=== PATIENT | female | born 1940 | race Caucasian/White ===

== ENCOUNTER 2016-06-06 07:58 | Day surgery (SDC) | payer MEDICARE ==
[2016-06-05 15:05] VITALS: BMI 30.8
[~2016-06-06 07:58] MED LIST: SODIUM CHLORIDE 0.9% 1,000 ML IV SCH; ceFAZolin 2 GM in SODIUM CHLORIDE 0.9% 100 ML IVPB ONE
[2016-06-06 08:29] VITALS: RESP 16; TEMP 97.7
[2016-06-06 08:35] LABS: INR 2.6 (<1.1)
--- NOTE | 2016-06-06 09:58 | P.PCN ---
Preoperative Diagnosis: Twelve-lead ECG ECG on 2016 shows sinus mechanism normal DE narrow QRS left axis deviation inverted T waves in lead 3 Tilt table test Baseline blood pressure 130/62 mmHg. Baseline heart rate 67 beats a minute Patient tilted upright at an angle of 70 per protocol Normal heart rate and blood pressure response to upright tilting it patient had an episode where she felt weird, was not able to speak clearly and felt as if she was floating. The symptoms last for about 1 minute. At that time her blood pressure was between 134/68 mmHg-145/67 mmHg. Heart rates are in the 60s. She was laid supine the end of the procedure Impression Normal heart rate and blood pressure response to upright tilting
[2016-06-06] MEDS ORDERED: ceFAZolin 1,000 MG/50 ML BAG (PMX) IVPB ONE (10:05)
[2016-06-06] MEDS: MIDAZOLAM 2 MG/2 ML VIAL IVP ONE ×2 (10:09→10:12)
[2016-06-06] MEDS: LIDOCAINE 2% INJ 20 MG/ML SQ ONE ×2 (10:13→10:17)
[2016-06-06 11:10] VITALS: BP 115/58; PULSE 66
--- NOTE | 2016-06-06 12:17 | P.PCN ---
Preoperative Diagnosis: Loop monitor implant Primary physicians: Dr. Alves Purchasing Officer: Dr. Bsailio Indication: Rule out atrial fibrillation, silent episodes Patient was brought to the EP lab in a fasting state. Written informed consent was obtained prior to the procedure. The left pectoral area was prepped and draped per protocol. Intravenous antibiotic was administered preoperatively. A subcutaneous Loop monitor was implanted successfully and the wound was closed per protocol. The device was programmed to detect significant ollie- arrhythmic and tachy-arrhythmic events, per protocol. Device and programming details: A. fib protocol programmed Patient underwent EP procedure under conscious sedation/moderate sedation, monitoring of the level of consciousness and physiologic parameters including but not limited to vital signs and oxygenation. Patient tolerated the procedure well without any acute complications. Start time: Stop time:
== END 2016-06-06 11:38 | disposition home or self-care (01) ==
LOC: CATHEP 07:58
PROVIDERS: ATTEND Internal Medicine Clinical Cardiac Electrophysiology
DX: R55 Syncope and collapse (principal); I48.0 Paroxysmal atrial fibrillation; Z79.01 Long term (current) use of anticoagulants; I10 Essential (primary) hypertension; E78.00 Pure hypercholesterolemia, unspecified; Z79.82 Long term (current) use of aspirin; Z79.899 Other long term (current) drug therapy
CPT/HCPCS: 93005; 33282; 93660; 85610; 99152; C1764; J2001; J2250; J0690

== ENCOUNTER → 2017-02-25 | Day surgery (SDC) | payer MEDICARE ==
[2017-02-24 12:29] VITALS: BMI 31.6
[~2017-02-25] MED LIST changes: +MIDAZOLAM 2 MG/2 ML VIAL IVP ONE; +MIDAZOLAM 2 MG/2 ML VIAL ONE; +SODIUM CHLORIDE 0.9% 250 ML IV ONE; -ceFAZolin 2 GM in SODIUM CHLORIDE 0.9% 100 ML IVPB ONE; +fentaNYL (PF) 50 MCG/ML 2 ML AMP IVP ONE; +fentaNYL (PF) 50 MCG/ML 2 ML AMP ONE
[2017-02-25 11:02] VITALS: RESP 18; TEMP 98
[2017-02-25 11:44] LABS: INR 2.5 (<1.2)
[2017-02-25] MEDS: BENZOCAINE SPRAY 1 CAN MUCOUS MEM ONE ×2 (12:01→12:12)
--- NOTE | 2017-02-25 13:12 | ECHOT ---
TRANSESOPHAGEAL ECHOCARDIOGRAM PERFORMING PHYSICIAN: Ovidio Sunshine MD PROCEDURE PERFORMED: Transesophageal echocardiogram. INDICATIONS: Mrs. Caballero is a 76-year-old female who was advised transesophageal echocardiogram because to evaluate for pulmonary hypertension. PROCEDURE DESCRIPTION: The patient was given intravenous sedation with Versed and fentanyl and transesophageal echocardiogram was performed without any complications. FINDINGS: Left ventricular chamber is mildly dilated with evidence of global hypokinesia with estimated ejection fraction in the range of 35% to 40%. Bi-atrial enlargement is noted. Mitral valve is mildly thickened. There is a mild to moderate mitral regurgitation noted. There is a moderate degree of tricuspid regurgitation noted and minimal aortic regurgitation is noted. Aortic valve is thickened. Tricuspid valve morphology is normal. Left atrial appendage is clear. There is no evidence of any thrombus. Interatrial septum is intact. There is no evidence of any PFO by saline contrast study. The right-sided pressures were calculated in the range of 45 to 50 mmHg. FINAL IMPRESSION: 1. This study reveals mildly enlarged left ventricular chamber size with global hypokinesia with estimated ejection fraction of 35% to 40%. 2. Mild thickening of the mitral and aortic leaflets is noted. 3. There is a [id number] degree of mitral and moderate degree of tricuspid regurgitation noted. 4. The pulmonary artery systolic pressure is calculated in the range of 45 to 50 mmHg. 5. Interatrial septum is intact. There is no evidence of any patent foramen ovale by saline contrast study. 6. There is a mild atherosclerotic plaque noted in descending thoracic aorta. MMODL / IJN: [id number] /
[2017-02-25 14:45] VITALS: BP 138/62; PULSE 72
== END ==
LOC: CATHCVL 10:29
PROVIDERS: ATTEND Internal Medicine Cardiovascular Disease
DX: I08.3 Combined rheumatic disorders of mitral, aortic and tricuspid valves (principal); I70.0 Atherosclerosis of aorta; I48.0 Paroxysmal atrial fibrillation; I25.10 Atherosclerotic heart disease of native coronary artery without angina pectoris; I10 Essential (primary) hypertension; E78.5 Hyperlipidemia, unspecified; E03.9 Hypothyroidism, unspecified; Z79.01 Long term (current) use of anticoagulants; Z79.82 Long term (current) use of aspirin; Z79.899 Other long term (current) drug therapy
CPT/HCPCS: 93312; 93320; 93325; 85610; J2250; J3010

== ENCOUNTER 2017-05-21 19:40 | Emergency (ER) | payer MEDICARE ==
--- NOTE | 2017-05-21 20:20 | ED ---
General Adult HPI - General Source: patient, RN notes reviewed Mode of arrival: ambulatory Limitations: no limitations <Henrry Jain - Last Filed: 05/21/17 21:03> <Libby Horowitz - Last Filed: 05/21/17 22:29> <Henrry Garnett - Last Filed: 05/21/17 22:52> - General Chief complaint: Shortness of Breath Stated complaint: RODNEY/constipation/rectal bleeding Time Seen by Provider: 05/21/17 19:50 - History of Present Illness Initial comments: This is a 69-year-old female presents emergency Department she's been constipated for 3 or 4 days. According to the family the patient was attempted to be disimpacted by the daughter and now she has some rectal bleeding. Patient is also on Coumadin. Patient also complained of some shortness of breath. Patient has had no calf pain or leg swelling. Patient has no chest pain or palpitations. Patient denies any recent fever chills or cough. Patient denies any abdominal pain just a little abdominal distention. Patient denies headache patient denies numbness or weakness. (Henrry Jain) - Related Data Home Medications Medication Instructions Recorded Confirmed Aspirin 81 mg PO DAILY 08/20/13 05/21/17 Atorvastatin [Lipitor] 40 mg PO HS 08/20/13 05/21/17 Famotidine [Pepcid] 20 mg PO DAILY 08/20/13 05/21/17 Furosemide [Lasix] 40 mg PO DAILY 08/20/13 05/21/17 Probenecid 500 mg PO DAILY 08/20/13 05/21/17 Thyroid,Pork [[place] Thyroid] 90 mg PO DAILY 08/20/13 05/21/17 Cyanocobalamin (Vitamin B-12) 1,000 mcg PO DAILY@1200 02/27/17 05/21/17 [Vitamin B-12] Metoprolol Succinate (ER) [Toprol 50 mg PO DAILY 02/27/17 05/21/17 Xl] Pyridoxine [Vitamin B-6] 50 mg PO DAILY@1200 02/27/17 05/21/17 Folic Acid 1 mg PO DAILY@1200 05/21/17 05/21/17 Potassium Chloride ER [K-Dur 20] 20 meq PO DAILY 05/21/17 05/21/17 Warfarin [Coumadin] 2.5 mg PO HS 05/21/17 05/21/17 Allergies Allergy/AdvReac Type Severity Reaction Status Date / Time No Known Allergies Allergy Unverified 05/21/17 20:22 Review of Systems ROS Other: All systems not noted in ROS Statement are negative. <Henrry Jain - Last Filed: 05/21/17 21:03> ROS Other: All systems not noted in ROS Statement are negative. <Libby Horowitz - Last Filed: 05/21/17 22:29> ROS Other: All systems not noted in ROS Statement are negative. <Henrry Garnett - Last Filed: 05/21/17 22:52> ROS Statement: Those systems with pertinent positive or pertinent negative responses have been documented in the HPI. Past Medical History Past Medical History: CVA/TIA, GERD/Reflux, Hyperlipidemia, Hypertension, Thyroid Disorder Additional Past Medical History / Comment(s): See Dr Wang's H&P. SYNCOPE, SEIZURE LIKE EPISODES WITHOUT MENTAL INVOLVEMENT History of Any Multi-Drug Resistant Organisms: None Reported Past Surgical History: Heart Catheterization, Hysterectomy Additional Past Surgical History / Comment(s): Partial thyroidectomy. BILAT CATARACTS Past Anesthesia/Blood Transfusion Reactions: No Reported Reaction Past Psychological History: No Psychological Hx Reported Smoking Status: Never smoker - Past Family History Mother Family Medical History: Congestive Heart Failure (CHF), Coronary Artery Disease (CAD), Diabetes Mellitus Sister(s) Family Medical History: Cancer Additional Family Medical History / Comment(s): x2 sisters Brother(s) Family Medical History: Cancer <Henrry Jain - Last Filed: 05/21/17 21:03> General Exam Limitations: no limitations <Henrry Jain - Last Filed: 05/21/17 21:03> <Libby Horowitz - Last Filed: 05/21/17 22:29> <Henrry Garnett - Last Filed: 05/21/17 22:52> - General Exam Comments Initial Comments: GENERAL: Patient is well-developed and well-nourished. Patient is nontoxic and well- hydrated and is in mild distress. ENT: Neck is soft and supple. No significant lymphadenopathy is noted. Oropharynx is clear. Moist mucous membranes. Neck has full range of motion without eliciting any pain. There is no thyroid enlargement and no masses were felt. EYES: The sclera were anicteric and conjunctiva were pink and moist. Extraocular movements were intact and pupils were equal round and reactive to light. Eyelids were unremarkable. PULMONARY: Unlabored respirations. Good breath sounds bilaterally. No audible rales rhonchi or wheezing was noted. CARDIOVASCULAR: There is a regular rate and rhythm without any murmurs gallops or rubs. ABDOMEN: Soft and nontender with normal bowel sounds. No palpable organomegaly was noted. There is no palpable pulsatile mass. SKIN: Skin is clear with no lesions or rashes and otherwise unremarkable. NEUROLOGIC: Patient is alert and oriented x3. Cranial nerves II through XII are grossly intact. Motor and sensory are also intact. Normal speech, volume and content. Symmetrical smile. MUSCULOSKELETAL: Normal extremities with adequate strength and full range of motion. LYMPHATICS: No significant lymphadenopathy is noted PSYCHIATRIC: Normal psychiatric evaluation. (Henrry Jain) Course <Henrry Jain - Last Filed: 05/21/17 21:03> <Libby Horowitz - Last Filed: 05/21/17 22:29> <Henrry Garnett - Last Filed: 05/21/17 22:52> Vital Signs 05/21/17 05/21/17 05/21/17 19:50 20:28 20:36 Temperature 97.2 F L 97.6 F Pulse Rate 101 H 108 H Respiratory 25 H 20 18 Rate Blood Pressure 134/64 143/80 O2 Sat by Pulse 100 99 Oximetry 05/21/17 05/21/17 21:50 22:36 Temperature Pulse Rate 106 H 106 H Respiratory 15 20 Rate Blood Pressure 127/68 136/80 O2 Sat by Pulse 100 98 Oximetry - Reevaluation(s) Reevaluation #1: 05/21/17 22:52 Patient has successful disimpaction here in the emergency room, no current abdominal pain no bleeding, no significant shortness of breath (Henrry Garnett) EKG Findings - EKG Comments: EKG Findings:: EKG shows a flutter rate of 104, QRS 112, QTC 426 <Henrry Garnett - Last Filed: 05/21/17 22:52> Procedures - Rectal Disimpaction Consent Obtained: verbal consent Indication: fecal impaction Procedural Sedation: No Technique: manual disimpaction with gloved finger Result: significant stool output Complications: none Patient Tolerated Procedure: well, no complications <Libby Horowitz - Last Filed: 05/21/17 22:29> Medical Decision Making - Lab Data Result diagrams: 05/21/17 20:25 <Henrry Jain - Last Filed: 05/21/17 21:03> - Lab Data Result diagrams: 05/21/17 20:25 05/21/17 20:25 <Libby Horowitz - Last Filed: 05/21/17 22:29> - Lab Data Result diagrams: 05/21/17 20:25 05/21/17 20:25 - Radiology Data Radiology results: report reviewed (Chest x-ray shows full stool pertinent and x -ray KUB), image reviewed <Henrry Garnett - Last Filed: 05/21/17 22:52> - Medical Decision Making EKG shows atrial flutter at 104 bpm QRS is under 12 QT interval [address] Garnett will be taking over this patient at 9:00 (Henrry Jain) 69 female the ER with abdominal pain, fecal impaction. Patient disimpacted here in the emergency room, given strict bowel regimen to increase fluid intake at home and patient can be discharged home (Henrry Granett) - Lab Data Lab Results 05/21/17 05/21/17 05/21/17 Range/Units 20:25 20:25 20:25 WBC 16.7 H (3.8-10.6) k/uL RBC 4.49 (3.80-5.40) m/uL Hgb 13.2 (11.4-16.0) gm/dL Hct 40.0 (34.0-46.0) % MCV 89.3 (80.0-100.0) fL MCH 29.5 (25.0-35.0) pg MCHC 33.0 (31.0-37.0) g/dL RDW 14.4 (11.5-15.5) % Plt Count 210 (150-450) k/uL Neutrophils % 83 % Lymphocytes % 10 % Monocytes % 5 % Eosinophils % 0 % Basophils % 0 % Neutrophils # 13.9 H (1.3-7.7) k/uL Lymphocytes # 1.7 (1.0-4.8) k/uL Monocytes # 0.8 (0-1.0) k/uL Eosinophils # 0.1 (0-0.7) k/uL Basophils # 0.0 (0-0.2) k/uL PT (9.0-12.0) sec INR (<1.2) APTT (22.0-30.0) sec Sodium 142 (137-145) mmol/L Potassium 3.7 (3.5-5.1) mmol/L Chloride 104 (98-107) mmol/L Carbon Dioxide 22 (22-30) mmol/L Anion Gap 16 mmol/L BUN 27 H (7-17) mg/dL Creatinine 0.90 (0.52-1.04) mg/dL Est GFR (MDRD) Af Amer >60 (>60 ml/min/1.73 sqM) Est GFR (MDRD) Non-Af >60 (>60 ml/min/1.73 sqM) Glucose 123 H (74-99) mg/dL Calcium 9.9 (8.4-10.2) mg/dL Total Bilirubin 0.9 (0.2-1.3) mg/dL AST 28 (14-36) U/L ALT 25 (9-52) U/L Alkaline Phosphatase 146 H (38-126) U/L Total Creatine Kinase 99 (30-135) U/L CK-MB (CK-2) 1.1 (0.0-2.4) ng/mL CK-MB (CK-2) Rel Index 1.1 Troponin I <0.012 (0.000-0.034) ng/mL Total Protein 7.9 (6.3-8.2) g/dL Albumin 4.1 (3.5-5.0) g/dL 05/21/17 Range/Units 20:25 WBC (3.8-10.6) k/uL RBC (3.80-5.40) m/uL Hgb (11.4-16.0) gm/dL Hct (34.0-46.0) % MCV (80.0-100.0) fL MCH (25.0-35.0) pg MCHC (31.0-37.0) g/dL RDW (11.5-15.5) % Plt Count (150-450) k/uL Neutrophils % % Lymphocytes % % Monocytes % % Eosinophils % % Basophils % % Neutrophils # (1.3-7.7) k/uL Lymphocytes # (1.0-4.8) k/uL Monocytes # (0-1.0) k/uL Eosinophils # (0-0.7) k/uL Basophils # (0-0.2) k/uL PT 21.1 H (9.0-12.0) sec INR 2.3 H (<1.2) APTT 30.6 H (22.0-30.0) sec Sodium (137-145) mmol/L Potassium (3.5-5.1) mmol/L Chloride (98-107) mmol/L Carbon Dioxide (22-30) mmol/L Anion Gap mmol/L BUN (7-17) mg/dL Creatinine (0.52-1.04) mg/dL Est GFR (MDRD) Af Amer (>60 ml/min/1.73 sqM) Est GFR (MDRD) Non-Af (>60 ml/min/1.73 sqM) Glucose (74-99) mg/dL Calcium (8.4-10.2) mg/dL Total Bilirubin (0.2-1.3) mg/dL AST (14-36) U/L ALT (9-52) U/L Alkaline Phosphatase (38-126) U/L Total Creatine Kinase (30-135) U/L CK-MB (CK-2) (0.0-2.4) ng/mL CK-MB (CK-2) Rel Index Troponin I (0.000-0.034) ng/mL Total Protein (6.3-8.2) g/dL Albumin (3.5-5.0) g/dL Disposition <Henrry Jain - Last Filed: 05/21/17 21:03> <Libby Horowitz - Last Filed: 05/21/17 22:29> <Henrry Garnett - Last Filed: 05/21/17 22:52> Clinical Impression: Acute constipation, Fecal impaction Disposition: HOME SELF-CARE Condition: Good Instructions: Fecal Impaction (ED) Referrals: Franck Alves MD [Primary Care Provider] - 1-2 days
[2017-05-21 20:44] LABS: Basophils % (A) 0 %; Eosinophils # (A) 0.1 k/uL (0-0.7); Eosinophils % (A) 0 %; HGB 13.2 gm/dL (11.4-16.0); Lymphocytes # (A) 1.7 k/uL (1.0-4.8); Lymphocytes % (A) 10 %; MCH 29.5 pg (25.0-35.0); MCV 89.3 fL (80.0-100.0); Mean Platelet Volume 8.5; Monocytes # (A) 0.8 k/uL (0-1.0); Monocytes % (A) 5 %; Neutrophils # (A) 13.9 k/uL (1.3-7.7); Neutrophils % (A) 83 %; Platelet Count 210 k/uL (150-450); RBC 4.49 m/uL (3.80-5.40); RDW 14.4 % (11.5-15.5); WBC 16.7 k/uL (3.8-10.6)
--- NOTE | 2017-05-21 20:56 | XR ---
EXAMINATION TYPE: XR chest 2V DATE OF EXAM: 05/21/2017 COMPARISON: 10/15/2015 HISTORY: Shortness of breath TECHNIQUE: Frontal and lateral views of the chest are obtained. FINDINGS: Scattered senescent parenchymal changes noted. Hyperinflation compatible with COPD. No evidence for infiltrate. No evidence for atelectasis. Heart size is stable. Mediastinal structures are stable and grossly unremarkable. No evidence for hilar prominence. Degenerative changes dorsal spine. IMPRESSION: 1. No evidence for acute pulmonary disease.
--- NOTE | 2017-05-21 21:00 | XR ---
EXAMINATION TYPE: XR KUB DATE OF EXAM: 05/21/2017 COMPARISON: NONE HISTORY: Pain TECHNIQUE: Single supine KUB image of the abdomen is obtained FINDINGS: Small bowel demonstrates no evidence for dilatation or air fluid levels. Gas and fecal material is seen in non-distended colon. No convincing evidence for pneumoperitoneum. No unusual calcifications. The lung bases are clear. The osseous structures are intact. IMPRESSION: 1. Overall nonobstructive bowel gas pattern.
[2017-05-21 21:03] LABS: INR 2.3 (<1.2); Partial Thromboplastin Time 30.6 sec (22.0-30.0); Prothrombin Time 21.1 sec (9.0-12.0)
[2017-05-21 21:05] LABS: ALT 25 U/L (9-52); AST 28 U/L (14-36); Albumin 4.1 g/dL (3.5-5.0); Alkaline Phosphatase 146 U/L (38-126); Anion Gap 16 mmol/L; Blood Urea Nitrogen 27 mg/dL (7-17); Calcium 9.9 mg/dL (8.4-10.2); Carbon Dioxide 22 mmol/L (22-30); Chloride 104 mmol/L (98-107); Creatine Kinase 99 U/L (30-135); Glucose 123 mg/dL (74-99); Potassium 3.7 mmol/L (3.5-5.1); Sodium 142 mmol/L (137-145); Total Bilirubin 0.9 mg/dL (0.2-1.3); Total Protein 7.9 g/dL (6.3-8.2)
[2017-05-21 21:17] LABS: Creatine Kinase MB 1.1 ng/mL (0.0-2.4); Troponin I <0.012 ng/mL (0.000-0.034)
[2017-05-21 21:53] VITALS: PULSE 106
[2017-05-21] MEDS ORDERED: POTASSIUM BICARB-CITRIC ACID 25 MEQ TABLET.EFF PO STA (21:58)
[2017-05-21] MEDS ORDERED: SENNOSIDES-DOCUSATE SODIUM 1 EACH TAB PO STA (21:58)
[2017-05-21] MEDS ORDERED: SODIUM CHLORIDE 0.9% 1,000 ML IV STA (21:58)
[2017-05-21 22:38] VITALS: BP 136/80; RESP 20
[2017-05-21 23:04] VITALS: TEMP 97.4
== END 2017-05-21 23:09 | disposition home or self-care (01) ==
LOC: EC 19:40
DX: K56.41 Fecal impaction (principal); R06.02 Shortness of breath; K21.9 Gastro-esophageal reflux disease without esophagitis; E78.5 Hyperlipidemia, unspecified; I10 Essential (primary) hypertension; E07.9 Disorder of thyroid, unspecified; Z95.5 Presence of coronary angioplasty implant and graft; Z86.73 Personal history of transient ischemic attack (TIA), and cerebral infarction without residual deficits; Z79.01 Long term (current) use of anticoagulants; Z79.82 Long term (current) use of aspirin; Z79.899 Other long term (current) drug therapy
CPT/HCPCS: 36415; 71046; 74018; 80053; 82550; 82553; 84484; 85025; 85610; 85730; 93005; 96360; 99285

== ENCOUNTER 2018-03-18 12:04 | Emergency (ER) | payer MEDICARE ==
--- NOTE | 2018-03-18 12:15 | ED ---
General Adult HPI - General Chief complaint: Neuro Symptoms/Deficit Stated complaint: Garbled speech Time Seen by Provider: 03/18/18 12:06 Source: patient, EMS, RN notes reviewed Mode of arrival: EMS Limitations: no limitations - History of Present Illness Initial comments: Patient is a pleasant 78-year-old female presenting to the emergency department following an episode of garbled speech. 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 Patient had an episode of garbled speech lasting between 5 and 10 minutes. Symptoms have now resolved. Patient denies any confusion. Patient states she understands that she was trying to say however the words did not come out correctly. No arm or leg weakness. No reported facial weakness. No headache. Patient did have similar symptoms a couple of years ago however is unclear why. Patient is on Coumadin with history of atrial fibrillation. - Related Data Home Medications Medication Instructions Recorded Confirmed Famotidine [Pepcid] 20 mg PO DAILY 08/20/13 03/18/18 Probenecid 500 mg PO DAILY 08/20/13 03/18/18 Thyroid,Pork [[place] Thyroid] 90 mg PO DAILY 08/20/13 03/18/18 Losartan [Cozaar] 25 mg PO DAILY 03/18/18 03/18/18 Metoprolol Succinate (ER) [Toprol 100 mg PO DAILY 03/18/18 03/18/18 Xl] Warfarin Sodium 2.5 mg PO SUMOWETHFRSA 03/18/18 03/18/18 Warfarin Sodium [Jantoven] 5 mg PO TU 03/18/18 03/18/18 Allergies Allergy/AdvReac Type Severity Reaction Status Date / Time No Known Allergies Allergy Unverified 05/21/17 20:22 Review of Systems ROS Statement: Those systems with pertinent positive or pertinent negative responses have been documented in the HPI. ROS Other: All systems not noted in ROS Statement are negative. Constitutional: Denies: fever Eyes: Denies: eye pain ENT: Denies: ear pain Respiratory: Denies: cough Cardiovascular: Denies: chest pain, palpitations Endocrine: Denies: fatigue Gastrointestinal: Denies: abdominal pain Genitourinary: Denies: dysuria Musculoskeletal: Denies: back pain Skin: Denies: rash Neurological: Denies: headache, weakness, confusion Past Medical History Past Medical History: CVA/TIA, GERD/Reflux, Hyperlipidemia, Hypertension, Thyroid Disorder Additional Past Medical History / Comment(s): See Dr Wang's H&P. SYNCOPE, SEIZURE LIKE EPISODES WITHOUT MENTAL INVOLVEMENT History of Any Multi-Drug Resistant Organisms: None Reported Past Surgical History: Heart Catheterization, Hysterectomy Additional Past Surgical History / Comment(s): Partial thyroidectomy. BILAT CATARACTS Past Anesthesia/Blood Transfusion Reactions: No Reported Reaction Past Psychological History: No Psychological Hx Reported Smoking Status: Never smoker - Past Family History Mother Family Medical History: Congestive Heart Failure (CHF), Coronary Artery Disease (CAD), Diabetes Mellitus Sister(s) Family Medical History: Cancer Additional Family Medical History / Comment(s): x2 sisters Brother(s) Family Medical History: Cancer General Exam Limitations: no limitations General appearance: alert, in no apparent distress Head exam: Present: atraumatic Eye exam: Present: normal appearance, PERRL, EOMI. Absent: nystagmus ENT exam: Present: normal oropharynx Neck exam: Present: normal inspection Respiratory exam: Present: normal lung sounds bilaterally Cardiovascular Exam: Present: regular rate, irregular rhythm GI/Abdominal exam: Present: soft. Absent: tenderness Extremities exam: Present: normal inspection. Absent: pedal edema, calf tenderness Neurological exam: Present: alert, oriented X3, CN II-XII intact. Absent: motor sensory deficit Expanded Neurological exam: Absent: protecting the airway Patient oriented to: Present: person, place, time Speech: Present: fluid speech Cranial nerves: EOM's Intact: Normal, Facial Sensation: Normal Cerebellar function: Finger to Nose: Normal Sensory exam: Upper Extremity Light Touch: Normal, Lower Extremity Light Touch: Normal Motor strength exam: RUE: 5, LUE: 5, RLE: 5, LLE: 5 Eye Response: (4) open spontaneously Motor Response: (6) obeys commands Verbal Response: (5) oriented Psychiatric exam: Present: normal affect, normal mood Skin exam: Present: normal color Course Vital Signs 03/18/18 12:07 Temperature 98.6 F Pulse Rate 83 Respiratory 17 Rate Blood Pressure 139/86 O2 Sat by Pulse 100 Oximetry EKG Findings - EKG Comments: EKG Findings:: A. fib with rate of 76. QRS 104. QT 394. QTC 443. Left axis. Left anterior fascicular block. Low voltage QRS. No acute ST change. Inferior Q waves Medical Decision Making - Medical Decision Making Patient reevaluated and resting comfortably in bed. Patient remained symptom- free. is present and states this is a chronic occurrence for the patient. He states this occurs almost daily. He states this has been occurring for months. Patient has been hospitalized for this previously and at least 3 different hospitals with extensive evaluation. Patient and family are made aware of concerns for potential repeat mini strokes or TIA or other causes. Patient is recommended admission for monitoring and further evaluation including neurology evaluation. Case was discussed with Dr. Alves who was in agreement. Patient and family are made aware of this. Despite this they do refuse admission. They do demonstrate medical decision making and will leave AGAINST MEDICAL ADVICE. They are agreeable to close follow-up. - Lab Data Result diagrams: 03/18/18 12:29 03/18/18 12:29 Lab Results 03/18/18 03/18/18 03/18/18 Range/Units 12:29 12:29 12:29 WBC 9.3 (3.8-10.6) k/uL RBC 4.51 (3.80-5.40) m/uL Hgb 13.0 (11.4-16.0) gm/dL Hct 40.4 (34.0-46.0) % MCV 89.6 (80.0-100.0) fL MCH 28.8 (25.0-35.0) pg MCHC 32.2 (31.0-37.0) g/dL RDW 14.4 (11.5-15.5) % Plt Count 202 (150-450) k/uL Neutrophils % 67 % Lymphocytes % 23 % Monocytes % 5 % Eosinophils % 2 % Basophils % 0 % Neutrophils # 6.2 (1.3-7.7) k/uL Lymphocytes # 2.2 (1.0-4.8) k/uL Monocytes # 0.5 (0-1.0) k/uL Eosinophils # 0.2 (0-0.7) k/uL Basophils # 0.0 (0-0.2) k/uL PT (9.0-12.0) sec INR (<1.2) APTT (22.0-30.0) sec Sodium 142 (137-145) mmol/L Potassium 4.5 (3.5-5.1) mmol/L Chloride 109 H (98-107) mmol/L Carbon Dioxide 23 (22-30) mmol/L Anion Gap 10 mmol/L BUN 11 (7-17) mg/dL Creatinine 0.90 (0.52-1.04) mg/dL Est GFR (CKD-EPI)AfAm 71 (>60 ml/min/1.73 sqM) Est GFR (CKD-EPI)NonAf 61 (>60 ml/min/1.73 sqM) Glucose 117 H (74-99) mg/dL Calcium 9.5 (8.4-10.2) mg/dL Total Bilirubin 1.0 (0.2-1.3) mg/dL AST 30 (14-36) U/L ALT 29 (9-52) U/L Alkaline Phosphatase 145 H (38-126) U/L Total Creatine Kinase 38 (30-135) U/L CK-MB (CK-2) 0.8 (0.0-2.4) ng/mL CK-MB (CK-2) Rel Index 2.1 Troponin I <0.012 (0.000-0.034) ng/mL Total Protein 7.6 (6.3-8.2) g/dL Albumin 3.8 (3.5-5.0) g/dL 03/18/18 Range/Units 12:29 WBC (3.8-10.6) k/uL RBC (3.80-5.40) m/uL Hgb (11.4-16.0) gm/dL Hct (34.0-46.0) % MCV (80.0-100.0) fL MCH (25.0-35.0) pg MCHC (31.0-37.0) g/dL RDW (11.5-15.5) % Plt Count (150-450) k/uL Neutrophils % % Lymphocytes % % Monocytes % % Eosinophils % % Basophils % % Neutrophils # (1.3-7.7) k/uL Lymphocytes # (1.0-4.8) k/uL Monocytes # (0-1.0) k/uL Eosinophils # (0-0.7) k/uL Basophils # (0-0.2) k/uL PT 21.8 H (9.0-12.0) sec INR 2.2 H (<1.2) APTT 32.6 H (22.0-30.0) sec Sodium (137-145) mmol/L Potassium (3.5-5.1) mmol/L Chloride (98-107) mmol/L Carbon Dioxide (22-30) mmol/L Anion Gap mmol/L BUN (7-17) mg/dL Creatinine (0.52-1.04) mg/dL Est GFR (CKD-EPI)AfAm (>60 ml/min/1.73 sqM) Est GFR (CKD-EPI)NonAf (>60 ml/min/1.73 sqM) Glucose (74-99) mg/dL Calcium (8.4-10.2) mg/dL Total Bilirubin (0.2-1.3) mg/dL AST (14-36) U/L ALT (9-52) U/L Alkaline Phosphatase (38-126) U/L Total Creatine Kinase (30-135) U/L CK-MB (CK-2) (0.0-2.4) ng/mL CK-MB (CK-2) Rel Index Troponin I (0.000-0.034) ng/mL Total Protein (6.3-8.2) g/dL Albumin (3.5-5.0) g/dL - Radiology Data Radiology results: report reviewed (Computed tomography scan of the brain shows atrophy and chronic changes. No acute abnormality.), image reviewed (Chest x- ray shows cardiac megaly. No acute process.) Disposition Clinical Impression: Garbled speech Disposition: Left Against Medical Advice Instructions: Transient Ischemic Attack (ED) Additional Instructions: Please follow-up today or tomorrow with Dr. Alves. Return for speech problems , confusion, weakness, headache, worsening or change in symptoms or other concerns. Is patient prescribed a controlled substance at d/c from ED?: No Referrals: Franck Alves MD [Primary Care Provider] - 1-2 days Time of Disposition: 14:03
[2018-03-18 12:45] LABS: Basophils % (A) 0 %; Eosinophils # (A) 0.2 k/uL (0-0.7); Eosinophils % (A) 2 %; HCT 40.4 % (34.0-46.0); Lymphocytes # (A) 2.2 k/uL (1.0-4.8); Lymphocytes % (A) 23 %; MCH 28.8 pg (25.0-35.0); MCHC 32.2 g/dL (31.0-37.0); MCV 89.6 fL (80.0-100.0); Mean Platelet Volume 8.2; Monocytes # (A) 0.5 k/uL (0-1.0); Monocytes % (A) 5 %; Neutrophils # (A) 6.2 k/uL (1.3-7.7); Neutrophils % (A) 67 %; Platelet Count 202 k/uL (150-450); RBC 4.51 m/uL (3.80-5.40); RDW 14.4 % (11.5-15.5); WBC 9.3 k/uL (3.8-10.6)
[2018-03-18 12:51] LABS: Potassium 4.5 mmol/L (3.5-5.1)
[2018-03-18 12:52] LABS: Albumin 3.8 g/dL (3.5-5.0); Calcium 9.5 mg/dL (8.4-10.2); Total Protein 7.6 g/dL (6.3-8.2)
[2018-03-18 12:55] LABS: INR 2.2 (<1.2); Partial Thromboplastin Time 32.6 sec (22.0-30.0); Prothrombin Time 21.8 sec (9.0-12.0)
--- NOTE | 2018-03-18 12:59 | CT ---
EXAMINATION TYPE: CT brain wo con DATE OF EXAM: 03/18/2018 COMPARISON: 10/15/2015 HISTORY: 10/15/2015. Episodic aphasia and weakness. CT DLP: 1166.4 mGycm Automated exposure control for dose reduction was used. TECHNIQUE: CT scan of the head is performed without contrast. FINDINGS: There is no acute intracranial hemorrhage or midline shift identified. There is diffuse v entricular and sulcal prominence consistent with diffuse age-related cerebral atrophy. There is low- attenuation in the periventricular white matter consistent with chronic small vessel ischemic change. The globes are intact and the visualized sinuses are clear. IMPRESSION: No acute intracranial hemorrhage or midline shift. There is diffuse age-related cerebra l atrophy and chronic small vessel ischemic change noted. If clinical symptoms persist MRI should be considered.
[2018-03-18 13:16] LABS: Creatine Kinase 38 U/L (30-135)
[2018-03-18 13:30] LABS: Creatine Kinase MB 0.8 ng/mL (0.0-2.4); Troponin I <0.012 ng/mL (0.000-0.034)
--- NOTE | 2018-03-18 13:40 | XR ---
EXAMINATION TYPE: XR chest 2V DATE OF EXAM: 03/18/2018 COMPARISON: Prior chest x-ray May 21, 2017. HISTORY: Altered mental status and weakness. TECHNIQUE: Frontal and lateral views of the chest are obtained. FINDINGS: There is no focal air space opacity, pleural effusion, or pneumothorax seen. The cardiac silhouette size remains enlarged. The upper quarter is redemonstrated overlying left heart. The osse ous structures are intact. IMPRESSION: Cardiomegaly without acute pulmonary process. No significant change from prior.
[2018-03-18 14:17] VITALS: BP 121/74; PULSE 69; RESP 18; TEMP 96.9
== END 2018-03-18 14:15 | disposition left against medical advice (07) ==
LOC: EC 12:04
DX: R47.81 Slurred speech (principal); G31.9 Degenerative disease of nervous system, unspecified; I10 Essential (primary) hypertension; K21.9 Gastro-esophageal reflux disease without esophagitis; E07.9 Disorder of thyroid, unspecified; I48.91 Unspecified atrial fibrillation; Z79.01 Long term (current) use of anticoagulants; Z79.899 Other long term (current) drug therapy; Z86.73 Personal history of transient ischemic attack (TIA), and cerebral infarction without residual deficits; Z95.818 Presence of other cardiac implants and grafts
CPT/HCPCS: 36415; 70450; 71046; 80053; 82550; 82553; 84484; 85025; 85610; 85730; 93005; 99285

== ENCOUNTER 2018-04-03 17:50 | Inpatient (IN) | payer MEDICARE ==
--- NOTE | 2018-04-03 18:42 | ED ---
Chest Pain HPI - General Chief Complaint: Chest Pain Stated Complaint: RODNEY Time Seen by Provider: 04/03/18 17:56 Source: patient, family, EMS, RN notes reviewed Mode of arrival: EMS Limitations: no limitations - History of Present Illness Initial Comments: This is a 77-year-old female with A. fib was brought in for evaluation of chest pain. She's had intermittent episodes of chest pain she's been [facility] she states she had an onset 3:30 today of retrosternal chest pressure 6/10 severity felt like someone was sitting on her chest it was intermittent on and off a total of [place] episode lasting about 2 minutes. She currently is pain-free she had no recent cough phlegm production she has a slight headache. She had shortness of breath associated with this. No other modifying factors at this time. MD Complaint: chest pain - Related Data Home Medications Medication Instructions Recorded Confirmed Famotidine [Pepcid] 20 mg PO DAILY 08/20/13 04/03/18 Thyroid,Pork [[place] Thyroid] 90 mg PO DAILY 08/20/13 04/03/18 Losartan [Cozaar] 25 mg PO DAILY 03/18/18 04/03/18 Warfarin Sodium 2.5 mg PO SUMOWETHFRSA 03/18/18 04/03/18 Atorvastatin [Lipitor] 40 mg PO DAILY 04/03/18 04/03/18 Flecainide [Tambocor] 50 mg PO Q12HR 04/03/18 04/03/18 Metoprolol Succinate (ER) [Toprol 50 mg PO DAILY 04/03/18 04/03/18 Xl] Warfarin [Coumadin] 5 mg PO TU 04/03/18 04/03/18 Allergies Allergy/AdvReac Type Severity Reaction Status Date / Time No Known Allergies Allergy Unverified 05/21/17 20:22 Review of Systems ROS Statement: Those systems with pertinent positive or pertinent negative responses have been documented in the HPI. ROS Other: All systems not noted in ROS Statement are negative. EKG Findings - EKG Results: EKG: interpreted by TERRENCE, sinus rhythm (Atrial fibrillation rate was 77 QRS 132 QT since QTC 400/452 nonspecific interventricular block and nonspecific lateral changes.) Past Medical History Past Medical History: CVA/TIA, GERD/Reflux, Hyperlipidemia, Hypertension, Thyroid Disorder Additional Past Medical History / Comment(s): See Dr Wang's H&P. SYNCOPE, SEIZURE LIKE EPISODES WITHOUT MENTAL INVOLVEMENT History of Any Multi-Drug Resistant Organisms: None Reported Past Surgical History: Heart Catheterization, Hysterectomy Additional Past Surgical History / Comment(s): Partial thyroidectomy. BILAT CATARACTS Past Anesthesia/Blood Transfusion Reactions: No Reported Reaction Past Psychological History: No Psychological Hx Reported Smoking Status: Never smoker Past Alcohol Use History: None Reported Past Drug Use History: None Reported - Past Family History Mother Family Medical History: Congestive Heart Failure (CHF), Coronary Artery Disease (CAD), Diabetes Mellitus Sister(s) Family Medical History: Cancer Additional Family Medical History / Comment(s): x2 sisters Brother(s) Family Medical History: Cancer General Exam - General Exam Comments Initial Comments: This is a well-developed well-nourished awake alert oriented 3 female Limitations: no limitations General appearance: alert, in no apparent distress Head exam: Present: atraumatic, normocephalic, normal inspection Eye exam: Present: normal appearance, PERRL, EOMI. Absent: scleral icterus, conjunctival injection, periorbital swelling ENT exam: Present: normal exam, mucous membranes moist Neck exam: Present: normal inspection. Absent: tenderness, meningismus, lymphadenopathy Respiratory exam: Present: normal lung sounds bilaterally. Absent: respiratory distress, wheezes, rales, rhonchi, stridor Cardiovascular Exam: Present: tachycardia, normal heart sounds. Absent: systolic murmur, diastolic murmur, rubs, gallop, clicks GI/Abdominal exam: Present: soft, normal bowel sounds. Absent: distended, tenderness, guarding, rebound, rigid Extremities exam: Present: normal inspection, full ROM, normal capillary refill. Absent: tenderness, pedal edema, joint swelling, calf tenderness Back exam: Present: normal inspection Neurological exam: Present: alert, oriented X3, CN II-XII intact Psychiatric exam: Present: normal affect, normal mood Skin exam: Present: warm, dry, intact, normal color. Absent: rash Course Vital Signs 04/03/18 04/03/18 04/03/18 17:57 18:16 19:04 Temperature 97.6 F Pulse Rate 109 H 75 Respiratory 18 18 18 Rate Blood Pressure 137/91 126/87 O2 Sat by Pulse 95 98 Oximetry - Reevaluation(s) Reevaluation #1: 04/03/18 20:05 Further information patient was placed on flecainide recently she states it makes her sick when she takes it. 04/03/18 20:06 Chest Pain MDM - MDM I did review the imaging is evidence a right pleural effusion. I did reevaluate the patient she had more episodes of chest pain. I did discuss the findings with her and her family as well as with Dr. Duque who is covering for Dr. Alves. Patient be admitted with cardiology consultation. Critical Care Time Critical Care Time: Yes Critical Care Time: 37 minutes of critical care time which includes initial presentation with history physical labs x-rays. Review of old charting was available. Multiple reevaluation the patient. Discussion with the admitting physician discussed with family members. Admission orders and documentation of the above. Disposition Clinical Impression: Chest pain, Congestive heart failure (CHF), Chronic atrial fibrillation, Renal insufficiency syndrome Disposition: ADMITTED IP TO THIS HOSP Condition: Stable Referrals: Franck Alves MD [Primary Care Provider] - 1-2 days
[2018-04-03 19:07] LABS: Anisocytosis Slight; Basophils # (A) 0.1 k/uL (0-0.2); Basophils % (A) 1 %; Eosinophils # (A) 0.2 k/uL (0-0.7); Eosinophils % (A) 2 %; HCT 40.1 % (34.0-46.0); Hypochromasia Slight; Lymphocytes # (A) 1.9 k/uL (1.0-4.8); Lymphocytes % (A) 20 %; MCHC 32.5 g/dL (31.0-37.0); MCV 92.3 fL (80.0-100.0); Mean Platelet Volume 8.6; Monocytes # (A) 0.6 k/uL (0-1.0); Monocytes % (A) 6 %; Neutrophils # (A) 6.3 k/uL (1.3-7.7); Neutrophils % (A) 69 %; Platelet Count 178 k/uL (150-450); RBC 4.34 m/uL (3.80-5.40); RDW 16.5 % (11.5-15.5); WBC 9.2 k/uL (3.8-10.6)
[2018-04-03 19:16] LABS: Albumin 3.6 g/dL (3.5-5.0); Calcium 9.2 mg/dL (8.4-10.2); Magnesium 1.8 mg/dL (1.6-2.3); Potassium 4.8 mmol/L (3.5-5.1); Total Bilirubin 0.8 mg/dL (0.2-1.3)
[2018-04-03 19:20] LABS: Partial Thromboplastin Time 36.2 sec (22.0-30.0); Prothrombin Time 48.1 sec (9.0-12.0)
[2018-04-03 19:22] LABS: Creatine Kinase 69 U/L (30-135)
[2018-04-03 19:36] LABS: Creatine Kinase MB 0.8 ng/mL (0.0-2.4); Troponin I <0.012 ng/mL (0.000-0.034)
--- NOTE | 2018-04-03 19:58 | XR ---
EXAMINATION TYPE: XR KUB DATE OF EXAM: 04/03/2018 COMPARISON: 05/21/2017 HISTORY: Chest pain abdominal pain 2 upright views were obtained and show no sign of intestinal obstruction or pneumoperitoneum. Fecal pattern is normal. There are no pathologic calcifications over the kidneys. Lung bases are clear of c onsolidation. There is no evidence of a mass. IMPRESSION: Nonacute abdomen. No change.
--- NOTE | 2018-04-03 19:59 | XR ---
EXAMINATION TYPE: XR chest 2V DATE OF EXAM: 04/03/2018 COMPARISON: 03/18/2018 HISTORY: Chest pain TECHNIQUE: Frontal and lateral views of the chest are obtained. FINDINGS: Heart is enlarged. There is pulmonary vascular congestion. There is slight blunting of rig ht costophrenic angle. There are chest leads. Bony thorax is intact. IMPRESSION: Small right pleural effusion. Mild pulmonary congestion without overt heart failure. Mil d pulmonary congestion is new compared to old exam.
[2018-04-03] MEDS ORDERED: FUROSEMIDE 10 MG/ML 4 ML VIAL IV STA (20:03)
[2018-04-03] MEDS: FUROSEMIDE 10 MG/ML 4 ML VIAL IV SCH (20:48)
[2018-04-03 21:23] LABS: Appearance,Urine Clear (Clear); Bacteria,Urine Rare /hpf; Bilirubin,Urine Negative (Negative); Blood,Urine Negative (Negative); Color,Urine Yellow; Glucose,Urine (UA) Negative (Negative); Hyaline Casts,Urine 7 /lpf (0-2); Ketones,Urine Negative (Negative); Leukocyte Esterase,Urine Small (Negative); Mucus,Urine Rare /hpf; Nitrite,Urine Negative (Negative); PH, Urine 5.5 (5.0-8.0); Protein,Urine Trace (Negative); RBC,Urine 1 /hpf (0-5); Specific Gravity,Urine 1.014 (1.001-1.035); Squamous Epithelial Cell,Urine 3 /hpf (0-4); Urobilinogen,Urine <2.0 mg/dL (<2.0); WBC,Urine 5 /hpf (0-5)
[2018-04-03] MEDS: NITROGLYCERIN OINT 1 INCH/GM PACKET TOPICAL SCH (22:52)
[2018-04-03] MEDS ORDERED: DEXTROSE 5% IN WATER 100 ML with AMIODARONE 150 MG IV ONE (23:13)
[2018-04-03] MEDS: AMIODARONE 450 MG in DEXTROSE 5% IN WATER 250 ML IV SCH ×2 (23:55)
[2018-04-04] MEDS: AMIODARONE 450 MG in DEXTROSE 5% IN WATER 250 ML IV SCH ×2 (06:44)
[2018-04-04] MEDS: FAMOTIDINE 20 MG TAB PO SCH (08:42)
[2018-04-04] MEDS: ATORVASTATIN 40 MG TAB PO SCH (08:42)
[2018-04-04] MEDS: NITROGLYCERIN OINT 1 INCH/GM PACKET TOPICAL SCH ×4 (08:42→21:39)
[2018-04-04] MEDS: THYROID, PORK 30 MG TAB PO SCH (08:42)
[2018-04-04] MEDS: FUROSEMIDE 10 MG/ML 4 ML VIAL IV SCH ×2 (08:42→20:20)
[2018-04-04] MEDS: METOPROLOL SUCCINATE (ER) 50 MG TAB.ER.24H PO SCH (08:43)
[2018-04-04] MEDS ORDERED: LOSARTAN 25 MG TAB PO SCH (09:00)
[2018-04-04] MEDS: ASPIRIN 325 MG TAB PO SCH (12:39)
--- NOTE | 2018-04-04 13:32 | P.CRDCN ---
History of Present Illness Consult date: 04/04/18 Consult reason: congestive heart failure History of present illness: This patient is seen for cardiac evaluation. Patient came to the hospital with the complaint of increasing shortness of breath for last 3-4 days patient has been having symptoms suggestive of orthopnea and PND. She also had some intermittent tightness in the chest. And does have a past history of atrial fibrillation. No definite history of for ambulation. His and had a loop recorder placed in the past and has been followed by Dr. Carlos patient had a previous transesophageal echocardiogram and the right heart catheterization done which showed evidence of for dilated cardiomyopathy with ejection fraction of 35-40% patient had a moderately elevated wedge pressure and the pulmonary hypertension and has been treated with the medications patient also has been on Coumadin. In the emergency room patient was found to be in congestive cardiac failure since admission in the hospital patient's breathing has improved he denies any chest discomfort. EKG is suggestive for atrial tachycardia emittance short bursts of rapid heart rate is noted patient's proBNP level is elevated Past Medical History Past Medical History: Atrial Fibrillation, CVA/TIA, GERD/Reflux, Hyperlipidemia , Hypertension, Thyroid Disorder Additional Past Medical History / Comment(s): See Dr Wang's H&P. SYNCOPE, SEIZURE LIKE EPISODES WITHOUT MENTAL INVOLVEMENT History of Any Multi-Drug Resistant Organisms: None Reported Past Surgical History: Heart Catheterization, Hysterectomy Additional Past Surgical History / Comment(s): Partial thyroidectomy. BILAT CATARACTS Past Anesthesia/Blood Transfusion Reactions: No Reported Reaction Past Psychological History: No Psychological Hx Reported Smoking Status: Never smoker Past Alcohol Use History: None Reported Past Drug Use History: None Reported - Past Family History Mother Family Medical History: Congestive Heart Failure (CHF), Coronary Artery Disease (CAD), Diabetes Mellitus Sister(s) Family Medical History: Cancer Additional Family Medical History / Comment(s): x2 sisters Brother(s) Family Medical History: Cancer Medications and Allergies Home Medications Medication Instructions Recorded Confirmed Type Famotidine [Pepcid] 20 mg PO DAILY 08/20/13 04/03/18 History Thyroid,Pork [[place] Thyroid] 90 mg PO DAILY 08/20/13 04/03/18 History Losartan [Cozaar] 25 mg PO DAILY 03/18/18 04/03/18 History Warfarin Sodium 2.5 mg PO SUMOWETHFRSA 03/18/18 04/03/18 History Atorvastatin [Lipitor] 40 mg PO DAILY 04/03/18 04/03/18 History Flecainide [Tambocor] 50 mg PO Q12HR 04/03/18 04/03/18 History Metoprolol Succinate (ER) [Toprol 50 mg PO DAILY 04/03/18 04/03/18 History Xl] Warfarin [Coumadin] 5 mg PO TU 04/03/18 04/03/18 History Allergies Allergy/AdvReac Type Severity Reaction Status Date / Time No Known Allergies Allergy Unverified 05/21/17 20:22 Physical Exam Vitals: Vital Signs Temp Pulse Pulse Resp BP BP Pulse Ox 04/04/18 11:41 96.4 F L 62 20 121/73 99 04/04/18 08:00 97.5 F L 69 20 113/75 99 04/04/18 04:00 96.9 F L 74 20 130/83 99 04/04/18 00:00 88 20 04/03/18 23:59 97.6 F 88 20 125/87 96 04/03/18 22:04 96.8 F L 106 H 20 117/93 98 04/03/18 21:03 97.6 F 102 H 20 136/98 100 04/03/18 20:15 98 18 143/82 99 04/03/18 19:04 75 18 126/87 98 04/03/18 18:16 18 04/03/18 17:57 97.6 F 109 H 18 137/91 95 Intake and Output 04/03/18 04/04/18 04/04/18 22:59 06:59 14:59 Intake Total 520 227.2 440 Output Total 0 Balance 520 227.2 440 Intake: Intake, IV Titration 227.2 Amount Amiodarone 450 mg In 227.2 Dextrose 5% in Water 250 ml @ 1 MG/MIN 33.33 mls/ hr IV .Q7H31M [facility] Rx#: [id number] Oral 520 440 Output: Urine 0 Other: Voiding Method Toilet # Voids 1 0 Weight 75.4 kg 75.4 kg Results 04/03/18 18:50 04/03/18 18:50 Cardiac Enzymes 04/03/18 04/03/18 Range/Units 18:50 18:50 AST 57 H (14-36) U/L CK-MB (CK-2) 0.8 (0.0-2.4) ng/mL Troponin I <0.012 (0.000-0.034) ng/mL Coagulation 04/03/18 Range/Units 18:50 PT 48.1 H (9.0-12.0) sec APTT 36.2 H (22.0-30.0) sec CBC 04/03/18 Range/Units 18:50 WBC 9.2 (3.8-10.6) k/uL RBC 4.34 (3.80-5.40) m/uL Hgb 13.0 (11.4-16.0) gm/dL Hct 40.1 (34.0-46.0) % Plt Count 178 (150-450) k/uL Comprehensive Metabolic Panel 04/03/18 Range/Units 18:50 Sodium 143 (137-145) mmol/L Potassium 4.8 (3.5-5.1) mmol/L Chloride 108 H (98-107) mmol/L Carbon Dioxide 25 (22-30) mmol/L BUN 19 H (7-17) mg/dL Creatinine 1.11 H (0.52-1.04) mg/dL Glucose 125 H (74-99) mg/dL Calcium 9.2 (8.4-10.2) mg/dL AST 57 H (14-36) U/L ALT 49 (9-52) U/L Alkaline Phosphatase 118 (38-126) U/L Total Protein 7.0 (6.3-8.2) g/dL Albumin 3.6 (3.5-5.0) g/dL Current Medications Generic Name Dose Route Start Last Admin Trade Name Freq PRN Reason Stop Dose Admin Aspirin 325 mg 04/04/18 12:00 04/04/18 12:39 Aspirin PO 325 mg DAILY BEAN Administration Atorvastatin Calcium 40 mg 04/04/18 09:00 04/04/18 08:42 Lipitor PO 40 mg DAILY BEAN Administration Famotidine 20 mg 04/04/18 09:00 04/04/18 08:42 Pepcid PO 20 mg DAILY BEAN Administration Furosemide 40 mg 04/04/18 08:00 04/04/18 08:42 Lasix IV 40 mg Q12H BEAN Administration Losartan Potassium 25 mg 04/04/18 09:00 04/04/18 08:42 Cozaar PO 25 mg DAILY BEAN Administration Metoprolol Succinate 50 mg 04/04/18 09:00 04/04/18 08:43 Toprol Xl PO 50 mg DAILY BEAN Administration Nitroglycerin 0.5 inch 04/03/18 22:00 04/04/18 12:40 Nitro-Bid Oint TOPICAL 0.5 inch QID BEAN Administration Ropinirole HCl 0.25 mg 04/03/18 21:45 04/03/18 22:02 Requip PO 0.25 mg HS BEAN Administration Thyroid 90 mg 04/04/18 09:00 04/04/18 08:42 [place] Thyroid PO 90 mg DAILY BEAN Administration Warfarin Sodium 2.5 mg 04/04/18 18:00 Coumadin PO SUMOWETHFRSA BEAN Warfarin Sodium 5 mg 04/07/18 18:00 Coumadin PO TU [facility] Intake and Output 04/03/18 04/04/18 04/04/18 22:59 06:59 14:59 Intake Total 520 227.2 440 Output Total 0 Balance 520 227.2 440 Intake: Intake, IV Titration 227.2 Amount Amiodarone 450 mg In 227.2 Dextrose 5% in Water 250 ml @ 1 MG/MIN 33.33 mls/ hr IV .Q7H31M [facility] Rx#: [id number] Oral 520 440 Output: Urine 0 Other: Voiding Method Toilet # Voids 1 0 Weight 75.4 kg 75.4 kg 04/03/18 18:50 04/03/18 18:50 EKG Interpretations (text) EKG is suggestive for atrial tachycardia with a variable degree of block Assessment and Plan Assessment: This patient is admitted with the symptoms of shortness of breath patient has evidence of acute on chronic systolic heart failure EKG is suggestive for atrial tachycardia with variable block. Patient has elevated PT/INR We will continue the patient on IV Lasix every 12 hourly. We will discontinue the Cozaar and start the patient on entresto from tomorrow. We will consider that treatment with Eliquis after the patient's INR is less than 2.
[2018-04-04] MEDS ORDERED: ALPRAZolam 0.25 MG TAB PO PRN (14:00)
[2018-04-04] MEDS ORDERED: ACETAMINOPHEN TAB 500 MG TAB PO PRN (14:00)
--- NOTE | 2018-04-04 14:42 | HP ---
HISTORY AND PHYSICAL I am covering for Dr. Alves. DATE OF SERVICE: 04/04/2018 CHIEF COMPLAINT: Chest pain and shortness of breath. HISTORY OF PRESENT ILLNESS: This 78-year-old woman with a past history of atrial fibrillation, CVA, GERD, hypertension, hyperlipidemia being followed by Dr. Alves in the outpatient setting also had a previous workup at [facility] and [facility] also. The patient complains of chest pain and as well as shortness of breath. Chest x-ray showed CHF indicating CHF acute on chronic systolic dysfunction. EKG showed atrial tachycardia with varying block. The patient admitted for further evaluation. There is no history of fever or rigors. No history of headache, loss of consciousness, seizures. PAST MEDICAL HISTORY: History of atrial fibrillation, CVA, TIA, GERD, hypertension, hyperlipidemia, history of hypothyroidism. MEDICATIONS: Medications prior to admission include home medications: 1. Coumadin 5 mg p.o. Friday. 2. Tambocor 50 mg p.o. b.i.d. 3. Lipitor 40 mg p.o. daily. 4. Toprol XL 50 mg p.o. daily. 5. Coumadin 2.5 mg Friday, Friday, Friday, , Friday, Friday. 6. [place] Thyroid 90 p.o. daily. 7. Cozaar 25 mg p.o. daily. 8. Pepcid 20 mg p.o. daily. ALLERGIES: None. FAMILY HISTORY: History of coronary artery disease, CHF, diabetes in the family. SOCIAL HISTORY: No history of smoking. No history of alcohol intake. REVIEW OF SYSTEMS: ENT: Diminished hearing, diminished vision. CARDIOVASCULAR SYSTEM: As mentioned. RESPIRATORY SYSTEM: As mentioned earlier. GI: No nausea. : No dysuria. NERVOUS SYSTEM: No numbness or weakness. ALLERGY/IMMUNOLOGY: No history of asthma. MUSCULOSKELETAL: As mentioned earlier. HEMATOLOGY/ONCOLOGY: No history of anemia. ENDOCRINE: As mentioned earlier. CONSTITUTIONAL: As mentioned earlier. DERMATOLOGY: Negative. RHEUMATOLOGY: Negative. PSYCHIATRY: As mentioned earlier. PHYSICAL EXAMINATION: Patient is alert and oriented x3. Pulse 69, blood pressure 113/75, respiration 20, temperature 97.5, pulse ox 99% on 2 L. HEENT: Conjunctivae normal. Oral mucosa moist. Neck is no jugular venous distention. No carotid bruit. No lymph node enlargement. CARDIOVASCULAR: S1, S2 muffled. An ejection systolic murmur. RESPIRATORY: Breath sounds diminished in the bases. A few scattered rhonchi and crackles. ABDOMEN: Soft, nontender. Legs: ntd. NERVOUS SYSTEM: Higher function as mentioned earlier. Moves all 4 limbs. LYMPHATICS: No lymphadenopathy of the neck, axillae or groin. SKIN: No ulcer, rash or bleeding. LAB STUDIES: CBC within normal limits. INR is 5 and creatinine is 1.11. ASSESSMENT: 1. Congestive heart failure acute exacerbation with acute on chronic systolic dysfunction with ejection fraction 35% to 40%. 2. Atrial tachycardia with varying block. 3. Chest pain, possible unstable angina. 4. Increased creatinine with chronic kidney disease stage 3. 5. Coumadin coagulopathy, mild. 6. Atrial fibrillation, history. 7. History of gastroesophageal reflux disease. 8. Cerebrovascular accident, transient ischemic attack. 9. Hypertension. 10.Hyperlipidemia. 11.Hypothyroidism. 12.History of syncope. 13.Seizure-like episodes. RECOMMENDATIONS AND DISCUSSION: In this 78-year-old woman who presented with multiple complex medical issues, we will monitor the patient closely. Continue the current medications. Continue symptomatic treatment. Resume the home medications and hold Coumadin for now. Otherwise, diuretics, repeat labs closely, 2D echo with Doppler, cardiology evaluation. Prognosis guarded because of multiple complex medical issues. Medications were ntd. Further recommendations to follow. MMODL / IJN: [id number] / TOMMIE
[2018-04-04 15:35] VITALS: BMI 32.4
[2018-04-04] MEDS ORDERED: WARFARIN 2.5 MG TAB PO SCH (18:00)
[2018-04-05] MEDS: PANTOPRAZOLE 40 MG TABLET PO SCH (06:22)
[2018-04-05 08:34] LABS: Anisocytosis Slight; Basophils % (A) 1 %; Eosinophils # (A) 0.2 k/uL (0-0.7); Eosinophils % (A) 3 %; HCT 43.1 % (34.0-46.0); HGB 12.9 gm/dL (11.4-16.0); Hypochromasia Slight; Lymphocytes # (A) 1.9 k/uL (1.0-4.8); Lymphocytes % (A) 25 %; MCH 28.7 pg (25.0-35.0); MCV 95.6 fL (80.0-100.0); Macrocytosis Slight; Mean Platelet Volume 8.2; Monocytes # (A) 0.5 k/uL (0-1.0); Monocytes % (A) 6 %; Neutrophils # (A) 4.8 k/uL (1.3-7.7); Neutrophils % (A) 62 %; Platelet Count 157 k/uL (150-450); RBC 4.51 m/uL (3.80-5.40); RDW 17.3 % (11.5-15.5); WBC 7.8 k/uL (3.8-10.6)
[2018-04-05 08:41] LABS: INR 2.1 (<1.2); Prothrombin Time 20.4 sec (9.0-12.0)
[2018-04-05] MEDS: FUROSEMIDE 10 MG/ML 4 ML VIAL IV SCH ×2 (08:42→20:21)
[2018-04-05] MEDS: ATORVASTATIN 40 MG TAB PO SCH (08:43)
[2018-04-05] MEDS: FAMOTIDINE 20 MG TAB PO SCH (08:43)
[2018-04-05] MEDS: METOPROLOL SUCCINATE (ER) 50 MG TAB.ER.24H PO SCH (08:43)
[2018-04-05] MEDS: NITROGLYCERIN OINT 1 INCH/GM PACKET TOPICAL SCH ×4 (08:43→22:15)
[2018-04-05] MEDS: ASPIRIN 325 MG TAB PO SCH (08:43)
[2018-04-05] MEDS: THYROID, PORK 30 MG TAB PO SCH (08:43)
[2018-04-05 08:45] LABS: Calcium 8.8 mg/dL (8.4-10.2)
--- NOTE | 2018-04-05 15:25 | P.PN ---
Subjective Progress Note Date: 04/05/18 This patient is seen for cardiac evaluation. Patient came to the hospital with the complaint of increasing shortness of breath for last 3-4 days patient has been having symptoms suggestive of orthopnea and PND. She also had some intermittent tightness in the chest. And does have a past history of atrial fibrillation. Patient has had a loop recorder placed in the past follows Dr. Carlos in the office. She did have a prior MARY and right-sided heart cath which revealed evidence of dilated cardio myopathy with an ejection fraction of 35-40%, patient has been on Coumadin for anticoagulation. In the emergency room she was found to be in congestive cardiac failure, overall her breathing has improved significantly. EKG was suggestive of atrial tachycardia with intermittent short bursts of rapid heartbeat. Patient had been on flecainide at home which was discontinued by Dr. Sunshine. We did speak with the patient regarding the new her anticoagulants, Coumadin was discontinued and Eliquis was initiated today. At this time patient continues to be on metoprolol. We will continue current dose of IV Lasix at this time. Start the patient on Entresto from tomorrow. INR today is 2.1, BUN 23 and creatinine 1.2. Objective - Vital Signs Vital signs: Vital Signs Temp 97.1 F L 04/05/18 12:00 Pulse 71 04/05/18 12:00 Resp 18 04/05/18 12:00 BP 125/74 04/05/18 12:00 Pulse Ox 98 04/05/18 12:00 Intake & Output 04/04/18 04/05/18 04/05/18 18:59 06:59 18:59 Intake Total 720 550 600 Output Total 350 Balance 370 550 600 Weight 75.4 kg 75 kg Intake: IV 40 .9 40 Oral 680 550 600 Output: Urine 350 Other: Voiding Method Toilet # Voids 2 # Bowel Movements 0 - Exam PHYSICAL EXAMINATION: GENERAL: 78-year-old female in no acute distress at the time of my examination HEENT: Head is atraumatic, normocephalic. Pupils equal, round. Sclera anicteric. Conjunctiva are clear. Mucous membranes of the mouth are moist. Neck is supple. There is no elevated jugular venous pressure. No carotid bruit is heard. HEART EXAMINATION: Heart S1 and S2 irregularly irregular systolic murmur heard CHEST EXAMINATION: And circumflex clear with diminished air entry to the bases ABDOMEN: Soft, nontender. Bowel sounds are heard. No organomegaly noted. EXTREMITIES: 2+ peripheral pulses with no evidence of peripheral edema and no calf tenderness noted. NEUROLOGIC patient is awake, alert and oriented 3 . . - Labs CBC & Chem 7: 04/05/18 07:15 04/05/18 07:15 Labs: Abnormal Lab Results - Last 24 Hours (Table) 04/05/18 04/05/18 04/05/18 Range/Units 07:15 07:15 07:15 MCHC 30.0 L (31.0-37.0) g/dL RDW 17.3 H (11.5-15.5) % PT 20.4 H (9.0-12.0) sec INR 2.1 H (<1.2) BUN 23 H (7-17) mg/dL Creatinine 1.27 H (0.52-1.04) mg/dL Assessment and Plan Plan: Assessment and plan #1 systolic congestive heart acute on chronic #2 paroxysmal atrial fibrillation #3 atrial tachycardia with variable block #4 hypertension #5 hyperlipidemia #6 hypothyroidism #7 prior TIA Plan We will continue current dose of IV Lasix. We will discontinue the Coumadin and start the patient on Eliquis 5 twice a day. We will also speak with Dr. Carlos tomorrow regarding the patient's atrial tachycardia. Continue to monitor intake and output along with daily weights and daily lytes BUN and creatinine. DNP note has been reviewed, I agree with a documented findings and plan of care. Patient was seen and examined.
--- NOTE | 2018-04-05 17:23 | ECHOF ---
Referral Reason:chf MEASUREMENTS -------- HEIGHT: 152.4 cm WEIGHT: 75.3 kg BP: 121/73 RVIDd: 2.8 cm (< 3.3) IVSd: 1.1 cm (0.6 - 1.1) LVIDd: 4.4 cm (3.9 - 5.3) LVPWd: 1.1 cm (0.6 - 1.1) IVSs: 1.5 cm LVIDs: 3.0 cm LVPWs: 1.9 cm LA Diam: 3.5 cm (2.7 - 3.8) LAESV Index (A-L): 35.45 ml/m Ao Diam: 3.0 cm (2.0 - 3.7) MV EXCURSION: 12.364 mm (> 18.000) MV EF SLOPE: 21 mm/s (70 - 150) EPSS: 1.3 cm AR PHT: 668 ms RAP: 15.00 mmHg RVSP: 53.94 mmHg FINDINGS -------- Undetermined rhythm. This was a technically difficult study with suboptimal views. The left ventricular size is normal. There is borderline concentric left ventricular hypertrophy. Overall left ventricular systolic function is moderate-severely impaired with, an EF between 30 - 35 %. The right ventricle is normal in size. LA is moderately dilated 34-39 ml/m2 The right atrium is normal in size. 5.0mg OF [place] UTLIZED: 2 OR MORE WALL SEGMENTS NOT VISUALIZED. There is mild aortic valve sclerosis. There is mild aortic regurgitation. The mitral valve leaflets are mildly thickened. Mild mitral annular calcification present. Mild m itral regurgitation is present. The peak and mean MV gradients are 13.56mmHg 2.55mmHg as measured by doppler. Mild tricuspid regurgitation present. There is moderate pulmonary hypertension. The right ventric ular systolic pressure, as measured by Doppler, is 53.94mmHg. Trace/mild (physiologic) pulmonic regurgitation. The aortic root size is normal. The inferior vena cava is dilated with no significant inspiratory collapse which is consistent estima lita right atrial pressure of >15 mmHg. There is no pericardial effusion. CONCLUSIONS -------- 1. Undetermined rhythm. 2. This was a technically difficult study with suboptimal views. 3. The left ventricular size is normal. 4. There is borderline concentric left ventricular hypertrophy. 5. The right ventricle is normal in size. 6. LA is moderately dilated 34-39 ml/m2 7. The right atrium is normal in size. 8. 5.0mg OF [place] UTLIZED: 2 OR MORE WALL SEGMENTS NOT VISUALIZED. 9. There is mild aortic valve sclerosis. 10. There is mild aortic regurgitation. 11. The mitral valve leaflets are mildly thickened. 12. Mild mitral annular calcification present. 13. Mild mitral regurgitation is present. 14. The peak and mean MV gradients are 13.56mmHg 2.55mmHg as measured by doppler. 15. Mild tricuspid regurgitation present. 16. There is moderate pulmonary hypertension. 17. The right ventricular systolic pressure, as measured by Doppler, is 53.94mmHg. 18. Trace/mild (physiologic) pulmonic regurgitation. 19. The aortic root size is normal. 20. The inferior vena cava is dilated with no significant inspiratory collapse which is consistent es timated right atrial pressure of >15 mmHg. 21. There is no pericardial effusion. EQUIPMENT VALIDATION SPECIALIST: Violet Mercado RDCS
[2018-04-05] MEDS: APIXABAN 5 MG TAB PO SCH (20:21)
[2018-04-06] MEDS: PANTOPRAZOLE 40 MG TABLET PO SCH (06:24)
[2018-04-06 06:46] LABS: Anisocytosis Slight; Basophils # (A) 0.1 k/uL (0-0.2); Basophils % (A) 1 %; Eosinophils # (A) 0.2 k/uL (0-0.7); Eosinophils % (A) 2 %; HCT 46.9 % (34.0-46.0); HGB 14.5 gm/dL (11.4-16.0); Lymphocytes # (A) 2.2 k/uL (1.0-4.8); Lymphocytes % (A) 21 %; MCH 28.5 pg (25.0-35.0); Mean Platelet Volume 7.9; Monocytes # (A) 0.6 k/uL (0-1.0); Monocytes % (A) 6 %; Neutrophils # (A) 6.8 k/uL (1.3-7.7); Neutrophils % (A) 66 %; Platelet Count 220 k/uL (150-450); RDW 17.2 % (11.5-15.5); WBC 10.3 k/uL (3.8-10.6)
[2018-04-06 06:50] LABS: INR 1.5 (<1.2); Prothrombin Time 15.3 sec (9.0-12.0)
[2018-04-06 06:53] LABS: Calcium 9.1 mg/dL (8.4-10.2); Potassium 4.1 mmol/L (3.5-5.1)
--- NOTE | 2018-04-06 07:11 | PN ---
PROGRESS NOTE DATE OF SERVICE: 04/05/2018 I am covering for Dr. Alves. This 78-year-old woman who was admitted with CHF acute exacerbation is closely monitored. Patient also had atrial tachycardia. No chest pain or palpitation. No fever. Cardiology following the patient closely. PHYSICAL EXAMINATION: On exam, alert and oriented x3. Pulse 79, blood pressure 124/75, respiration 18, temperature 97.5, pulse ox 97% on room air. HEENT: Conjunctivae normal. NECK: No jugular venous distention. CARDIOVASCULAR: S1, S2 muffled. RESPIRATORY: Breath sounds diminished at the bases. A few scattered rhonchi and crackles. Abdomen is soft, nontender. LEGS: No edema, no swelling. NERVOUS SYSTEM: No focal deficits. LABS: WBC 7.8, hemoglobin 12.9. Sodium 142, creatinine is 1.27. ASSESSMENT: 1. Congestive heart failure acute exacerbation with acute on chronic systolic dysfunction, ejection fraction 35% to 40%. 2. Atrial tachycardia with a varying block, present on admission. 3. Chest pain possible unstable angina. 4. Increased creatinine with chronic kidney disease stage III. 5. Coumadin coagulopathy, mild. 6. Atrial fibrillation history. 7. History of gastroesophageal reflux disease. 8. Cerebrovascular accident, transient ischemic attack. 9. Hypertension. 10.Hyperlipidemia. 11.Hypothyroidism. 12.History of syncope. 13.Seizure-like episodes. RECOMMENDATIONS AND DISCUSSION: Recommend to continue current medications. Continue with monitoring and symptomatic treatment. Closely follow with Cardiology. Diuretics, monitor fluid and electrolyte balance closely. Dr. Alves will follow. MMODL / IJN: [id number] /
--- NOTE | 2018-04-06 07:58 | P.PN ---
Subjective Progress Note Date: 04/06/18 Principal diagnosis: Exacerbation of CHF. This is a continue progress on a 78-year-old white female with history of atrial fibrillation with exacerbation of CHF. Medications are being adjusted. She's been transitioned Eliquis in and chest. The patient states no new complaints. She actually feels as though she is resting more comfortably than when she was admitted. No voiding difficulties. No significant nausea, vomiting or diarrhea is stated. Objective - Vital Signs Vital signs: Vital Signs Temp 97.8 F 04/06/18 04:00 Pulse 75 04/06/18 04:00 Resp 18 04/06/18 04:00 BP 120/76 04/06/18 04:00 Pulse Ox 95 04/06/18 04:00 Intake & Output 04/05/18 04/06/18 04/06/18 18:59 06:59 18:59 Intake Total 600 700 Balance 600 700 Weight 71 kg Intake: Oral 600 700 Other: Voiding Method Toilet # Voids 1 # Bowel Movements 0 - Constitutional General appearance: Present: average body habitus - EENT Eyes: Absent: abnormal pupil - Respiratory Respiratory: bilateral: CTA - Cardiovascular Rhythm: irregularly irregular Heart sounds: normal: S1, S2 Abnormal Heart Sounds: Absent: S3 Gallop - Gastrointestinal General gastrointestinal: Present: soft - Integumentary Integumentary: Absent: rash - Neurologic Neurologic: Present: CNII-XII intact - Psychiatric Psychiatric: Present: A&O x's 3, appropriate affect - Labs CBC & Chem 7: 04/06/18 06:10 04/06/18 06:10 Labs: Abnormal Lab Results - Last 24 Hours (Table) 04/05/18 04/05/18 04/05/18 Range/Units 07:15 07:15 07:15 Hct (34.0-46.0) % MCHC 30.0 L (31.0-37.0) g/dL RDW 17.3 H (11.5-15.5) % PT 20.4 H (9.0-12.0) sec INR 2.1 H (<1.2) BUN 23 H (7-17) mg/dL Creatinine 1.27 H (0.52-1.04) mg/dL Glucose (74-99) mg/dL 04/06/18 04/06/18 04/06/18 Range/Units 06:10 06:10 06:10 Hct 46.9 H (34.0-46.0) % MCHC (31.0-37.0) g/dL RDW 17.2 H (11.5-15.5) % PT 15.3 H (9.0-12.0) sec INR 1.5 H (<1.2) BUN 27 H (7-17) mg/dL Creatinine 1.30 H (0.52-1.04) mg/dL Glucose 119 H (74-99) mg/dL Assessment and Plan (1) Congestive heart failure (CHF) Current Visit: Yes Status: Acute Code(s): I50.9 - HEART FAILURE, UNSPECIFIED SNOMED Code(s): 90120181 (2) Hypertension Current Visit: No Status: Acute Code(s): I10 - ESSENTIAL (PRIMARY) HYPERTENSION SNOMED Code(s): 58251633 (3) Hypothyroidism (acquired) Current Visit: No Status: Acute Code(s): E03.9 - HYPOTHYROIDISM, UNSPECIFIED SNOMED Code(s): 944091765 Plan: Continue just medication. Check CMP in a.m. Despite discharge in 24-48 hours with her history and if she tolerates the new medication changes.
[2018-04-06] MEDS: METOPROLOL SUCCINATE (ER) 50 MG TAB.ER.24H PO SCH (09:12)
[2018-04-06] MEDS: APIXABAN 5 MG TAB PO SCH ×2 (09:12→19:38)
[2018-04-06] MEDS: THYROID, PORK 30 MG TAB PO SCH (09:12)
[2018-04-06] MEDS: FAMOTIDINE 20 MG TAB PO SCH (09:13)
[2018-04-06] MEDS: FUROSEMIDE 10 MG/ML 4 ML VIAL IV SCH (09:13)
[2018-04-06] MEDS: ATORVASTATIN 40 MG TAB PO SCH (09:13)
[2018-04-06] MEDS: NITROGLYCERIN OINT 1 INCH/GM PACKET TOPICAL SCH (09:57)
--- NOTE | 2018-04-06 10:57 | P.PN ---
Subjective Progress Note Date: 04/06/18 This patient is seen for cardiac evaluation. Patient came to the hospital with the complaint of increasing shortness of breath for last 3-4 days patient has been having symptoms suggestive of orthopnea and PND. She also had some intermittent tightness in the chest. And does have a past history of atrial fibrillation. Patient has had a loop recorder placed in the past follows Dr. Carlos in the office. She did have a prior MARY and right-sided heart cath which revealed evidence of dilated cardio myopathy with an ejection fraction of 35-40%, patient has been on Coumadin for anticoagulation. In the emergency room she was found to be in congestive cardiac failure, overall her breathing has improved significantly. EKG was suggestive of atrial tachycardia with intermittent short bursts of rapid heartbeat. Patient had been on flecainide at home which was discontinued by Dr. Sunshine. We did speak with the patient regarding the new her anticoagulants, Coumadin was discontinued and Eliquis was initiated today. At this time patient continues to be on metoprolol. We will continue current dose of IV Lasix at this time. Start the patient on Entresto from tomorrow. INR today is 2.1, BUN 23 and creatinine 1.2. 04/06/2018 Patient was seen and examined this morning, overall feeling significantly better. Breathing is stable. Blood pressure 120/70 with a heart rate in the 70s, 95% on room air. White blood cell count 10.3, hemoglobin 14.5, platelet count 220. Sodium 142, potassium 4.1, BUN 27 and creatinine 1.3. We will discontinue the IV Lasix today and national coverage specialist to oral diuretics. We will also resume the Cozaar. Objective - Vital Signs Vital signs: Vital Signs Temp 98 F 04/06/18 08:00 Pulse 80 04/06/18 08:00 Resp 16 04/06/18 08:00 BP 107/62 04/06/18 08:00 Pulse Ox 96 04/06/18 08:00 Intake & Output 04/05/18 04/06/18 04/06/18 18:59 06:59 18:59 Intake Total 600 700 240 Balance 600 700 240 Weight 71 kg Intake: Oral 600 700 240 Other: Voiding Method Toilet # Voids 1 # Bowel Movements 0 - Exam PHYSICAL EXAMINATION: GENERAL: 78-year-old female in no acute distress at the time of my examination HEENT: Head is atraumatic, normocephalic. Pupils equal, round. Sclera anicteric. Conjunctiva are clear. Mucous membranes of the mouth are moist. Neck is supple. There is no elevated jugular venous pressure. No carotid bruit is heard. HEART EXAMINATION: Heart S1 and S2 irregularly irregular systolic murmur heard CHEST EXAMINATION: Lungs are clear to auscultation ABDOMEN: Soft, nontender. Bowel sounds are heard. No organomegaly noted. EXTREMITIES: 2+ peripheral pulses with no evidence of peripheral edema and no calf tenderness noted. NEUROLOGIC patient is awake, alert and oriented 3 . . - Labs CBC & Chem 7: 04/06/18 06:10 04/06/18 06:10 Labs: Abnormal Lab Results - Last 24 Hours (Table) 04/06/18 04/06/18 04/06/18 Range/Units 06:10 06:10 06:10 Hct 46.9 H (34.0-46.0) % RDW 17.2 H (11.5-15.5) % PT 15.3 H (9.0-12.0) sec INR 1.5 H (<1.2) BUN 27 H (7-17) mg/dL Creatinine 1.30 H (0.52-1.04) mg/dL Glucose 119 H (74-99) mg/dL Assessment and Plan Plan: Assessment and plan #1 systolic congestive heart acute on chronic #2 paroxysmal atrial fibrillation #3 atrial tachycardia with variable block #4 hypertension #5 hyperlipidemia #6 hypothyroidism #7 prior TIA Plan We will discontinue the IV Lasix today and national coverage specialist to oral diuretics. We will also resume the patient's Cozaar. Patient may be discharged once cleared by primary. We will make her a follow-up appointment to see Dr. Wang in the office post discharge. DNP note has been reviewed, I agree with a documented findings and plan of care. Patient was seen and examined.
[2018-04-06 23:14] VITALS: RESP 20
[2018-04-07 07:03] VITALS: BP 124/69; PULSE 87; TEMP 97.7
[2018-04-07 07:03] LABS: INR 1.4 (<1.2); Prothrombin Time 14.3 sec (9.0-12.0)
[2018-04-07] MEDS: PANTOPRAZOLE 40 MG TABLET PO SCH (07:03)
[2018-04-07 07:14] LABS: Albumin 3.8 g/dL (3.5-5.0); Potassium 4.3 mmol/L (3.5-5.1); Total Bilirubin 1.3 mg/dL (0.2-1.3); Total Protein 7.5 g/dL (6.3-8.2)
[2018-04-07 07:54] LABS: Anisocytosis Slight; Basophils # (A) 0.1 k/uL (0-0.2); Basophils % (A) 1 %; Eosinophils # (A) 0.2 k/uL (0-0.7); Eosinophils % (A) 3 %; HCT 46.3 % (34.0-46.0); HGB 15.1 gm/dL (11.4-16.0); Lymphocytes # (A) 2.2 k/uL (1.0-4.8); Lymphocytes % (A) 23 %; MCHC 32.7 g/dL (31.0-37.0); MCV 91.7 fL (80.0-100.0); Monocytes # (A) 0.6 k/uL (0-1.0); Monocytes % (A) 7 %; Neutrophils % (A) 63 %; Platelet Count 150 k/uL (150-450); RBC 5.05 m/uL (3.80-5.40); RDW 16.6 % (11.5-15.5); WBC 9.4 k/uL (3.8-10.6)
--- NOTE | 2018-04-07 07:56 | P.DS ---
Providers Date of admission: 04/05/18 09:27 Attending physician: Franck Alves Consults: 04/03/18 20:07 Consult Physician Routine Consulting Provider: Anthony Joshi Consult Reason/Comments: Chest pain, CHF, chronic A. fib Do you want consulting provider notified?: Yes Primary care physician: Franck Alves - Discharge Diagnosis(es) (1) Congestive heart failure (CHF) Current Visit: Yes Status: Acute (2) Hypertension Current Visit: No Status: Acute (3) Hypothyroidism (acquired) Current Visit: No Status: Acute Hospital Course: This is discharge summary on a 78-year-old white female eion of congestive heart Failure. The patient was placed on appropriate transitional medication. Eliquis was started in lieu of Coumadin and cardiac medications were titrquite well and will be di-up with me in approximat one week. Patient Condition at Discharge: Stable Plan - Discharge Summary New Discharge Prescriptions: New Apixaban [Eliquis] 5 mg PO BID #60 tab Furosemide [Lasix] 40 mg PO DAILY #30 tab Losartan [Cozaar] 25 mg PO DAILY #30 tab rOPINIRole HCL [Requip] 0.25 mg PO HS #30 tab Discontinued Warfarin Sodium 2.5 mg PO SUMOWETHFRSA No Action Thyroid,Pork [[place] Thyroid] 90 mg PO DAILY Famotidine [Pepcid] 20 mg PO DAILY Losartan [Cozaar] 25 mg PO DAILY Flecainide [Tambocor] 50 mg PO Q12HR Atorvastatin [Lipitor] 40 mg PO DAILY Warfarin [Coumadin] 5 mg PO TU Metoprolol Succinate (ER) [Toprol Xl] 50 mg PO DAILY Discharge Medication List Famotidine [Pepcid] 20 mg PO DAILY 08/20/13 [History] Thyroid,Pork [[place] Thyroid] 90 mg PO DAILY 08/20/13 [History] Losartan [Cozaar] 25 mg PO DAILY 03/18/18 [History] Atorvastatin [Lipitor] 40 mg PO DAILY 04/03/18 [History] Flecainide [Tambocor] 50 mg PO Q12HR 04/03/18 [History] Metoprolol Succinate (ER) [Toprol Xl] 50 mg PO DAILY 04/03/18 [History] Warfarin [Coumadin] 5 mg PO TU 04/03/18 [History] Apixaban [Eliquis] 5 mg PO BID #60 tab 04/07/18 [Rx] Furosemide [Lasix] 40 mg PO DAILY #30 tab 04/07/18 [Rx] Losartan [Cozaar] 25 mg PO DAILY #30 tab 04/07/18 [Rx] rOPINIRole HCL [Requip] 0.25 mg PO HS #30 tab 04/07/18 [Rx] Follow up Appointment(s)/Referral(s): Tree Wang MD [STAFF PHYSICIAN] - 1 Week Franck Alves MD [Primary Care Provider] - 04/13/18 9:00 am (Friday)
[2018-04-07] MEDS: ATORVASTATIN 40 MG TAB PO SCH (08:36)
[2018-04-07] MEDS: THYROID, PORK 30 MG TAB PO SCH (08:36)
[2018-04-07] MEDS: FAMOTIDINE 20 MG TAB PO SCH (08:36)
[2018-04-07] MEDS: METOPROLOL SUCCINATE (ER) 50 MG TAB.ER.24H PO SCH (08:36)
[2018-04-07] MEDS: APIXABAN 5 MG TAB PO SCH (08:36)
[2018-04-07] MEDS ORDERED: LOSARTAN 25 MG TAB PO SCH (09:00)
[2018-04-07] MEDS ORDERED: FUROSEMIDE 40 MG TAB PO SCH (09:00)
[2018-04-07] MEDS ORDERED: WARFARIN 5 MG TAB PO SCH (18:00)
== END 2018-04-07 08:55 | disposition home or self-care (01) | DRG 291 ==
LOC: EC 17:50 → 3SCARD 20:05 → INTOOBSV 20:05 → OBSVTOIN 04-05 09:27
PROVIDERS: ADMIT Family Medicine; ATTEND Family Medicine
DX: I13.0 Hypertensive heart and chronic kidney disease with heart failure and stage 1 through stage 4 chronic kidney disease, or unspecified chronic kidney disease (principal); I50.23 Acute on chronic systolic (congestive) heart failure; I47.1 Supraventricular tachycardia; E89.0 Postprocedural hypothyroidism; E78.5 Hyperlipidemia, unspecified; I27.20 Pulmonary hypertension, unspecified; I42.0 Dilated cardiomyopathy; I48.2 Chronic atrial fibrillation; Z86.73 Personal history of transient ischemic attack (TIA), and cerebral infarction without residual deficits; K21.9 Gastro-esophageal reflux disease without esophagitis; N18.3 Chronic kidney disease, stage 3 (moderate); R79.1 Abnormal coagulation profile; T45.515A Adverse effect of anticoagulants, initial encounter; Z79.01 Long term (current) use of anticoagulants; Z79.899 Other long term (current) drug therapy; Z82.49 Family history of ischemic heart disease and other diseases of the circulatory system; Z83.3 Family history of diabetes mellitus; Z90.710 Acquired absence of both cervix and uterus; Z80.9 Family history of malignant neoplasm, unspecified; R56.9 Unspecified convulsions; Z98.42 Cataract extraction status, left eye; Z98.41 Cataract extraction status, right eye; Z79.890 Hormone replacement therapy; I20.0 Unstable angina
CPT/HCPCS: 36415; 71046; 74018; 80048; 80053; 81001; 82550; 82553; 83735; 83880; 84484; 85025; 85610; 85730; 93005; 93306; 96374; 99291

== ENCOUNTER 2018-08-03 06:07 | Day surgery (SDC) | payer MEDICARE ==
[2018-07-30 09:56] VITALS: BMI 29.7
[2018-08-03] MEDS ORDERED: ALPRAZolam 0.25 MG TAB PO PRN (06:41)
[2018-08-03] MEDS ORDERED: SODIUM CHLORIDE 0.9% 1,000 ML in EMPTY BAG 1 BAG IV ONE (06:41)
[2018-08-03] MEDS ORDERED: ALPRAZolam 0.5 MG TAB PO PRN (06:41)
[2018-08-03] MEDS ORDERED: NITROGLYCERIN SL TABS 0.4 MG TAB SUBLINGUAL PRN (06:41)
[2018-08-03] MEDS ORDERED: ASPIRIN 325 MG TAB PO STA (06:49)
[2018-08-03] MEDS ORDERED: ATORVASTATIN 80 MG TAB PO STA (06:50)
[2018-08-03 07:15] VITALS: PULSE 98; TEMP 97.7
[2018-08-03] MEDS ORDERED: fentaNYL (PF) 50 MCG/ML 2 ML AMP IV ONE (07:29)
[2018-08-03] MEDS ORDERED: IV FLUID CONTINUATION 900 ML IV ONE (07:29)
[2018-08-03] MEDS ORDERED: LIDOCAINE 1% INJ 10MG/ML (20 ML MDV) SQ ONE (07:33)
[2018-08-03] MEDS ORDERED: IOPAMIDOL-370 125ML BTL INJ ONE (07:43)
[2018-08-03] MEDS ORDERED: RX INFO: IV CONTRAST WAS GIVEN 1 EACH MISC MISCELLANE PRN (07:53)
[2018-08-03] MEDS ORDERED: SODIUM CHLORIDE 0.9% 1,000 ML IV SCH (08:00)
--- NOTE | 2018-08-03 08:17 | CC ---
CARDIAC CATHETERIZATION REPORT INDICATION: Cardiomyopathy. PROCEDURE NOTE: After obtaining informed consent, left heart catheterization and coronary angiogram were performed via the right femoral artery using standard Aretha catheters. Patient tolerated the procedure well without any obvious immediate complications. A femoral angiogram was performed and Angio-Seal was deployed for hemostasis. Patient received moderate conscious sedation. Total sedation time was 15 minutes. FINDINGS: HEMODYNAMICS: Left ventricular end-diastolic pressure is 12 to 14 mm. There is no significant gradient across the aortic valve. LEFT VENTRICULOGRAM: Left ventriculogram was not performed. ANGIOGRAPHIC DATA: LEFT MAIN CORONARY ARTERY: Left main coronary artery is a short vessel and is free of stenosis. Divides into left anterior descending coronary artery and circumflex coronary artery. LAD gives off a large caliber diagonal branch and after that tapers into a small vessel that does not quite reach the apex and this has remained unchanged compared to the angiograms done in 2014. Circumflex coronary artery is a large codominant vessel and is free of significant stenosis. Right coronary artery is a small caliber vessel but is free of significant disease. CONCLUSION: 1. Mild nonobstructive coronary artery disease. 2. Normal left ventricular end-diastolic pressures. PLAN: I reviewed angiographic data with the patient and told her that her cardiomyopathy is nonischemic in etiology and that she should resume the Eliquis post cath. MMODL / IJN: [id number] /
--- NOTE | 2018-08-03 08:23 | LTR ---
DATE OF SERVICE: 08/03/2017 RE: Beth Caballero Dear Franck; I performed cardiac catheterization on Beth Caballero. The detailed catheterization note is included in your records. In brief, the cardiac catheterization reveals mild nonobstructive coronary artery disease and the cardiomyopathy that the patient has is nonischemic in etiology. Thank you for giving me the privilege to participate with this pleasant lady. Sincerely, MD SANTO Ledezma / TIA: [id number] /
[2018-08-03 10:35] VITALS: RESP 18
[2018-08-03 13:45] VITALS: BP 128/59
== END 2018-08-03 13:35 | disposition home or self-care (01) ==
LOC: CATHCVL 06:07
PROVIDERS: ATTEND Internal Medicine Cardiovascular Disease
DX: I25.10 Atherosclerotic heart disease of native coronary artery without angina pectoris (principal); I48.1 Persistent atrial fibrillation; I11.0 Hypertensive heart disease with heart failure; I50.23 Acute on chronic systolic (congestive) heart failure; E78.5 Hyperlipidemia, unspecified; I48.0 Paroxysmal atrial fibrillation; I42.0 Dilated cardiomyopathy; Z79.899 Other long term (current) drug therapy; Z79.01 Long term (current) use of anticoagulants
CPT/HCPCS: 93458; C1760; C1894; C1769; J2001; J3010; Q9967

== ENCOUNTER → 2018-09-28 | Outpatient (CLI) | payer MEDICARE ==
[2018-09-28 08:38] LABS: HCT 34.2 % (34.0-46.0); HGB 10.5 gm/dL (11.4-16.0); Hypochromasia Moderate; MCHC 30.6 g/dL (31.0-37.0); MCV 88.3 fL (80.0-100.0); Mean Platelet Volume 8.3; Platelet Count 294 k/uL (150-450); RBC 3.87 m/uL (3.80-5.40); RDW 14.1 % (11.5-15.5); WBC 10.8 k/uL (3.8-10.6)
[2018-09-28 08:58] LABS: Potassium 4.9 mmol/L (3.5-5.1)
[2018-09-28 09:15] LABS: T4, Free (Free Thyroxine) 1.25 ng/dL (0.78-2.19)
== END | disposition home or self-care (01) ==
LOC: LABPAT 07:31
PROVIDERS: ATTEND Internal Medicine Clinical Cardiac Electrophysiology
DX: Z01.812 Encounter for preprocedural laboratory examination (principal)
CPT/HCPCS: 36415; 80051; 82565; 82947; 84439; 84443; 84481; 84520; 85027

== ENCOUNTER 2018-10-05 12:02 | Day surgery (SDC) | payer MEDICARE ==
[2018-09-29 14:44] VITALS: BMI 29.0
[2018-10-05] MEDS ORDERED: SODIUM CHLORIDE 0.9% 500 ML 500 ML IV ONE (12:27)
[2018-10-05] MEDS ORDERED: fentaNYL (PF) 50 MCG/ML 2 ML AMP ONE (13:17)
[2018-10-05] MEDS ORDERED: ceFAZolin IN SWFI 2 GM/20 ML SYRINGE IVP ONE (13:17)
[2018-10-05] MEDS ORDERED: PROPOFOL 10 MG/ML 20 ML VIAL IV ONE (13:17)
[2018-10-05] MEDS ORDERED: ceFAZolin 1,000 MG in SODIUM CHLORIDE 0.9% IRRIGATIO 250 ML IRRIGATION ONE (13:17)
[2018-10-05] MEDS ORDERED: MIDAZOLAM 2 MG/2 ML VIAL ONE (13:17)
[2018-10-05] MEDS ORDERED: diphenhydrAMINE 50 MG/ML 1 ML VIAL ONE (13:17)
[2018-10-05] MEDS ORDERED: IOPAMIDOL-250 50ML BTL IV ONE (13:34)
[2018-10-05] MEDS ORDERED: LIDOCAINE 1% INJ 10MG/ML (20 ML MDV) SQ ONE (14:01)
[2018-10-05] MEDS ORDERED: SODIUM CHLORIDE 0.9% 1,000 ML IV ONE (16:30)
[2018-10-05] MEDS ORDERED: LACTATED RINGERS 1,000 ML IV ONE (16:30)
[2018-10-05] MEDS ORDERED: ACETAMINOPHEN TAB 325 MG TAB PO PRN (18:20)
[2018-10-05] MEDS ORDERED: ACETAMINOPHEN IV (For NPO) 1,000 MG in EMPTY BAG 1 BAG IVPB ONE (18:20)
[2018-10-05] MEDS ORDERED: HYDROcodone/APAP 5-325MG 1 EACH TAB PO PRN (18:20)
[2018-10-05] MEDS: SODIUM CHLORIDE 0.9% 1,000 ML IV SCH ×2 (18:48)
[2018-10-05] MEDS: ceFAZolin IN SWFI 2 GM/20 ML SYRINGE IVP SCH (19:48)
[2018-10-05] MEDS: AMIODARONE 200 MG TAB PO SCH (19:48)
[2018-10-06] MEDS: ceFAZolin IN SWFI 2 GM/20 ML SYRINGE IVP SCH ×3 (00:51→13:34)
[2018-10-06 07:08] LABS: T4, Free (Free Thyroxine) 0.99 ng/dL (0.78-2.19)
[2018-10-06] MEDS: AMIODARONE 200 MG TAB PO SCH (07:52)
--- NOTE | 2018-10-06 08:05 | XR ---
EXAMINATION TYPE: XR chest 2V DATE OF EXAM: 10/06/2018 COMPARISON: 04/03/2018 HISTORY: Lead placement check TECHNIQUE: Frontal and lateral views of the chest are obtained. FINDINGS: Multilead left-sided cardiac device is seen. Prominence of the cardiac mediastinal silhoue tte is again noted. Cardiac loop recorder is seen. There is improved aeration of the lungs with minim al strand-like atelectasis in the infrahilar and retrocardiac regions. Minimal degenerative changes o f the spine. Pulmonary vascular congestion has improved and nearly resolved. Tracer pleural effusion has also nearly resolved. IMPRESSION: Nearly resolved interstitial pulmonary edema with minimal bibasilar atelectasis lynne nicholas
--- NOTE | 2018-10-06 08:25 | CE ---
CARDIAC ELECTROPHYSIOLOGY REPORT Beth Caballero is a 78-year-old female with nonischemic cardiomyopathy, likely tachycardia may be cardiomyopathy from atrial fibrillation with RVR despite a total of 150 mg of metoprolol succinate and heart failure medications. She has mild CAD. She has a fair LV dysfunction. She underwent a biventricular pacemaker implantation today prior to AV junction modification. Patient was brought to the physical laboratory assistant in a fasting state. Written informed consent was obtained prior to the procedure. The left pectoral area was prepped and draped as per protocol and 1% lidocaine was used for local anesthesia. A 4 cm incision was made parallel to the deltopectoral groove, about 1.5 cm medial to it. The incision was carried down to the level of pectoralis muscle. A subfascial pocket was made. Hemostasis was assured. The left axillary vein was accessed at 3 separate points under fluoroscopy and via appropriately-sized introducer sheaths 3 leads were positioned in the right heart. The atrial lead positioning was difficult and initially a tined lead was used. However, this lead was not stable and therefore a screw-in lead was used. This was a Medtronic model #5076, 52 cm length, serial number [id number]. The patient was in atrial fibrillation at the start of the study. Ten volt test was negative. Pacing impedance was 584 ohms. The RV lead was difficult to position in the apex. The tined lead was not stable and therefore a screw-in lead was used and positioned in the low RV septum. This was a Med[employer]onic model #5076, serial number [id number]. Pacing threshold 0.5 V at 0.5 milliseconds, pacing impedance of 570 ohms, R-waves 4 mV. Ten volt test was negative. The LV lead positioning was very difficult on account of the anatomy with tortuosity at the os of the coronary sinus as well as the tortuosity at the anterolateral LV vein as well as the posterolateral branch. First the coronary sinus was cannulated with some difficulty. This was on account of the tortuosity at the mouth of the coronary sinus. The Medtronic tined lead was positioned in the anterolateral vein. This vein was difficult to cannulate on account of its diminutive size and the tortuosity involved. This lead was positioned in a very stable position, but the thresholds were high all around and all along the lead. In addition, the vein was diminutive and would barely reach the mid LV. In addition once the stylet was withdrawn, the lead would retract back into the coronary sinus and therefore it was unstable. Hence, on account of the instability of the lead as well as very high thresholds in this vein. The lead was removed and this vein was not targeted for any further positioning. Two leads were used. A tined lead and a [employer] lead advisor was also used. Next the posterolateral vein was targeted. This vein was difficult to cannulate because of chest pain on the os of the coronary sinus and had its own tortuosity in addition to the tortuosity of the coronary sinus, multiple attempts, multiple sheaths multiple catheters, and wires were used for stability. Finally, the lead was positioned very distally in the vein close to the in the lateral LV. However, the thresholds were extremely high and capture was obtained only in 9 V. Multiple different tributaries were targeted, but finally it was seen that only the proximal portion of the veins had reasonably good thresholds and the distal portions and the diminutive tributaries off this posterolateral vein had very high thresholds as well as diaphragmatic stimulation. The leads were then finally positioned more proximally and the tip was tucked in one of the tributaries for stability. Once the sheath was removed, The lead was stable. While the intraoperative and pacing thresholds were high, postoperatively a was connected, the thresholds were much better. The LV3 to LV4 was 1 V at 1.5 milliseconds, pacing impedance of 623 ohms, R-waves 7 V. The best threshold was LV2 to the at 1.5 V at 1 millisecond. All 3 leads secured to the underlying pectoralis fascia using 2 nonabsorbable sutures. Pocket was irrigated with antibiotic solution. Leads were connected to the generator ([employer] BLOW MOLDING MACHINE TENDER-P, [id number] a biventricular pacemaker). This was implanted. The leads and the generator were placed in a subfascial pocket. The wound was closed in 3 layers and dressed per protocol. RESULT: 1. Successful biventricular pacemaker implantation. 2. The difficulties encountered as described above. This procedure took over 4 hours on account of the anatomy of the coronary sinus and the tributaries of the coronary sinus as well as the high thresholds within every single vein that was targeted. The patient tolerated the procedure well without any acute complications. PLAN: AV junction modification, but I will consider conversion to sinus rhythm also and hence an atrial lead was implanted for atrial pacing in the future. I will treat her with low-dose amiodarone. SANTO / TIA: [id number] /
[2018-10-06 08:31] VITALS: PULSE 96; RESP 16
[2018-10-06] MEDS ORDERED: LOSARTAN 25 MG TAB PO SCH (09:00)
[2018-10-06] MEDS ORDERED: THYROID, PORK 30 MG TAB PO SCH (09:00)
[2018-10-06] MEDS ORDERED: FAMOTIDINE 20 MG TAB PO SCH (09:00)
[2018-10-06] MEDS ORDERED: SPIRONOLACTONE 25 MG TAB PO SCH (09:00)
[2018-10-06] MEDS ORDERED: METOPROLOL SUCCINATE (ER) 100 MG TAB.ER.24H PO SCH (09:00)
[2018-10-06] MEDS ORDERED: PROBENECID 500 MG TAB PO SCH (09:00)
[2018-10-06] MEDS ORDERED: ATORVASTATIN 40 MG TAB PO SCH (09:00)
[2018-10-06] MEDS: SODIUM CHLORIDE 0.9% 1,000 ML IV SCH ×2 (09:28)
--- NOTE | 2018-10-06 10:27 | P.DS ---
Providers Attending physician: Tree Wang Consults: 10/05/18 18:23 Consult Physician Routine Consulting Provider: Franck Alves Consult Reason/Comments: hyperthyroid Do you want consulting provider notified?: Yes Primary care physician: Franck Alves Hospital Course: Patient is doing well. She has been ambulating around the room. She is slightly sore at the pacemaker site but otherwise she has no chest discomfort dizziness lightheadedness or palpitations on examination her vitals are stable and 97.4F, pulse rate in the 80s blood pressure 113/70 mmHg Heart sounds are irregular no murmurs or gallops. 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 She will also be cardioverted the same time to maintain sinus rhythm We will see her in the office within a week of discharge Plan - Discharge Summary Discharge Rx Participant: Yes New Discharge Prescriptions: No Action Thyroid,Pork [[place] Thyroid] 120 mg PO DAILY Famotidine [Pepcid] 20 mg PO DAILY Losartan [Cozaar] 25 mg PO DAILY Atorvastatin [Lipitor] 40 mg PO DAILY Apixaban [Eliquis] 5 mg PO BID #60 tab Spironolactone [Aldactone] 25 mg PO DAILY Probenecid [Benemid] 500 mg PO DAILY Metoprolol Succinate (ER) [Toprol Xl] 100 mg PO DAILY Discharge Medication List Famotidine [Pepcid] 20 mg PO DAILY 08/20/13 [History] Thyroid,Pork [[place] Thyroid] 120 mg PO DAILY 08/20/13 [History] Losartan [Cozaar] 25 mg PO DAILY 03/18/18 [History] Atorvastatin [Lipitor] 40 mg PO DAILY 04/03/18 [History] Apixaban [Eliquis] 5 mg PO BID #60 tab 04/07/18 [Rx] Metoprolol Succinate (ER) [Toprol Xl] 100 mg PO DAILY 07/30/18 [History] Probenecid [Benemid] 500 mg PO DAILY 07/30/18 [History] Spironolactone [Aldactone] 25 mg PO DAILY 07/30/18 [History]
[2018-10-06 12:37] VITALS: BP 95/61; TEMP 97.5
--- NOTE | 2018-10-06 13:13 | P.CONS ---
History of Present Illness - Reason for Consult Consult date: 10/06/18 - Chief Complaint Hyperthyroidism on labs. - History of Present Illness The patient is here essentially for pacemaker placement. She is now seen postoperatively after consultation because of slight hyperthyroidism. We will go ahead and decrease her Geraldine Thyroid 60 mg from 90 today. Review of Systems Constitutional: Denies chills, Denies fever Eyes: denies blurred vision, denies pain Ears, nose, mouth and throat: Denies headache, Denies sore throat Cardiovascular: Reports as per HPI, Reports palpitations, Denies edema, Denies shortness of breath Gastrointestinal: Denies abdominal pain, Denies diarrhea, Denies nausea, Denies vomiting Genitourinary: Denies dysuria, Denies hematuria Musculoskeletal: Denies myalgias Musculoskeletal: bilateral: ankle pain Integumentary: Denies pruritus, Denies rash Past Medical History Past Medical History: Atrial Fibrillation, CVA/TIA, GERD/Reflux, Hyperlipidemia, Hypertension, Thyroid Disorder Additional Past Medical History / Comment(s): SEIZURE LIKE EPISODES-can hear people but can't talk during-last time 3 months ago, SOB w/exertion History of Any Multi-Drug Resistant Organisms: None Reported Past Surgical History: Heart Catheterization, Hysterectomy Additional Past Surgical History / Comment(s): Partial thyroidectomy,. BILAT CATARACTS Past Anesthesia/Blood Transfusion Reactions: No Reported Reaction Smoking Status: Never smoker - Past Family History Mother Family Medical History: Congestive Heart Failure (CHF), Coronary Artery Disease (CAD), Diabetes Mellitus Sister(s) Family Medical History: Cancer, Coronary Artery Disease (CAD) Additional Family Medical History / Comment(s): x2 sisters Brother(s) Family Medical History: Cancer, Coronary Artery Disease (CAD) Medications and Allergies Home Medications Medication Instructions Recorded Confirmed Type Famotidine [Pepcid] 20 mg PO DAILY 08/20/13 09/29/18 History Losartan [Cozaar] 25 mg PO DAILY 03/18/18 09/29/18 History Atorvastatin [Lipitor] 40 mg PO DAILY 04/03/18 09/29/18 History Apixaban [Eliquis] 5 mg PO BID #60 tab 04/07/18 09/29/18 Rx Metoprolol Succinate (ER) [Toprol 100 mg PO DAILY 07/30/18 09/29/18 History XL] Probenecid [Benemid] 500 mg PO DAILY 07/30/18 09/29/18 History Spironolactone [Aldactone] 25 mg PO DAILY 07/30/18 09/29/18 History Amiodarone [Cordarone] 200 mg PO DAILY #90 tab 10/06/18 Rx Thyroid, Pork [Geraldine Thyroid] 60 mg PO DAILY #30 tab 10/06/18 Rx Allergies Allergy/AdvReac Type Severity Reaction Status Date / Time No Known Allergies Allergy Unverified 09/29/18 14:46 Physical Exam Vitals: Vital Signs Temp Pulse Resp BP Pulse Ox 10/06/18 12:00 97.5 F L 16 95/61 97 10/06/18 08:00 97.4 F L 96 16 106/69 100 10/06/18 04:00 97.9 F 88 15 113/70 94 L 10/06/18 03:15 15 10/06/18 00:55 97.9 F 67 15 106/71 98 10/05/18 23:40 18 10/05/18 21:30 117/58 10/05/18 20:30 110/78 10/05/18 20:00 18 112/74 10/05/18 19:30 105/64 10/05/18 19:15 110/70 10/05/18 19:00 108/67 10/05/18 18:45 80 18 110/49 100 Intake and Output 10/05/18 10/06/18 10/06/18 22:59 06:59 14:59 Intake Total 750 236 Balance 750 236 Intake: IV 750 Oral 236 Other: Voiding Method Toilet # Voids 1 1 Weight 67.585 kg - Constitutional General appearance: no acute distress - EENT Eyes: EOMI - Respiratory Respiratory: bilateral: CTA - Cardiovascular Rhythm: regular Heart sounds: normal: S1, S2 Abnormal Heart Sounds: no S3 Gallop - Gastrointestinal General gastrointestinal: soft, no tenderness - Musculoskeletal Musculoskeletal: no generalized weakness - Psychiatric Psychiatric: A&O x's 3, no appropriate affect Results Labs: Abnormal Lab Results - Last 24 Hours (Table) 10/06/18 Range/Units 05:45 TSH 0.103 L (0.465-4.680) mIU/L Assessment and Plan (1) Iatrogenic hyperthyroidism Current Visit: Yes Status: Acute Code(s): E05.80 - OTHER THYROTOXICOSIS WITHOUT THYROTOXIC CRISIS OR STORM SNOMED Code(s): 773777822 (2) Chest pain Current Visit: No Status: Acute Code(s): R07.9 - CHEST PAIN, UNSPECIFIED SNOMED Code(s): 33572038 (3) Chronic atrial fibrillation Current Visit: No Status: Acute Code(s): I48.2 - CHRONIC ATRIAL FIBRILLATION SNOMED Code(s): 647039492 Plan: Go ahead and decrease Geraldine Thyroid today. We'll recheck in 4-6 weeks. Otherwise, she'll DC'd once cleared by cardiology after her pacemaker placement. We'll continue to follow.
== END 2018-10-06 14:05 | disposition home or self-care (01) ==
LOC: CATHEP 12:02 → 1SOBS 18:11 → CATHEP 10-06 14:05
PROVIDERS: ATTEND Internal Medicine Clinical Cardiac Electrophysiology
DX: I42.0 Dilated cardiomyopathy (principal); I48.2 Chronic atrial fibrillation; I49.5 Sick sinus syndrome; Q24.5 Malformation of coronary vessels; R07.9 Chest pain, unspecified; I25.10 Atherosclerotic heart disease of native coronary artery without angina pectoris; I11.0 Hypertensive heart disease with heart failure; I50.22 Chronic systolic (congestive) heart failure; K21.9 Gastro-esophageal reflux disease without esophagitis; Z86.73 Personal history of transient ischemic attack (TIA), and cerebral infarction without residual deficits; I48.92 Unspecified atrial flutter; E05.90 Thyrotoxicosis, unspecified without thyrotoxic crisis or storm; E78.5 Hyperlipidemia, unspecified; Z79.890 Hormone replacement therapy; Z79.899 Other long term (current) drug therapy; Z79.01 Long term (current) use of anticoagulants
CPT/HCPCS: 33225; 33208; 84439; 84443; 71046; C1769 ×8; C1892; C1730; C1898 ×2; C1900 ×2; C2621; J2250; J1200; J0690 ×3; J2001; J3010; J2704; Q9966

== ENCOUNTER → 2018-11-18 | Outpatient (CLI) | payer MEDICARE ==
[2018-11-18 12:08] LABS: Potassium 5.1 mmol/L (3.5-5.1)
[2018-11-18 12:11] LABS: Anisocytosis Slight; HCT 39.8 % (34.0-46.0); HGB 12.8 gm/dL (11.4-16.0); MCH 29.2 pg (25.0-35.0); MCHC 32.2 g/dL (31.0-37.0); MCV 90.6 fL (80.0-100.0); Platelet Count 243 k/uL (150-450); RBC 4.39 m/uL (3.80-5.40); RDW 16.2 % (11.5-15.5); WBC 12.8 k/uL (3.8-10.6)
== END | disposition home or self-care (01) ==
LOC: LABPAT 10:51
PROVIDERS: ATTEND Internal Medicine Clinical Cardiac Electrophysiology
DX: Z01.812 Encounter for preprocedural laboratory examination (principal); I42.0 Dilated cardiomyopathy; I48.1 Persistent atrial fibrillation
CPT/HCPCS: 36415; 80051; 82565; 82947; 84520; 85027

== ENCOUNTER 2018-12-03 10:14 | Day surgery (SDC) | payer MEDICARE ==
[2018-11-25 08:52] VITALS: BMI 27.7
[~2018-12-03 10:14] MED LIST changes: +LACTATED RINGERS 1,000 ML IV SCH; -MIDAZOLAM 2 MG/2 ML VIAL IVP ONE; -MIDAZOLAM 2 MG/2 ML VIAL ONE; -SODIUM CHLORIDE 0.9% 250 ML IV ONE; -fentaNYL (PF) 50 MCG/ML 2 ML AMP IVP ONE; -fentaNYL (PF) 50 MCG/ML 2 ML AMP ONE
[2018-12-03 10:45] VITALS: TEMP 97.7
[2018-12-03] MEDS ORDERED: PROPOFOL 10 MG/ML 20 ML VIAL IV ONE (11:31)
[2018-12-03] MEDS ORDERED: LIDOCAINE 1% INJ 10MG/ML (20 ML MDV) ONE (11:31)
[2018-12-03] MEDS ORDERED: SODIUM CHLORIDE 0.9% 500 ML 500 ML IV ONE (11:36)
--- NOTE | 2018-12-03 12:30 | P.PCN ---
Preoperative Diagnosis: Diagnosis Atrial fibrillation with RVR, elevated LV lead thresholds, AV node modification deferred on account of this Patient brought in to evaluate LV lead position on account of elevated thresholds Awaiting electrical cardioversion, patient on amiodarone Procedure: Cinefluoroscopy of leads Atrial lead screw-in lead in stable position the right atrial appendage RV lead in RV apex, stable position LV lead in the posterior lateral vein but clear dislodgment of the LV lead in comparison to the original x-ray. LV post 1, 2 and 3 are in the posterior lateral vein. LV pole 1 is now in the same position that LV 4 was post initial procedure Pacemaker interrogation with reprogramming, biventricular Atrial pacing impedance 475 ohms, RV impedance 513 ohms LV impedance 570 ohms atrial pacing threshold 0.75 V at 0.4 ms RV pacing threshold 1 V at 0.4 ms Best LV pacing vector for the left ventricular lead: LV 1- Can @ 3 V at 1 ms P waves 1.5 mV post electrocardioversion R waves to 0.1 mV Prior to electrical cardioversion the pacemaker was reprogrammed to AAI mode since external defibrillator would not sense the R waves appropriately on account of the pacing spike Post electrical cardioversion pacemaker was reprogrammed AAIR-DDDR mode 50-130 LV lead was turned off on account of interaction/crosstalk in a biventricular pacemaker generator device Plan Reduce metoprolol to 100 mg by mouth daily, succinate Continue ELIQUIS Continue amiodarone 200 mg by mouth daily If the patient has a recurrence of atrial fibrillation, twelve-lead EKG in a backup pacing mode to confirm whether this is an atrial tachycardia atrial flutter Please note that when the patient came in today she was in an atrial tachycardia with 21 AV block with an atrial cycle length of about 280 ms
--- NOTE | 2018-12-03 12:36 | P.HPCAR ---
History of Present Illness This is Bernie Thomas PA-C dictating an H&P on this patient The patient was interviewed and examined by me as well as by Dr. Wang Case discussed with Dr. Wang and he agrees with the plan of care IMPRESSION / ASSESSMENT: Persistent symptomatic atrial fibrillation, in atrial tachycardia with RVR currently Status post biventricular pacemaker, elevated LV thresholds Systolic CHF, class II Dilated cardiomyopathy Hypertension Hypothyroidism, TSH low in September, PCP has adjusted her medications Dyslipidemia PLAN: Proceed with cardioversion cine fluoroscopy to assess leads Follow TSH level HPI Patient is a 78-year-old female with a past medical history of persistent atrial fibrillation, CHF, dilated cardiomyopathy, hypertension, hypothyroidism, and dyslipidemia who presented for electrical cardioversion. Patient has had persistent atrial fibrillation and was symptomatic with fatigue and shortness of breath. She had a biventricular pacemaker placed with the plan of doing an AV node ablation in the future but was found to have elevated LV thresholds. She is on amiodarone and remains in atrial fibrillation as was brought in for a cardioversion and lead check. Patient seen and examined resting comfortably in bed. Denies complaints of chest pain, shortness of breath, orthopnea, fevers, chills, recent infections. States she is ready to proceed with cardioversion. ROS: No fevers, chills or rigors, no cough, phlegm or expectoration, no nausea, vomiting or diarrhea, no hematuria, dysuria, no musculoskeletal complaints, no strokes or seizures, no skin lesions. EXAMINATION: Temperature 97.7F, pulse 109, respirations 20, blood pressure 134/84, oxygen saturation 100% Patient seen and examined laying in bed, in no acute distress Lungs clear to auscultation bilaterally Heart is regular, no murmurs appreciated No elevated JVD noted No lower extremity edema REVIEW OF LABS, ECG & MEDICAL DATA Telemetry revealed atrial tachycardia with RVR, cycle length 280 ms Most recent labs from October 2018 reviewed, WBC 12.8, hemoglobin 12.8, platelets 243, potassium 5.1, BUN 18, creatinine 1.19 TSH was low at 0.103 in September 2018, her PCP adjusted her thyroid medication Physical Exam Vitals: Vital Signs Temp Pulse Resp BP Pulse Ox 12/03/18 10:44 97.7 F 109 H 20 134/84 100 Intake and Output 12/02/18 12/03/18 12/03/18 22:59 06:59 14:59 Intake Total 100 Balance 100 Intake: IV 100 Other: Weight 64.41 kg Past Medical History Past Medical History: CVA/TIA, GERD/Reflux, Skin Disorder, Thyroid Disorder Additional Past Medical History / Comment(s): SEIZURE LIKE EPISODES-can hear people but can't talk during-last time 3 months ago, SOB w/exertion, See Dr Wang H&P, gout, rash on rt arm and left leg-cause unknown, History of Any Multi-Drug Resistant Organisms: None Reported Past Surgical History: Heart Catheterization, Hysterectomy, Pacemaker Additional Past Surgical History / Comment(s): Partial thyroidectomy,BILAT CATARACTS Past Anesthesia/Blood Transfusion Reactions: Previous Problems w/ Anesthesia Additional Past Anesthesia/Blood Transfusion Reaction / Comment(s): one time- anesthesia during oral surgery made heart race Type of Cardiac Device: Permanent Pacemaker Device Placement Date:: 09/2018 Smoking Status: Never smoker - Past Family History Mother Family Medical History: Congestive Heart Failure (CHF), Coronary Artery Disease (CAD), Diabetes Mellitus Sister(s) Family Medical History: Cancer Additional Family Medical History / Comment(s): . Brother(s) Family Medical History: Cancer Physical Examination Vital Signs Temp Pulse Resp BP Pulse Ox 12/03/18 10:44 97.7 F 109 H 20 134/84 100 Intake and Output 12/02/18 12/03/18 12/03/18 22:59 06:59 14:59 Intake Total 100 Balance 100 Intake: IV 100 Other: Weight 64.41 kg Results Current Medications Generic Name Dose Route Start Last Admin Trade Name Freq PRN Reason Stop Dose Admin Lactated Ringer's 1,000 mls @ 20 mls/hr 12/03/18 06:28 Lactated Ringers IV .Q24H BEAN Sodium Chloride 1,000 mls @ 20 mls/hr 12/03/18 06:28 Saline 0.9% IV .Q24H BEAN Intake and Output 12/02/18 12/03/18 12/03/18 22:59 06:59 14:59 Intake Total 100 Balance 100 Intake: IV 100 Other: Weight 64.41 kg Patient Weight 12/04/18 06:59 Weight 64.41 kg
--- NOTE | 2018-12-03 12:42 | P.PCN ---
Preoperative Diagnosis: Electrical cardioversion under anesthesia Indication: Persistent symptomatic atrial fibrillation Patient currently on amiodarone Procedure: Successful electrical cardioversion for atrial fibrillation with 360 Joules biphasic shock was used successfully to convert the patient to sinus rhythm. Device interrogation and reprogramming. Prior to the procedure the device was reprogrammed to AAI. After the procedure it was reprogrammed to AAIR-DDDR [id number] Postprocedure twelve-lead ECG: Sinus rhythm Plan: Continue amiodarone 200 mg by mouth daily, continue eliquis 5 mg twice a day, reduced dose of metoprolol to 100 mg daily Followup: follow up with Dr. Wang/Bernie Thomas/Aide Harley 2-3 weeks
[2018-12-03 13:13] VITALS: RESP 16
[2018-12-03 13:19] VITALS: PULSE 60
[2018-12-03 13:39] VITALS: BP 122/58
== END 2018-12-03 13:31 | disposition home or self-care (01) ==
LOC: CATHCVL 10:14
PROVIDERS: ATTEND Internal Medicine Clinical Cardiac Electrophysiology
DX: I48.1 Persistent atrial fibrillation (principal); I47.1 Supraventricular tachycardia; I11.0 Hypertensive heart disease with heart failure; I50.20 Unspecified systolic (congestive) heart failure; I42.0 Dilated cardiomyopathy; I49.5 Sick sinus syndrome; I44.7 Left bundle-branch block, unspecified; I27.20 Pulmonary hypertension, unspecified; E89.0 Postprocedural hypothyroidism; E78.5 Hyperlipidemia, unspecified; K21.9 Gastro-esophageal reflux disease without esophagitis; M10.9 Gout, unspecified; Z79.01 Long term (current) use of anticoagulants; Z79.890 Hormone replacement therapy; Z79.899 Other long term (current) drug therapy; Z90.710 Acquired absence of both cervix and uterus; Z98.42 Cataract extraction status, left eye; Z98.41 Cataract extraction status, right eye; Z95.0 Presence of cardiac pacemaker; Z86.73 Personal history of transient ischemic attack (TIA), and cerebral infarction without residual deficits; Z86.69 Personal history of other diseases of the nervous system and sense organs; Z82.49 Family history of ischemic heart disease and other diseases of the circulatory system; Z83.3 Family history of diabetes mellitus; Z80.9 Family history of malignant neoplasm, unspecified
CPT/HCPCS: 92960; 93286; J2001; J2704

== ENCOUNTER 2018-12-31 15:28 | Inpatient (IN) | payer MEDICARE ==
[2018-12-31] MEDS ORDERED: SODIUM CHLORIDE 0.9% 1,000 ML IV ONE (16:06)
[2018-12-31] MEDS: SODIUM CHLORIDE 0.9% 1,000 ML IV STA ×2 (16:18→17:01)
[2018-12-31 16:22] LABS: Anisocytosis Slight; Basophils # (A) 0.1 k/uL (0-0.2); Basophils % (A) 1 %; Eosinophils # (A) 0.1 k/uL (0-0.7); Eosinophils % (A) 1 %; HCT 43.5 % (34.0-46.0); HGB 13.7 gm/dL (11.4-16.0); Lymphocytes # (A) 2.3 k/uL (1.0-4.8); Lymphocytes % (A) 25 %; MCH 29.3 pg (25.0-35.0); MCHC 31.5 g/dL (31.0-37.0); Mean Platelet Volume 8.8; Monocytes # (A) 0.5 k/uL (0-1.0); Monocytes % (A) 5 %; Neutrophils # (A) 6.1 k/uL (1.3-7.7); Neutrophils % (A) 66 %; Platelet Count 246 k/uL (150-450); RBC 4.68 m/uL (3.80-5.40); WBC 9.2 k/uL (3.8-10.6)
[2018-12-31] MEDS ORDERED: DEXTROSE 5% IN WATER 100 ML with AMIODARONE 150 MG IV ONE (16:24)
[2018-12-31] MEDS ORDERED: AMIODARONE 360 MG in DEXTROSE 5% IN WATER 200 ML IV ONE ×2 (16:27)
[2018-12-31 16:31] LABS: INR 1.4 (<1.2); Prothrombin Time 14.2 sec (9.0-12.0)
[2018-12-31 16:38] LABS: Albumin 4.2 g/dL (3.5-5.0); Calcium 10.2 mg/dL (8.4-10.2); Magnesium 1.8 mg/dL (1.6-2.3); Potassium 5.4 mmol/L (3.5-5.1); Total Bilirubin 0.8 mg/dL (0.2-1.3); Total Protein 8.9 g/dL (6.3-8.2)
[2018-12-31] MEDS: METOPROLOL TARTRATE 5 MG/5 ML VIAL IVP SCH ×3 (16:40→16:57)
--- NOTE | 2018-12-31 17:39 | ED ---
General Adult HPI - General Chief complaint: Neuro Symptoms/Deficit Stated complaint: Numbness in face Time Seen by Provider: 12/31/18 16:08 Source: patient Mode of arrival: ambulatory Limitations: no limitations - History of Present Illness Initial comments: Dictation was produced using [employer] dictation software. please excuse any gra mmatical, word or spelling errors. Chief Complaint: 78-year-old female presents with generalized weakness and dyspnea since yesterday. History of Present Illness: Patient is 78-year-old female she presents today with her family members. Patient has history of atrial fibrillation, CVA, thyroid disease. Patient has extensive history of atrial fibrillation and sees rn invasive Dr. Peña. Patient takes L Alexis, metoprolol and amiodarone for her usual cardiac medications. According to family patient has been generally weak especially worse over the last 1-2 hours. Patient reports that she has been feeling weak for the last 1-2 days. Patient has been having really poor intake recently. She hasn't really been drinking fluids or eating. Patient weighs of some nausea and dry heaving. No diarrhea. Patient denies any pain complaints at this time. Patient has extensive history of headaches. She's been seen by 3 different neurologists with no clear reason for why patient has these frequent headaches. The ROS documented in this emergency department record has been reviewed and confirmed by me. Those systems with pertinent positive or negative responses have been documented in the HPI. All other systems are other negative and/or noncontributory. PHYSICAL EXAM: General Impression: Alert and oriented x3, lethargic, pale HEENT: Normocephalic atraumatic, extra-ocular movements intact, pupils equal and reactive to light bilaterally, dry mucous membranes Cardiovascular: Tachycardic Chest: Diffuse rales Abdomen: Bowel sounds present, abdomen soft, non-tender, non-distended, no organomegaly Musculoskeletal: Pulses present and equal in all extremities, no peripheral edema Motor: no focal deficits noted Neurological: CN II-XII grossly intact, no focal motor or sensory deficits noted Skin: Intact with no visualized rashes ED course: 78-year-old female with extensive cardiac history and biventricular pacemaker presents with chief complaint of generalized weakness. Vital signs upon arrival shows heart rate of 131. First blood pressure 133/83. Patient was evaluated resuscitation bay initially. Patient appeared to have what could be interpreted as ventricular tachycardia on the monitor. EKG was performed immediately given that she had normal blood pressure and was alert and oriented. EKG initially showed ventricular paced rhythm with a rate of 133. Magnesium was placed over patient's pacemaker with repeat EKG showing AV dual paced rhythm with a rate of 89. This is compared to old EKG showing A. fib with a rate of 120. Discussed patient case with cardiology Dr. Coffey immediately who recommended giving some patient Lopressor for rate control. Patient was given a total of 7.5 mg of Lopressor and 2.5 mg aliquots. With improvement of heart rate into the 1 teens. Patient is pacemaker was interrogated and discussed with cardiology Dr. Coffey. Vital signs labs were resulted. CBC is unremarkable. Coag panel shows an of 1.4. Patient is unable course. Metabolic panel shows potassium 5.4, acidosis of 15 with a gap of 17. Elevated creatinine 2.03 and a BUN of 38. Glucose is 140. Patient is elevated troponin of 0.081. Patient is given some Lopressor. After several minutes patient's blood pressure began to slowly decline. Patient was given glucagon rapidly with improvement of pressure. More history was obtained from family member. They report that she took 3 days worth of medications recently. While labs were obtained. Patient's lactic acidosis of 3.0 with a prematurity peptide of 23,200. Patient covered with broad-spectrum antibiotics. Pending blood cultures and urine cultures. Central line was placed and the right IJ. Patient tolerated procedure well. Discussed patient case with Dr. Anastasiia Hernandez who is willing to accept patient to the intensive care unit. He however once is to order an arterial blood gas to determine the need for possible rapid sequence intubation. ABG was performed using ultrasound guidance. ABG shows pH of 7.354 with a pCO2 of 21.9 and bicarb of 12.2. Base excess of -13.3. EKG interpretation: Ventricular rate 126, ventricular paced rhythm, QS 180, QTc 640. - Related Data Home Medications Medication Instructions Recorded Confirmed Famotidine [Pepcid] 20 mg PO DAILY 08/20/13 12/31/18 Atorvastatin [Lipitor] 40 mg PO HS 04/03/18 12/31/18 Probenecid [Benemid] 500 mg PO DAILY 07/30/18 12/31/18 Spironolactone [Aldactone] 25 mg PO DAILY 07/30/18 12/31/18 Thyroid, Pork [H[place]inson Thyroid] 120 mg PO DAILY 12/03/18 12/31/18 Losartan Potassium [Cozaar] 25 mg PO DAILY 12/31/18 12/31/18 Previous Rx's Medication Instructions Recorded Apixaban [Eliquis] 5 mg PO BID #60 tab 04/07/18 Amiodarone [Cordarone] 200 mg PO DAILY #90 tab 10/06/18 Metoprolol Succinate (ER) [Toprol 100 mg PO DAILY #12 tab 12/03/18 XL] Allergies Allergy/AdvReac Type Severity Reaction Status Date / Time No Known Allergies Allergy Verified 12/31/18 17:07 Review of Systems ROS Statement: Those systems with pertinent positive or pertinent negative responses have been documented in the HPI. ROS Other: All systems not noted in ROS Statement are negative. Past Medical History Past Medical History: CVA/TIA, GERD/Reflux, Skin Disorder, Thyroid Disorder Additional Past Medical History / Comment(s): SEIZURE LIKE EPISODES-can hear people but can't talk during-last time 3 months ago, SOB w/exertion, See Dr Wang H&P, gout, rash on rt arm and left leg-cause unknown, History of Any Multi-Drug Resistant Organisms: None Reported Past Surgical History: Heart Catheterization, Hysterectomy, Pacemaker Additional Past Surgical History / Comment(s): Partial thyroidectomy,BILAT CATARACTS Past Anesthesia/Blood Transfusion Reactions: Previous Problems w/ Anesthesia Additional Past Anesthesia/Blood Transfusion Reaction / Comment(s): one time- anesthesia during oral surgery made heart race Type of Cardiac Device: Permanent Pacemaker Device Placement Date:: 09/2018 Past Psychological History: No Psychological Hx Reported Smoking Status: Never smoker Past Alcohol Use History: None Reported Past Drug Use History: None Reported - Past Family History Mother Family Medical History: Congestive Heart Failure (CHF), Coronary Artery Disease (CAD), Diabetes Mellitus Sister(s) Family Medical History: Cancer Additional Family Medical History / Comment(s): . Brother(s) Family Medical History: Cancer General Exam Limitations: no limitations Course Vital Signs 12/31/18 12/31/18 12/31/18 15:33 15:45 16:02 Temperature 97.9 F Pulse Rate 131 H 129 H 125 H Respiratory 24 18 18 Rate Blood Pressure 133/83 130/89 126/94 O2 Sat by Pulse 99 97 100 Oximetry 12/31/18 12/31/18 12/31/18 16:16 16:39 16:50 Temperature Pulse Rate 121 H 129 H 120 H Respiratory 16 17 18 Rate Blood Pressure 112/85 123/92 109/84 O2 Sat by Pulse 100 Oximetry 12/31/18 12/31/18 12/31/18 16:55 17:01 17:36 Temperature Pulse Rate 118 H 118 H 121 H Respiratory 18 17 18 Rate Blood Pressure 116/65 110/93 127/95 O2 Sat by Pulse 100 100 98 Oximetry 12/31/18 12/31/18 12/31/18 17:40 17:45 17:54 Temperature Pulse Rate 117 H 116 H 116 H Respiratory 18 18 18 Rate Blood Pressure 85/63 100/85 71/49 O2 Sat by Pulse 95 95 95 Oximetry 12/31/18 12/31/18 12/31/18 18:00 18:10 18:28 Temperature Pulse Rate 113 H 113 H 115 H Respiratory 18 18 18 Rate Blood Pressure 123/75 106/78 117/65 O2 Sat by Pulse 100 98 100 Oximetry Procedures - Central Line Placement Right IJ Consent Obtained: verbal consent, written consent Patient Placed on Monitor/Pulse Ox: Yes Prep: mask, gown, gloves Central Line Prep: Povidone-Iodine 1%, Chlorhexidine scrub, sterile drapes applied Local Anesthesia Used: Lidocaine 1%, with Epi Ultrasound Used for Placement: Yes Central Line Lumen Inserted: triple Bloods Obtained for Lab: No Central Line Position: good blood return, all ports aspirated, flushed, capped, sutured in place with 3-0 nylon Dressing Applied: Tegaderm Post Procedure X-Ray: tip of catheter in good position Patient Tolerated Procedure: well Complications: none Medical Decision Making - Lab Data Result diagrams: 12/31/18 15:55 12/31/18 15:55 Lab Results 12/31/18 12/31/18 12/31/18 Range/Units 15:55 15:55 15:55 WBC 9.2 (3.8-10.6) k/uL RBC 4.68 (3.80-5.40) m/uL Hgb 13.7 (11.4-16.0) gm/dL Hct 43.5 (34.0-46.0) % MCV 93.0 (80.0-100.0) fL MCH 29.3 (25.0-35.0) pg MCHC 31.5 (31.0-37.0) g/dL RDW 16.0 H (11.5-15.5) % Plt Count 246 (150-450) k/uL Neutrophils % 66 % Lymphocytes % 25 % Monocytes % 5 % Eosinophils % 1 % Basophils % 1 % Neutrophils # 6.1 (1.3-7.7) k/uL Lymphocytes # 2.3 (1.0-4.8) k/uL Monocytes # 0.5 (0-1.0) k/uL Eosinophils # 0.1 (0-0.7) k/uL Basophils # 0.1 (0-0.2) k/uL Anisocytosis Slight PT 14.2 H (9.0-12.0) sec INR 1.4 H (<1.2) APTT 35.0 H (22.0-30.0) sec Sample Site ABG pH (7.35-7.45) ABG pCO2 (35-45) mmHg ABG pO2 (83-108) mmHg ABG HCO3 (21-25) mmol/L ABG Total CO2 (19-24) mmol/L ABG O2 Saturation (94-97) % ABG Base Excess mmol/L Enrike Test FiO2 % Sodium 137 (137-145) mmol/L Potassium 5.4 H (3.5-5.1) mmol/L Chloride 105 (98-107) mmol/L Carbon Dioxide 15 L (22-30) mmol/L Anion Gap 17 mmol/L BUN 38 H (7-17) mg/dL Creatinine 2.03 H (0.52-1.04) mg/dL Est GFR (CKD-EPI)AfAm 26 (>60 ml/min/1.73 sqM) Est GFR (CKD-EPI)NonAf 23 (>60 ml/min/1.73 sqM) Glucose 140 H (74-99) mg/dL Plasma Lactic Acid Herb (0.7-2.0) mmol/L Calcium 10.2 (8.4-10.2) mg/dL Magnesium 1.8 (1.6-2.3) mg/dL Total Bilirubin 0.8 (0.2-1.3) mg/dL AST 30 (14-36) U/L ALT 10 (9-52) U/L Alkaline Phosphatase 159 H (38-126) U/L Troponin I (0.000-0.034) ng/mL NT-Pro-B Natriuret Pep pg/mL Total Protein 8.9 H (6.3-8.2) g/dL Albumin 4.2 (3.5-5.0) g/dL TSH 2.930 (0.465-4.680) mIU/L Urine Color Urine Appearance (Clear) Urine pH (5.0-8.0) Ur Specific D[place]el (1.001-1.035) Urine Protein (Negative) Urine Glucose (UA) (Negative) Urine Ketones (Negative) Urine Blood (Negative) Urine Nitrite (Negative) Urine Bilirubin (Negative) Urine Urobilinogen (<2.0) mg/dL Ur Leukocyte Esterase (Negative) Urine RBC (0-5) /hpf Urine WBC (0-5) /hpf Ur Squamous Epith Cells (0-4) /hpf Amorphous Sediment (None) /hpf Urine Bacteria (None) /hpf Hyaline Casts (0-2) /lpf Urine Mucus (None) /hpf 12/31/18 12/31/18 12/31/18 Range/Units 15:55 15:55 15:55 WBC (3.8-10.6) k/uL RBC (3.80-5.40) m/uL Hgb (11.4-16.0) gm/dL Hct (34.0-46.0) % MCV (80.0-100.0) fL MCH (25.0-35.0) pg MCHC (31.0-37.0) g/dL RDW (11.5-15.5) % Plt Count (150-450) k/uL Neutrophils % % Lymphocytes % % Monocytes % % Eosinophils % % Basophils % % Neutrophils # (1.3-7.7) k/uL Lymphocytes # (1.0-4.8) k/uL Monocytes # (0-1.0) k/uL Eosinophils # (0-0.7) k/uL Basophils # (0-0.2) k/uL Anisocytosis PT (9.0-12.0) sec INR (<1.2) APTT (22.0-30.0) sec Sample Site ABG pH (7.35-7.45) ABG pCO2 (35-45) mmHg ABG pO2 (83-108) mmHg ABG HCO3 (21-25) mmol/L ABG Total CO2 (19-24) mmol/L ABG O2 Saturation (94-97) % ABG Base Excess mmol/L Enrike Test FiO2 % Sodium (137-145) mmol/L Potassium (3.5-5.1) mmol/L Chloride (98-107) mmol/L Carbon Dioxide (22-30) mmol/L Anion Gap mmol/L BUN (7-17) mg/dL Creatinine (0.52-1.04) mg/dL Est GFR (CKD-EPI)AfAm (>60 ml/min/1.73 sqM) Est GFR (CKD-EPI)NonAf (>60 ml/min/1.73 sqM) Glucose (74-99) mg/dL Plasma Lactic Acid Herb 3.0 H* (0.7-2.0) mmol/L Calcium (8.4-10.2) mg/dL Magnesium (1.6-2.3) mg/dL Total Bilirubin (0.2-1.3) mg/dL AST (14-36) U/L ALT (9-52) U/L Alkaline Phosphatase (38-126) U/L Troponin I 0.081 H* (0.000-0.034) ng/mL NT-Pro-B Natriuret Pep 40774 pg/mL Total Protein (6.3-8.2) g/dL Albumin (3.5-5.0) g/dL TSH (0.465-4.680) mIU/L Urine Color Urine Appearance (Clear) Urine pH (5.0-8.0) Ur Specific D[place]el (1.001-1.035) Urine Protein (Negative) Urine Glucose (UA) (Negative) Urine Ketones (Negative) Urine Blood (Negative) Urine Nitrite (Negative) Urine Bilirubin (Negative) Urine Urobilinogen (<2.0) mg/dL Ur Leukocyte Esterase (Negative) Urine RBC (0-5) /hpf Urine WBC (0-5) /hpf Ur Squamous Epith Cells (0-4) /hpf Amorphous Sediment (None) /hpf Urine Bacteria (None) /hpf Hyaline Casts (0-2) /lpf Urine Mucus (None) /hpf 10/03/19 10/03/19 Range/Units 18:30 19:24 WBC (3.8-10.6) k/uL RBC (3.80-5.40) m/uL Hgb (11.4-16.0) gm/dL Hct (34.0-46.0) % MCV (80.0-100.0) fL MCH (25.0-35.0) pg MCHC (31.0-37.0) g/dL RDW (11.5-15.5) % Plt Count (150-450) k/uL Neutrophils % % Lymphocytes % % Monocytes % % Eosinophils % % Basophils % % Neutrophils # (1.3-7.7) k/uL Lymphocytes # (1.0-4.8) k/uL Monocytes # (0-1.0) k/uL Eosinophils # (0-0.7) k/uL Basophils # (0-0.2) k/uL Anisocytosis PT (9.0-12.0) sec INR (<1.2) APTT (22.0-30.0) sec Sample Site rrad ABG pH 7.35 (7.35-7.45) ABG pCO2 22 L (35-45) mmHg ABG pO2 89 (83-108) mmHg ABG HCO3 12 L (21-25) mmol/L ABG Total CO2 13 L (19-24) mmol/L ABG O2 Saturation 96.0 (94-97) % ABG Base Excess -13.3 mmol/L Enrike Test Yes FiO2 32 % Sodium (137-145) mmol/L Potassium (3.5-5.1) mmol/L Chloride (98-107) mmol/L Carbon Dioxide (22-30) mmol/L Anion Gap mmol/L BUN (7-17) mg/dL Creatinine (0.52-1.04) mg/dL Est GFR (CKD-EPI)AfAm (>60 ml/min/1.73 sqM) Est GFR (CKD-EPI)NonAf (>60 ml/min/1.73 sqM) Glucose (74-99) mg/dL Plasma Lactic Acid Herb (0.7-2.0) mmol/L Calcium (8.4-10.2) mg/dL Magnesium (1.6-2.3) mg/dL Total Bilirubin (0.2-1.3) mg/dL AST (14-36) U/L ALT (9-52) U/L Alkaline Phosphatase (38-126) U/L Troponin I (0.000-0.034) ng/mL NT-Pro-B Natriuret Pep pg/mL Total Protein (6.3-8.2) g/dL Albumin (3.5-5.0) g/dL TSH (0.465-4.680) mIU/L Urine Color Yellow Urine Appearance Clear (Clear) Urine pH 5.5 (5.0-8.0) Ur Specific D[place]el 1.016 (1.001-1.035) Urine Protein Trace H (Negative) Urine Glucose (UA) Negative (Negative) Urine Ketones Negative (Negative) Urine Blood Negative (Negative) Urine Nitrite Negative (Negative) Urine Bilirubin Negative (Negative) Urine Urobilinogen <2.0 (<2.0) mg/dL Ur Leukocyte Esterase Moderate H (Negative) Urine RBC 1 (0-5) /hpf Urine WBC 7 H (0-5) /hpf Ur Squamous Epith Cells 5 H (0-4) /hpf Amorphous Sediment Rare H (None) /hpf Urine Bacteria Rare H (None) /hpf Hyaline Casts 11 H (0-2) /lpf Urine Mucus Rare H (None) /hpf Critical Care Time Critical Care Time: Yes Total Critical Care Time: 47 Disposition Clinical Impression: Generalized weakness, Hypotension, Heart failure Disposition: ADMITTED IP TO THIS [facility] Condition: Critical Referrals: Franck Alves MD [Primary Care Provider] - 1-2 days Decision Time: 19:08
[2018-12-31] MEDS ORDERED: GLUCAGON 1 MG/ML VIAL IVP STA (17:45)
[2018-12-31] MEDS ORDERED: CEFEPIME 2 GM in SODIUM CHLORIDE 0.9% 100 ML IVPB STA (18:27)
[2018-12-31] MEDS ORDERED: VANCOMYCIN IV PER PHARMACY 1 EACH MISC MISCELLANE PRN (18:27)
--- NOTE | 2018-12-31 18:41 | XR ---
EXAM: XR Chest, 1 View CLINICAL HISTORY: ITS.REASON XR Reason: dysrhythmia TECHNIQUE: Frontal view of the chest. COMPARISON: Chest radiograph on 10/06/2018 FINDINGS: Hardware: Loop recorder again projected over the left chest. Lungs/pleura: Bibasilar opacities may represent atelectasis. No focal consolidation. No pleural effusion or pneumothorax. Possible mild pulmonary vasculature congestion. Heart/mediastinum: Stable mild enlargement of the cardiac silhouette. Left-sided pacemaker. Soft tissues: Unremarkable. Bones: No acute fracture. Degenerative changes of the acromioclavicular joints and spine. Upper abdomen: Normal. IMPRESSION: Bibasilar opacities likely represent atelectasis versus scarring. Possible mild pulmonary vasculature congestion.
[2018-12-31] MEDS ORDERED: VANCOMYCIN 1,250 MG in SODIUM CHLORIDE 0.9% 250 ML IVPB ONE (18:45)
[2018-12-31 19:04] LABS: Amorphous Sediment,Urine Rare /hpf; Appearance,Urine Clear (Clear); Bacteria,Urine Rare /hpf; Bilirubin,Urine Negative (Negative); Blood,Urine Negative (Negative); Color,Urine Yellow; Glucose,Urine (UA) Negative (Negative); Hyaline Casts,Urine 11 /lpf (0-2); Ketones,Urine Negative (Negative); Leukocyte Esterase,Urine Moderate (Negative); Mucus,Urine Rare /hpf; Nitrite,Urine Negative (Negative); PH, Urine 5.5 (5.0-8.0); Protein,Urine Trace (Negative); RBC,Urine 1 /hpf (0-5); Specific Gravity,Urine 1.016 (1.001-1.035); Squamous Epithelial Cell,Urine 5 /hpf (0-4); Urobilinogen,Urine <2.0 mg/dL (<2.0); WBC,Urine 7 /hpf (0-5)
--- NOTE | 2018-12-31 19:18 | XR ---
EXAM: XR Chest, 1 View CLINICAL HISTORY: ITS.REASON XR Reason: central line placement verification TECHNIQUE: Frontal view of the chest. COMPARISON: Chest radiograph on 12/31/2018 at 1628 hrs. FINDINGS: Hardware: Interval placement of a right internal jugular central venous catheter which terminates in the region of the SVC. Lungs/pleura: Increased prominence of the lung markings and interstitial opacities which pulmonary vasculature congestion. Bibasilar opacities likely represent atelectasis. No pleural effusion or pneumothorax. Heart/mediastinum: Stable mild enlargement of the cardiac silhouette. Left-sided pacemaker. Atherosclerotic calcifications of the aorta. Probable loop recorder projected over the heart. Soft tissues: Unremarkable. Bones: No acute fracture. Upper abdomen: Normal. IMPRESSION: 1. Interval placement of a right internal jugular central venous catheter which terminates in the region of the SVC. 2. Increased prominence of the lung markings and interstitial opacities which pulmonary vasculature congestion. Bibasilar opacities likely represent atelectasis.
[2018-12-31 19:26] LABS: ABG Base Excess -13.3 mmol/L; ABG HCO3 12 mmol/L (21-25); ABG PCO2 22 mmHg (35-45); ABG PH 7.35 (7.35-7.45); ABG PO2 89 mmHg (83-108); ABG TCO2 13 mmol/L (19-24); Allen Test Performed? Yes
[2018-12-31] MEDS ORDERED: NALOXONE 0.4 MG/ML 1 ML VIAL IV PRN (19:26)
[2018-12-31] MEDS ORDERED: SODIUM CHLORIDE 0.9% 1,000 ML IV SCH (19:30)
[2018-12-31 20:47] LABS: Glucose,Whole Blood 128 mg/dL (75-99)
[2018-12-31] MEDS: DEXTROSE 5% IN WATER 1,000 ML with SODIUM BICARB (1 MEQ/ML) 150 ML IV SCH (22:27)
[2018-12-31] MEDS ORDERED: AMIODARONE 300 MG in DEXTROSE 5% IN WATER 250 ML IV SCH ×2 (22:30)
[2018-12-31] MEDS: APIXABAN 5 MG TAB PO SCH (22:58)
[2018-12-31] MEDS: ALPRAZolam 0.5 MG TAB PO PRN (22:58)
[2018-12-31 23:20] VITALS: BMI 28.0
[2019-01-01 02:21] LABS: ABG Base Excess -10.6 mmol/L; ABG HCO3 15 mmol/L (21-25); ABG Oxygen Saturation 91.8 % (94-97); ABG PCO2 29 mmHg (35-45); ABG PH 7.33 (7.35-7.45); ABG PO2 70 mmHg (83-108); ABG TCO2 16 mmol/L (19-24); Allen Test Performed? Yes
[2019-01-01] MEDS ORDERED: SODIUM CHLORIDE 0.9% 1,000 ML IV ONE (02:36)
[2019-01-01 05:58] LABS: Anisocytosis Slight; Basophils % (A) 0 %; Eosinophils % (A) 0 %; HCT 41.6 % (34.0-46.0); HGB 12.7 gm/dL (11.4-16.0); Hypochromasia Slight; Lymphocytes # (A) 1.2 k/uL (1.0-4.8); Lymphocytes % (A) 11 %; MCH 29.1 pg (25.0-35.0); MCHC 30.6 g/dL (31.0-37.0); MCV 95.2 fL (80.0-100.0); Mean Platelet Volume 8.8; Monocytes # (A) 0.6 k/uL (0-1.0); Monocytes % (A) 5 %; Neutrophils # (A) 8.6 k/uL (1.3-7.7); Neutrophils % (A) 82 %; Platelet Count 186 k/uL (150-450); RBC 4.37 m/uL (3.80-5.40); RDW 16.2 % (11.5-15.5); WBC 10.5 k/uL (3.8-10.6)
[2019-01-01 06:16] LABS: Calcium 8.3 mg/dL (8.4-10.2); Potassium 5.3 mmol/L (3.5-5.1); Total Protein 6.8 g/dL (6.3-8.2)
[2019-01-01] MEDS ORDERED: SODIUM CHLORIDE 0.9% 500 ML 500 ML IV ONE (06:23)
[2019-01-01] MEDS: METOPROLOL TARTRATE 50 MG TAB PO SCH ×2 (07:14→20:53)
--- NOTE | 2019-01-01 07:46 | XR ---
EXAMINATION TYPE: XR chest 1V portable DATE OF EXAM: 01/01/2019 COMPARISON: 12/31/2018 HISTORY: Shortness of breath TECHNIQUE: Single frontal view of the chest is obtained. FINDINGS: There is no enlarged cardiac mediastinal silhouette with multilead left-sided cardiac gregorio ce. Patchy bibasilar opacities are seen with very minimal interstitial edema. Cardiac loop recorder i s noted. Diffuse osseous demineralization is seen. No sizable pneumothorax. IMPRESSION: Mild interstitial prominence relates to minimal interstitial edema with similar bibasilar atelectasis .
--- NOTE | 2019-01-01 08:04 | CONS ---
TAI Campos is a 78-year-old lady who sees Dr. Wang in the outpatient setting. She has a diagnosis of symptomatic paroxysmal/paroxysmal atrial fibrillation with underlying left bundle branch block, a sick sinus syndrome with a tachy-ollie phenomena. Cardiac cath revealed no significant obstructive CAD in September. She had a biventricular pacemaker placed in preparation for AV node ablation eventually. As recently as December 03, she underwent electrical cardioversion that was performed because of symptomatic atrial fibrillation. This was a successful electrical cardioversion. She was discharged uneventfully. The plan for this lady is to have AV node ablation. However, she came into the hospital with complaints of weakness, fatigue, lack of energy and the clinical picture suggests that she has probably a urosepsis type picture. She has not been taking any oral intake and complained of nausea and dry heaves, weakness and fatigue. When she came in her heart rate was about 130, underlying rhythm appears to be sinus with A sense V paced. This morning she is not very communicative, but is not in any distress. She is resting comfortably. After she arrived, her lactic acid was high and after adequate hydration it has come down to 1.4. She seems to be hemodynamically stable. She is receiving the last bolus of 500 mL normal saline and after that I will reduce the fluids to about 75 mL/hour. Urine output has been decent. PAST MEDICAL HISTORY: 1. Persistent atrial fibrillation with a rapid ventricular rate, symptomatic, and cardiomyopathy, nonischemic type. 2. History of a biventricular pacemaker. 3. Status post partial thyroidectomy with thyroid replacement. 4. History of CVA/TIA in the past. MEDICATIONS: Medications at home include: Eliquis 5 mg b.i.d., amiodarone 200 mg daily, metoprolol succinate 100 mg daily, losartan 25 mg daily, [place] Thyroid 120 mg daily, Pepcid, atorvastatin 40 mg daily, Aldactone 25 mg daily. ALLERGIES: None. LABORATORY DATA: Laboratory data suggests some hyperkalemia and we will therefore hold the Aldactone. PHYSICAL EXAMINATION: On examination, blood pressure is 118/70, pulse rate is about 114 sinus with a left bundle atrial sensed ventricular paced. HEENT: Unremarkable. Fundus was not examined by me. NECK: Supple. There is JVD of 1 cm. No carotid bruit. S1, S2 heard normally. Tachycardia noted. Heart sounds heard distantly. Short systolic murmur is audible. Lungs reveal diminished air entry. Abdomen is soft. Lower extremities reveal diminished pulses. Central nervous system grossly no focal deficits. IMPRESSION: 1. Probable urinary tract infection and sepsis. 2. Nonischemic cardiomyopathy. 3. History of persistent atrial fibrillation, status post electrical cardioversion. 4. Status post biventricular pacemaker with plan for AV node ablation down the road. RECOMMENDATION: Patient is tachycardic secondary to her underlying sepsis. Rhythm appears to be sinus with atrial sensed ventricular paced. I am recommending that we increase her beta antony and actually change it to Lopressor 100 mg b.i.d., decrease IV fluids to 75 mL/hour and also hold Aldactone and give hydrochlorothiazide 25 mg daily in view of hyperkalemia. Discussed my thoughts in detail with the patient. Thank you very much for the consult. SANTO / TIA: [id number] /
--- NOTE | 2019-01-01 08:40 | P.HPIM ---
History of Present Illness H&P Date: 01/01/19 Chief Complaint: Shortness of breath. This is a history of physical 78-year-old white female with known history of cardiopathy with history of abnormal heart rates. She was just seen by cardiology and had pacer interrogated which was nominal several days ago. The patient is now having difficulty with shortness of breath. There was element of medication noncompliance. She is now admitted to the ICU secondary to heart failure and abnormal paced rhythm. Cardiology has been consulted. Review of Systems ROS unobtainable: due to mental status All systems: negative Past Medical History Past Medical History: Atrial Fibrillation, CVA/TIA, GERD/Reflux, Skin Disorder, Thyroid Disorder Additional Past Medical History / Comment(s): SEIZURE LIKE EPISODES-can hear people but can't talk during-last time 3 months ago, SOB w/exertion, See Dr Logan diego H&P, gout, rash on rt arm and left leg-cause unknown, History of Any Multi-Drug Resistant Organisms: None Reported Past Surgical History: Heart Catheterization, Hysterectomy, Pacemaker Additional Past Surgical History / Comment(s): Partial thyroidectomy,BILAT CATARACTS Past Anesthesia/Blood Transfusion Reactions: Previous Problems w/ Anesthesia Additional Past Anesthesia/Blood Transfusion Reaction / Comment(s): one time- anesthesia during oral surgery made heart race Type of Cardiac Device: Permanent Pacemaker Device Placement Date:: 09/2018 Past Psychological History: No Psychological Hx Reported Smoking Status: Never smoker Past Alcohol Use History: None Reported Past Drug Use History: None Reported - Past Family History Mother Family Medical History: Congestive Heart Failure (CHF), Coronary Artery Disease (CAD), Diabetes Mellitus Sister(s) Family Medical History: Cancer Additional Family Medical History / Comment(s): . Brother(s) Family Medical History: Cancer Medications and Allergies Home Medications Medication Instructions Recorded Confirmed Type Famotidine [Pepcid] 20 mg PO DAILY 08/20/13 12/31/18 History Atorvastatin [Lipitor] 40 mg PO HS 04/03/18 12/31/18 History Apixaban [Eliquis] 5 mg PO BID #60 tab 04/07/18 12/31/18 Rx Probenecid [Benemid] 500 mg PO DAILY 07/30/18 12/31/18 History Spironolactone [Aldactone] 25 mg PO DAILY 07/30/18 12/31/18 History Amiodarone [Cordarone] 200 mg PO DAILY #90 tab 10/06/18 12/31/18 Rx Metoprolol Succinate (ER) [Toprol 100 mg PO DAILY #12 tab 12/03/18 12/31/18 Rx XL] Thyroid, Pork [[place] Thyroid] 120 mg PO DAILY 12/03/18 12/31/18 History Losartan Potassium [Cozaar] 25 mg PO DAILY 12/31/18 12/31/18 History Allergies Allergy/AdvReac Type Severity Reaction Status Date / Time No Known Allergies Allergy Verified 12/31/18 17:07 Physical Exam Vitals: Vital Signs Temp Pulse Resp BP Pulse Ox 01/01/19 06:07 95 01/01/19 06:00 113 H 26 H 104/70 95 01/01/19 05:30 107 H 24 96 01/01/19 05:00 105 H 30 H 117/74 99 01/01/19 04:30 111 H 24 129/52 98 01/01/19 04:00 97.7 F 113 H 28 H 96/75 98 01/01/19 03:30 112 H 22 108/60 97 01/01/19 03:00 97.8 F 111 H 32 H 125/75 97 01/01/19 02:30 112 H 29 H 117/67 99 01/01/19 02:00 115 H 26 H 108/72 100 01/01/19 01:30 114 H 20 107/67 99 01/01/19 01:00 114 H 24 105/71 98 01/01/19 00:30 134 H 21 97/68 99 01/01/19 00:00 97.2 F L 120 H 25 H 115/49 99 12/31/18 23:30 114 H 28 H 109/85 98 12/31/18 23:23 126 H 6 L 99 12/31/18 23:15 134 H 24 119/103 93 L 12/31/18 23:00 121 H 20 101/75 98 12/31/18 22:45 120 H 15 93/70 99 12/31/18 22:30 116 H 10 L 114/75 100 12/31/18 22:15 114 H 16 106/49 100 12/31/18 22:00 116 H 19 98/79 98 12/31/18 21:45 121 H 12 94/64 98 10/03/19 21:30 117 H 18 116/80 100 12/31/18 21:15 114 H 10 L 123/90 100 12/31/18 21:00 94 F L 114 H 21 113/76 100 12/31/18 20:45 113 H 14 95/69 100 12/31/18 20:37 108/67 12/31/18 20:15 114 H 16 125/68 95 12/31/18 18:28 115 H 18 117/65 100 12/31/18 18:10 113 H 18 106/78 98 12/31/18 18:00 113 H 18 123/75 100 12/31/18 17:54 116 H 18 71/49 95 12/31/18 17:45 116 H 18 100/85 95 12/31/18 17:40 117 H 18 85/63 95 12/31/18 17:36 121 H 18 127/95 98 12/31/18 17:01 118 H 17 110/93 100 12/31/18 16:55 118 H 18 116/65 100 12/31/18 16:50 120 H 18 109/84 12/31/18 16:39 129 H 17 123/92 12/31/18 16:16 121 H 16 112/85 100 12/31/18 16:02 125 H 18 126/94 100 12/31/18 15:45 129 H 18 130/89 97 12/31/18 15:33 97.9 F 131 H 24 133/83 99 Intake and Output 12/31/18 01/01/19 01/01/19 22:59 06:59 14:59 Intake Total 3800 Output Total 122 Balance 3678 Intake: Intake, IV Titration 3800 Amount Cefepime 2 gm In Sodium 100 Chloride 0.9% 100 ml @ 200 mls/hr IVPB ONCE STA Rx#:[id number] Dextrose 5% in Water 1, 350 000 ml @ 50 mls/hr IV . Q23H BEAN with Sodium Bicarb (1 Meq/ml) 150 ml Rx#:[id number] Sodium Chloride 0.9% 1, 100 000 ml @ 100 mls/hr IV . Q10H BEAN Rx#:[id number] Sodium Chloride 0.9% 1, 1000 000 ml @ 999 mls/hr IV . Q1H1M ONE Rx#:[id number] Sodium Chloride 0.9% 1, 1000 000 ml @ 999 mls/hr IV . Q1H1M ONE Rx#:[id number] Sodium Chloride 0.9% 1, 1000 000 ml @ 999 mls/hr IV . Q1H1M STA Rx#:[id number] Vancomycin 1,250 mg In 250 Sodium Chloride 0.9% 250 ml @ 125 mls/hr IVPB ONCE ONE Rx#:[id number] Output: Urine 122 Other: Voiding Method Indwelling Catheter Weight 65.317 kg 66.2 kg - Constitutional General appearance: no acute distress - EENT Eyes: EOMI - Neck Neck: no lymphadenopathy - Respiratory Respiratory: bilateral: CTA - Cardiovascular Heart rate: 120 Rhythm: regular Heart sounds: normal: S1, S2 - Gastrointestinal General gastrointestinal: soft, no tenderness - Neurologic Neurologic: CNII-XII intact - Musculoskeletal Musculoskeletal: generalized weakness - Psychiatric Psychiatric: no intact judgment & insight Results CBC & Chem 7: 01/01/19 05:20 01/01/19 05:20 Labs: Abnormal Lab Results - Last 24 Hours (Table) 12/31/18 12/31/18 12/31/18 Range/Units 15:55 15:55 15:55 MCHC (31.0-37.0) g/dL RDW 16.0 H (11.5-15.5) % Neutrophils # (1.3-7.7) k/uL PT 14.2 H (9.0-12.0) sec INR 1.4 H (<1.2) APTT 35.0 H (22.0-30.0) sec ABG pH (7.35-7.45) ABG pCO2 (35-45) mmHg ABG pO2 (83-108) mmHg ABG HCO3 (21-25) mmol/L ABG Total CO2 (19-24) mmol/L ABG O2 Saturation (94-97) % Potassium 5.4 H (3.5-5.1) mmol/L Chloride (98-107) mmol/L Carbon Dioxide 15 L (22-30) mmol/L BUN 38 H (7-17) mg/dL Creatinine 2.03 H (0.52-1.04) mg/dL Glucose 140 H (74-99) mg/dL POC Glucose (mg/dL) (75-99) mg/dL Plasma Lactic Acid Herb (0.7-2.0) mmol/L Calcium (8.4-10.2) mg/dL AST (14-36) U/L ALT (9-52) U/L Alkaline Phosphatase 159 H (38-126) U/L Troponin I (0.000-0.034) ng/mL Total Protein 8.9 H (6.3-8.2) g/dL Albumin (3.5-5.0) g/dL Urine Protein (Negative) Ur Leukocyte Esterase (Negative) Urine WBC (0-5) /hpf Ur Squamous Epith Cells (0-4) /hpf Amorphous Sediment (None) /hpf Urine Bacteria (None) /hpf Hyaline Casts (0-2) /lpf Urine Mucus (None) /hpf 12/31/18 12/31/18 12/31/18 Range/Units 15:55 15:55 18:30 MCHC (31.0-37.0) g/dL RDW (11.5-15.5) % Neutrophils # (1.3-7.7) k/uL PT (9.0-12.0) sec INR (<1.2) APTT (22.0-30.0) sec ABG pH (7.35-7.45) ABG pCO2 (35-45) mmHg ABG pO2 (83-108) mmHg ABG HCO3 (21-25) mmol/L ABG Total CO2 (19-24) mmol/L ABG O2 Saturation (94-97) % Potassium (3.5-5.1) mmol/L Chloride (98-107) mmol/L Carbon Dioxide (22-30) mmol/L BUN (7-17) mg/dL Creatinine (0.52-1.04) mg/dL Glucose (74-99) mg/dL POC Glucose (mg/dL) (75-99) mg/dL Plasma Lactic Acid Herb 3.0 H* (0.7-2.0) mmol/L Calcium (8.4-10.2) mg/dL AST (14-36) U/L ALT (9-52) U/L Alkaline Phosphatase (38-126) U/L Troponin I 0.081 H* (0.000-0.034) ng/mL Total Protein (6.3-8.2) g/dL Albumin (3.5-5.0) g/dL Urine Protein Trace H (Negative) Ur Leukocyte Esterase Moderate H (Negative) Urine WBC 7 H (0-5) /hpf Ur Squamous Epith Cells 5 H (0-4) /hpf Amorphous Sediment Rare H (None) /hpf Urine Bacteria Rare H (None) /hpf Hyaline Casts 11 H (0-2) /lpf Urine Mucus Rare H (None) /hpf 12/31/18 12/31/18 01/01/19 Range/Units 19:24 20:35 02:18 MCHC (31.0-37.0) g/dL RDW (11.5-15.5) % Neutrophils # (1.3-7.7) k/uL PT (9.0-12.0) sec INR (<1.2) APTT (22.0-30.0) sec ABG pH 7.33 L (7.35-7.45) ABG pCO2 22 L 29 L (35-45) mmHg ABG pO2 70 L (83-108) mmHg ABG HCO3 12 L 15 L (21-25) mmol/L ABG Total CO2 13 L 16 L (19-24) mmol/L ABG O2 Saturation 91.8 L (94-97) % Potassium (3.5-5.1) mmol/L Chloride (98-107) mmol/L Carbon Dioxide (22-30) mmol/L BUN (7-17) mg/dL Creatinine (0.52-1.04) mg/dL Glucose (74-99) mg/dL POC Glucose (mg/dL) 128 H (75-99) mg/dL Plasma Lactic Acid Herb (0.7-2.0) mmol/L Calcium (8.4-10.2) mg/dL AST (14-36) U/L ALT (9-52) U/L Alkaline Phosphatase (38-126) U/L Troponin I (0.000-0.034) ng/mL Total Protein (6.3-8.2) g/dL Albumin (3.5-5.0) g/dL Urine Protein (Negative) Ur Leukocyte Esterase (Negative) Urine WBC (0-5) /hpf Ur Squamous Epith Cells (0-4) /hpf Amorphous Sediment (None) /hpf Urine Bacteria (None) /hpf Hyaline Casts (0-2) /lpf Urine Mucus (None) /hpf 01/01/19 01/01/19 Range/Units 05:20 05:20 MCHC 30.6 L (31.0-37.0) g/dL RDW 16.2 H (11.5-15.5) % Neutrophils # 8.6 H (1.3-7.7) k/uL PT (9.0-12.0) sec INR (<1.2) APTT (22.0-30.0) sec ABG pH (7.35-7.45) ABG pCO2 (35-45) mmHg ABG pO2 (83-108) mmHg ABG HCO3 (21-25) mmol/L ABG Total CO2 (19-24) mmol/L ABG O2 Saturation (94-97) % Potassium 5.3 H (3.5-5.1) mmol/L Chloride 109 H (98-107) mmol/L Carbon Dioxide 15 L (22-30) mmol/L BUN 35 H (7-17) mg/dL Creatinine 1.77 H (0.52-1.04) mg/dL Glucose 161 H (74-99) mg/dL POC Glucose (mg/dL) (75-99) mg/dL Plasma Lactic Acid Herb (0.7-2.0) mmol/L Calcium 8.3 L (8.4-10.2) mg/dL AST 91 H (14-36) U/L ALT 72 H (9-52) U/L Alkaline Phosphatase (38-126) U/L Troponin I (0.000-0.034) ng/mL Total Protein (6.3-8.2) g/dL Albumin 3.0 L (3.5-5.0) g/dL Urine Protein (Negative) Ur Leukocyte Esterase (Negative) Urine WBC (0-5) /hpf Ur Squamous Epith Cells (0-4) /hpf Amorphous Sediment (None) /hpf Urine Bacteria (None) /hpf Hyaline Casts (0-2) /lpf Urine Mucus (None) /hpf Microbiology - Last 24 Hours (Table) 12/31/18 18:30 Urine Culture - Preliminary Urine,Voided Thrombosis Risk Factor Assmnt - Choose All That Apply Any of the Below Risk Factors Present?: Yes Each Factor Represents 1 point: Medical pt on bed rest, Obesity (BMI >25), Sepsis (< 1month) Other Risk Factors: Yes Each Risk Factor Represents 3 Points: Age 75 years or older Thrombosis Risk Factor Assessment Total Risk Factor Score: 6 Thrombosis Risk Factor Assessment Level: High Risk Assessment and Plan (1) Generalized weakness Current Visit: Yes Status: Acute Code(s): R53.1 - WEAKNESS SNOMED Code(s): 95449609 (2) Heart failure Current Visit: Yes Status: Acute Code(s): I50.9 - HEART FAILURE, UNSPECIFIED SNOMED Code(s): 13383651 (3) Hypotension Current Visit: Yes Status: Acute Code(s): I95.9 - HYPOTENSION, UNSPECIFIED SNOMED Code(s): 08390897 (4) Chronic atrial fibrillation Current Visit: No Status: Acute Code(s): I48.2 - CHRONIC ATRIAL FIBRILLATION SNOMED Code(s): 516914969 Plan: Await for interrogation of pacemaker. Had a short discussion with her explaining treatment and prognosis initially. Check CBC and CMP in a.m. Appreciate multiple consultants input. Time with Patient: Greater than 30
[2019-01-01] MEDS: FAMOTIDINE 20 MG TAB PO SCH (08:46)
[2019-01-01] MEDS: AMIODARONE 200 MG TAB PO SCH (08:46)
[2019-01-01] MEDS: APIXABAN 5 MG TAB PO SCH ×2 (08:46→20:53)
[2019-01-01] MEDS ORDERED: HYDROCHLOROTHIAZIDE 25 MG TAB PO SCH (09:00)
[2019-01-01] MEDS ORDERED: APIXABAN 5 MG TAB PO SCH ×2 (09:00→22:26)
[2019-01-01] MEDS ORDERED: HYDROCHLOROTHIAZIDE 12.5 MG CAP PO SCH (09:00)
[2019-01-01] MEDS ORDERED: SPIRONOLACTONE 25 MG TAB PO SCH (09:00)
[2019-01-01] MEDS: THYROID, PORK 30 MG TAB PO SCH (09:24)
[2019-01-01] MEDS: PROBENECID 500 MG TAB PO SCH (09:24)
[2019-01-01] MEDS: LOSARTAN 25 MG TAB PO SCH (09:24)
--- NOTE | 2019-01-01 09:55 | P.CNPUL ---
History of Present Illness Consult date: 01/01/19 Requesting physician: Jacqui Navarro Reason for consult: dyspnea Chief complaint: Weakness, shortness of breath, hypotension History of present illness: This 78-year-old white female patient with past medical history of nonischemic cardiomyopathy, baseline EF of 30-35% status post biventricular pacemaker implantation in September 2018, moderately severe pulmonary hypertension, mild coronary artery disease, chronic atrial fibrillation on Eliquis, previous history of CVA, chronic headaches for which patient follows with a neurologist, hypothyroidism, lifetime nonsmoker, who was brought into the emergency department on 12/31/2018 for evaluation of generalized weakness, lethargy, headaches and shortness of breath by a family member. Her states she normally ambulates around the house, but she has been increasingly weak, a has not had any appetite, she has lost 35-40 pounds over a period of 8 months. She has been having chest pains on and off, but no fever, no chills. She has had poor oral intake, she has had some nausea, dry heaving, no diarrhea, no abdominal pain. Patient apparently has seen 3 different neurologist for evaluation of her headaches and was given no clear reason why she keeps having these headaches. In the ED, she was tachycardic on presentation, with a heart rate in the 130s, paced rhythm on the monitor, patient was given some IV Lopressor for rate control and subsequently her blood pressure did drop and patient was actually given a total of 2-1/2 L of fluid. Lactic acidosis was mild at 3.0, BNP was elevated 23,200. Cultures have been drawn and pending, broad-spectrum antibiotics have been started, chest x-ray showed bibasilar opacities resenting atelectasis versus scarring and mild pulmonary vascular congestion. Labs revealed normal white count of 9.2, hemoglobin of 13.7, INR was 1.4, sodium was 137, potassium of 5.4, chloride is 105, CO2 is 15, B1 is 38, creatinine is 2.03, lactic acid improved with fluid boluses and is down to 1.4, troponin was 0.081, proBNP as mentioned above was 23,200. Urinalysis showed moderate amount of leuks, and protein, a few WBCs and bacteria, and urine culture is pending. Patient was admitted in the intensive care unit where she is being seen this morning, she still a little drowsy, she mumbles, current blood pressure is 106/72, however patient does have intermittent hypotension with systolic in the 70s and 80s, mean is 68, she is currently on 2 L of oxygen with a pulse ox 99%, afebrile, still tachycardic on the monitor, the rate is 114 BPM, paced rhythm. Denies any acute distress, follow-up chest x-ray shows mild interstitial prominence. IV fluids infusing at a rate of 75 ML per hour, his labs showing improvement of renal function, and seems that the patient is responding to fluids. Review of Systems All systems: negative Constitutional: Reports chronic headaches, Reports fatigue, Reports poor appetite, Reports weakness, Reports weight loss, Denies chills, Denies fever Eyes: denies blurred vision, denies pain Ears, nose, mouth and throat: Denies headache, Denies sore throat Cardiovascular: Reports chest pain, Reports shortness of breath Respiratory: Reports dyspnea, Denies cough Gastrointestinal: Denies abdominal pain, Denies diarrhea, Denies nausea, Denies vomiting Genitourinary: Denies dysuria, Denies hematuria Musculoskeletal: Denies myalgias Integumentary: Denies pruritus, Denies rash Neurological: Denies numbness, Denies weakness Psychiatric: Denies anxiety, Denies depression Endocrine: Denies fatigue, Denies weight change Past Medical History Past Medical History: Atrial Fibrillation, CVA/TIA, GERD/Reflux, Skin Disorder, Thyroid Disorder Additional Past Medical History / Comment(s): SEIZURE LIKE EPISODES-can hear people but can't talk during-last time 3 months ago, SOB w/exertion, See Dr Wang H&P, gout, rash on rt arm and left leg-cause unknown, History of Any Multi-Drug Resistant Organisms: None Reported Past Surgical History: Heart Catheterization, Hysterectomy, Pacemaker Additional Past Surgical History / Comment(s): Partial thyroidectomy,BILAT CATARACTS Past Anesthesia/Blood Transfusion Reactions: Previous Problems w/ Anesthesia Additional Past Anesthesia/Blood Transfusion Reaction / Comment(s): one time- anesthesia during oral surgery made heart race Type of Cardiac Device: Biventricular Pacemaker Device Placement Date:: 09/2018 Past Psychological History: No Psychological Hx Reported Smoking Status: Never smoker Past Alcohol Use History: None Reported Past Drug Use History: None Reported - Past Family History Mother Family Medical History: Congestive Heart Failure (CHF), Coronary Artery Disease (CAD), CVA/TIA, Diabetes Mellitus, GERD/Reflux Sister(s) Family Medical History: Cancer Additional Family Medical History / Comment(s): . Brother(s) Family Medical History: Cancer Medications and Allergies Home Medications Medication Instructions Recorded Confirmed Type Famotidine [Pepcid] 20 mg PO DAILY 08/20/13 12/31/18 History Atorvastatin [Lipitor] 40 mg PO HS 04/03/18 12/31/18 History Apixaban [Eliquis] 5 mg PO BID #60 tab 04/07/18 12/31/18 Rx Probenecid [Benemid] 500 mg PO DAILY 07/30/18 12/31/18 History Spironolactone [Aldactone] 25 mg PO DAILY 07/30/18 12/31/18 History Amiodarone [Cordarone] 200 mg PO DAILY #90 tab 10/06/18 12/31/18 Rx Metoprolol Succinate (ER) [Toprol 100 mg PO DAILY #12 tab 12/03/18 12/31/18 Rx XL] Thyroid, Pork [[employer] Thyroid] 120 mg PO DAILY 12/03/18 12/31/18 History Losartan Potassium [Cozaar] 25 mg PO DAILY 12/31/18 12/31/18 History Allergies Allergy/AdvReac Type Severity Reaction Status Date / Time No Known Allergies Allergy Verified 12/31/18 17:07 Physical Exam Vitals: Vital Signs Temp Pulse Resp BP Pulse Ox 01/01/19 08:30 114 H 27 H 108/89 99 01/01/19 08:00 97.7 F 116 H 25 H 81/62 99 01/01/19 07:30 117 H 13 106/72 99 01/01/19 07:00 115 H 12 113/75 01/01/19 06:30 115 H 28 H 101/66 93 L 01/01/19 06:07 95 01/01/19 06:00 113 H 26 H 104/70 95 01/01/19 05:30 107 H 24 96 01/01/19 05:00 105 H 30 H 117/74 99 01/01/19 04:30 111 H 24 129/52 98 01/01/19 04:00 97.7 F 113 H 28 H 96/75 98 01/01/19 03:30 112 H 22 108/60 97 01/01/19 03:00 97.8 F 111 H 32 H 125/75 97 01/01/19 02:30 112 H 29 H 117/67 99 01/01/19 02:00 115 H 26 H 108/72 100 01/01/19 01:30 114 H 20 107/67 99 01/01/19 01:00 114 H 24 105/71 98 01/01/19 00:30 134 H 21 97/68 99 01/01/19 00:00 97.2 F L 120 H 25 H 115/49 99 12/31/18 23:30 114 H 28 H 109/85 98 12/31/18 23:23 126 H 6 L 99 12/31/18 23:15 134 H 24 119/103 93 L 12/31/18 23:00 121 H 20 101/75 98 12/31/18 22:45 120 H 15 93/70 99 12/31/18 22:30 116 H 10 L 114/75 100 12/31/18 22:15 114 H 16 106/49 100 12/31/18 22:00 116 H 19 98/79 98 12/31/18 21:45 121 H 12 94/64 98 12/31/18 21:30 117 H 18 116/80 100 12/31/18 21:15 114 H 10 L 123/90 100 12/31/18 21:00 94 F L 114 H 21 113/76 100 12/31/18 20:45 113 H 14 95/69 100 12/31/18 20:37 108/67 12/31/18 20:15 114 H 16 125/68 95 12/31/18 18:28 115 H 18 117/65 100 12/31/18 18:10 113 H 18 106/78 98 12/31/18 18:00 113 H 18 123/75 100 12/31/18 17:54 116 H 18 71/49 95 12/31/18 17:45 116 H 18 100/85 95 12/31/18 17:40 117 H 18 85/63 95 12/31/18 17:36 121 H 18 127/95 98 12/31/18 17:01 118 H 17 110/93 100 12/31/18 16:55 118 H 18 116/65 100 10/03/19 16:50 120 H 18 109/84 12/31/18 16:39 129 H 17 123/92 12/31/18 16:16 121 H 16 112/85 100 12/31/18 16:02 125 H 18 126/94 100 12/31/18 15:45 129 H 18 130/89 97 12/31/18 15:33 97.9 F 131 H 24 133/83 99 Intake and Output 12/31/18 01/01/19 01/01/19 22:59 06:59 14:59 Intake Total 3800 100 Output Total 122 30 Balance 3678 70 Intake: Intake, IV Titration 3800 100 Amount Cefepime 2 gm In Sodium 100 Chloride 0.9% 100 ml @ 200 mls/hr IVPB ONCE STA Rx#:[id number] Dextrose 5% in Water 1, 350 100 000 ml @ 75 mls/hr IV . [id number] BEAN with Sodium Bicarb (1 Meq/ml) 150 ml Rx#:[id number] Sodium Chloride 0.9% 1, 100 000 ml @ 100 mls/hr IV . Q10H BEAN Rx#:[id number] Sodium Chloride 0.9% 1, 1000 000 ml @ 999 mls/hr IV . Q1H1M ONE Rx#:[id number] Sodium Chloride 0.9% 1, 1000 000 ml @ 999 mls/hr IV . Q1H1M ONE Rx#:[id number] Sodium Chloride 0.9% 1, 1000 000 ml @ 999 mls/hr IV . Q1H1M STA Rx#:[id number] Vancomycin 1,250 mg In 250 Sodium Chloride 0.9% 250 ml @ 125 mls/hr IVPB ONCE ONE Rx#:[id number] Output: Urine 122 30 Other: Voiding Method Indwelling Catheter Weight 65.317 kg 66.2 kg GENERAL EXAM: Drowsy, 78-year-old white female, on 2 L of oxygen with pulse ox of 99%, appears weak and fatigued, voice is weak and patient mumbles making it difficult to understand her, does follow command appropriately, comfortable in no apparent distress. HEAD: Normocephalic/atraumatic. EYES: Normal reaction of pupils, equal size. Conjunctiva pink, sclera white. NOSE: Clear with pink turbinates. THROAT: No erythema or exudates. NECK: No masses, no JVD, no thyroid enlargement, no adenopathy. CHEST: No chest wall deformity. Symmetrical expansion. LUNGS: Equal air entry with no crackles, wheeze, rhonchi or dullness. CVS: Regular rate and rhythm, normal S1 and S2, no gallops, no murmurs, no rubs ABDOMEN: Soft, nontender. No hepatosplenomegaly, normal bowel sounds, no guarding or rigidity. EXTREMITIES: No clubbing, no edema, no cyanosis, 1+ pulses and upper and lower extremities. Extremities cool to touch MUSCULOSKELETAL: Muscle strength and tone normal. SPINE: No scoliosis or deformity SKIN: No rashes CENTRAL NERVOUS SYSTEM: Alert and oriented -1. No focal deficits, tone is normal in all 4 extremities. PSYCHIATRIC: Alert and oriented -3. Appropriate affect. Intact judgment and insight. Results - Laboratory Findings CBC and BMP: 01/01/19 05:20 01/01/19 05:20 ABG ABG pH 7.33 (7.35-7.45) L 01/01/19 02:18 ABG pCO2 29 mmHg (35-45) L 01/01/19 02:18 ABG pO2 70 mmHg (83-108) L 01/01/19 02:18 ABG O2 Saturation 91.8 % (94-97) L 01/01/19 02:18 PT/INR, D-dimer PT 14.2 sec (9.0-12.0) H 12/31/18 15:55 INR 1.4 (<1.2) H 12/31/18 15:55 Abnormal lab findings: Abnormal Labs 12/31/18 12/31/18 12/31/18 15:55 15:55 15:55 MCHC RDW 16.0 H Neutrophils # PT 14.2 H INR 1.4 H APTT 35.0 H ABG pH ABG pCO2 ABG pO2 ABG HCO3 ABG Total CO2 ABG O2 Saturation Potassium 5.4 H Chloride Carbon Dioxide 15 L BUN 38 H Creatinine 2.03 H Glucose 140 H POC Glucose (mg/dL) Plasma Lactic Acid Herb Calcium AST ALT Alkaline Phosphatase 159 H Troponin I Total Protein 8.9 H Albumin Urine Protein Ur Leukocyte Esterase Urine WBC Ur Squamous Epith Cells Amorphous Sediment Urine Bacteria Hyaline Casts Urine Mucus 12/31/18 12/31/18 12/31/18 15:55 15:55 18:30 MCHC RDW Neutrophils # PT INR APTT ABG pH ABG pCO2 ABG pO2 ABG HCO3 ABG Total CO2 ABG O2 Saturation Potassium Chloride Carbon Dioxide BUN Creatinine Glucose POC Glucose (mg/dL) Plasma Lactic Acid Herb 3.0 H* Calcium AST ALT Alkaline Phosphatase Troponin I 0.081 H* Total Protein Albumin Urine Protein Trace H Ur Leukocyte Esterase Moderate H Urine WBC 7 H Ur Squamous Epith Cells 5 H Amorphous Sediment Rare H Urine Bacteria Rare H Hyaline Casts 11 H Urine Mucus Rare H 12/31/18 12/31/18 01/01/19 19:24 20:35 02:18 MCHC RDW Neutrophils # PT INR APTT ABG pH 7.33 L ABG pCO2 22 L 29 L ABG pO2 70 L ABG HCO3 12 L 15 L ABG Total CO2 13 L 16 L ABG O2 Saturation 91.8 L Potassium Chloride Carbon Dioxide BUN Creatinine Glucose POC Glucose (mg/dL) 128 H Plasma Lactic Acid Herb Calcium AST ALT Alkaline Phosphatase Troponin I Total Protein Albumin Urine Protein Ur Leukocyte Esterase Urine WBC Ur Squamous Epith Cells Amorphous Sediment Urine Bacteria Hyaline Casts Urine Mucus 01/01/19 01/01/19 05:20 05:20 MCHC 30.6 L RDW 16.2 H Neutrophils # 8.6 H PT INR APTT ABG pH ABG pCO2 ABG pO2 ABG HCO3 ABG Total CO2 ABG O2 Saturation Potassium 5.3 H Chloride 109 H Carbon Dioxide 15 L BUN 35 H Creatinine 1.77 H Glucose 161 H POC Glucose (mg/dL) Plasma Lactic Acid Herb Calcium 8.3 L AST 91 H ALT 72 H Alkaline Phosphatase Troponin I Total Protein Albumin 3.0 L Urine Protein Ur Leukocyte Esterase Urine WBC Ur Squamous Epith Cells Amorphous Sediment Urine Bacteria Hyaline Casts Urine Mucus - Diagnostic Findings Chest x-ray: report reviewed Assessment and Plan Plan: Assessment: #1. Hypotension, could be related to hypovolemic or cardiogenic shock, or combination of both, under investigation #2. Anion gap metabolic acidosis related to lactic acidosis, and acute kidney injury #3. Acute kidney injury related to ATN #4. Nonischemic cardiomyopathy, with EF of 30-35%, status post biventricular pacemaker implantation in September 2018 #5. Chronic atrial fibrillation on Eliquis #6. Poor appetite, weight loss of 35-40 lbs over the last 8 months #7. Chronic congestive heart failure with systolic dysfunction #8. Hypothyroidism #9. Chronic headaches, has been following with a neurologist #10. Lifetime nonsmoker Plan: We will continue with gentle IV hydration, so far patient is responding to fluids, renal function is improving, patient is less tachycardic, still borderline hypotensive. We will hookup CVP monitoring, to determine the status. We need to start levo fed for blood pressure support. Blood cultures have been sent and pending, urine culture is pending, chest x-ray reviewed showing mild interstitial prominence, no clear evidence of pneumonia. No cough or congestion, no wheezing, no chest pain this morning, patient is maintaining stable oxygenation on 2 L. A bit drowsy, but follows command, may need a neurology evaluation. No fever or chills, continue with empiric antibiotic coverage. Continue with Eliquis for anticoagulation. Hold hydrochlorothiazide. GI and DVT prophylaxis, will remain the intensive care unit for close monitoring. Will continue to follow I performed a history & physical examination of the patient and discussed their management with my nurse practitioner, Marni Truong. I reviewed the nurse practitioner's note and agree with the documented findings and plan of care. Lung sounds are positive for diminished breath sounds. The findings and the impression was discussed with the patient. I attest to the documentation by the nurse practitioner. Time with Patient: Greater than 30
[2019-01-01] MEDS ORDERED: FUROSEMIDE 10 MG/ML 2 ML VIAL IV ONE ×2 (10:29→10:45)
[2019-01-01] MEDS ORDERED: VANCOMYCIN 1,250 MG in SODIUM CHLORIDE 0.9% 250 ML IVPB ONE (12:00)
[2019-01-01 12:41] LABS: ABG Base Excess -10.1 mmol/L; ABG HCO3 16 mmol/L (21-25); ABG Oxygen Saturation 98.2 % (94-97); ABG PCO2 31 mmHg (35-45); ABG PH 7.32 (7.35-7.45); ABG PO2 134 mmHg (83-108); ABG TCO2 17 mmol/L (19-24); Allen Test Performed? Yes
[2019-01-01] MEDS: DEXTROSE 5% IN WATER 1,000 ML with SODIUM BICARB (1 MEQ/ML) 150 ML IV SCH (15:10)
[2019-01-01] MEDS: ALPRAZolam 0.5 MG TAB PO PRN (15:33)
--- NOTE | 2019-01-01 16:29 | CDI ---
Documentation Clarification Form Date: 01/01/2019 3:40:00 PM From: Fadia Ellsworth Phone: Admit Date: 12/31/2018 7:27:00 PM Patient Name: Beth Caballero Visit Number: [id number] Discharge Date: ATTENTION: The Clinical Documentation Specialists (CDI) and [facility] Coding Staff appreciate your assistance in clarifying documentation. Please respond to the clarification below the line at the bottom and electronically sign. The CDI & [facility] Coding staff will review the response and follow-up if needed. Please note: Queries are made part of the Legal Health Record. If you have any questions, please contact the author of this message via ITS. Dr. Franck Alves The patient presented with the following: weakness and fatigue. History/Risk Factors: Paroxysmal atrial fibrillation, Coronary artery disease, CVA, TIA Clinical Indicators: 78-year-old female who present with fatigue and weakness, poor intake. She hasn't been drinking fluids or eating. WBC 9.2, Creatinine 2.03, Bun 38, Troponin 0.081, BNP 89715; UA: Ur Leukocyte Esterase-Moderate, Culture -Pending Lactic acid: 3.0 Vitals signs on admission: 12/31/18: 15:33 133/83 131 24 97.9 99 % Ra; 12/31 17:40 85/63 117 18 95 2/L NC 01/01 Cardiology consult (Dr. Burton) Present with clinical picture suggest probably UTI and Sepsis. History of persistent Atrial fibrillation. Patient is tachycardic secondary to her underlying sepsis. 01/01/19 Pulmonary (Dr. Navarro) Hypotension could be related to hypovolemic or cardiogenic shock, or combination of both, Anion gap metabolic acidosis related to lactic acidosis, acute kidney injury related to ATN. Treatment: ICU Monitoring Vancomycin IV (Pharmacy to dose) iv@ 75MLS W NaBicarb IV Fluid Bolus x3 Levophed drip Lasix IV In your professional opinion, please clarify if these findings signify one of the following conditions, whether the condition is POA, and cause, if known: Condition Sepsis secondary to UTI ruled in Sepsis secondary to UTI ruled out Severe Sepsis Septic Shock Other, please specify Unable to determine Present on Admission Yes No Identify the (suspected) organism Link or clarify if there is associated (due to/with Organ failure Shock SIRS Criteria (2 or more of the following may indicate SIRS): -Temperature < 96.8F (36C) or > 101.0F (38.3C) -Heart Rate > 90 bpm -Respiratory Rate > 20 breaths/min or PaCO2 < 32 mmHg -White Blood Cell Count > 12,000 or < 4,000 cells/mm3 or > 10% bands -Lactate >2.0 mmol/L (>4.0 is equivalent to septic shock) (Last Revision: June 2017) The patient is an element of severe sepsis which was present on admission. LUISD
[2019-01-01] MEDS ORDERED: ATORVASTATIN 40 MG TAB PO SCH (21:00)
[2019-01-01] MEDS: NOREPINEPHRINE 8 MG in SODIUM CHLORIDE 0.9% 250 ML IV SCH (21:03)
[2019-01-01 22:08] LABS: Glucose,Whole Blood 106 mg/dL (75-99)
[2019-01-01 22:14] LABS: Anisocytosis Slight; HCT 43.1 % (34.0-46.0); HGB 13.2 gm/dL (11.4-16.0); Hypochromasia Slight; MCH 29.2 pg (25.0-35.0); MCHC 30.6 g/dL (31.0-37.0); MCV 95.5 fL (80.0-100.0); Mean Platelet Volume 9.4; Platelet Count 199 k/uL (150-450); RBC 4.51 m/uL (3.80-5.40); RDW 16.4 % (11.5-15.5); WBC 21.2 k/uL (3.8-10.6)
[2019-01-01] MEDS ORDERED: DEXTROSE 5% IN WATER 100 ML with AMIODARONE 150 MG IV ONE (22:30)
[2019-01-01] MEDS ORDERED: AMIODARONE 300 MG in DEXTROSE 5% IN WATER 250 ML IV SCH ×2 (22:45)
[2019-01-01 22:48] LABS: Calcium 8.7 mg/dL (8.4-10.2)
[2019-01-01 23:20] LABS: Magnesium 1.8 mg/dL (1.6-2.3); Potassium 5.4 mmol/L (3.5-5.1)
[2019-01-02] MEDS ORDERED: ONDANSETRON 4 MG/2 ML VIAL IVP PRN (04:00)
[2019-01-02 04:57] LABS: Anisocytosis Slight; HCT 40.1 % (34.0-46.0); HGB 13.4 gm/dL (11.4-16.0); MCH 30.4 pg (25.0-35.0); MCHC 33.3 g/dL (31.0-37.0); MCV 91.4 fL (80.0-100.0); Mean Platelet Volume 8.8; Platelet Count 190 k/uL (150-450); RBC 4.39 m/uL (3.80-5.40); RDW 16.4 % (11.5-15.5); WBC 21.8 k/uL (3.8-10.6)
[2019-01-02] MEDS: ALPRAZolam 0.5 MG TAB PO PRN (05:08)
--- NOTE | 2019-01-02 05:58 | XR ---
EXAMINATION TYPE: XR chest 1V portable DATE OF EXAM: 01/02/2019 HISTORY: shortness of breath. REFERENCE: Previous study dated 01/01/2019. FINDINGS: There is a multilead pacing device in place on the left. There is a right internal jugular catheter in place. Its tip is in the right atrium. The heart is mildly prominent. There is bibasilar airspace disease. There is mild vascular congestion and mild pulmonary edema. This is similar to previous. IMPRESSION: NO SIGNIFICANT INTERVAL CHANGE IN THE APPEARANCE OF THE CHEST.
[2019-01-02 05:59] LABS: Albumin 2.8 g/dL (3.5-5.0); Calcium 7.6 mg/dL (8.4-10.2); Potassium 5.7 mmol/L (3.5-5.1); Total Bilirubin 1.4 mg/dL (0.2-1.3); Total Protein 6.2 g/dL (6.3-8.2)
[2019-01-02] MEDS ORDERED: DOBUTamine DRIP 500 MG in DEXTROSE/WATER 1 250ML.BAG IV SCH (06:30)
[2019-01-02] MEDS ORDERED: SODIUM CHLORIDE 0.9% 500 ML 500 ML IV ONE (07:27)
[2019-01-02] MEDS ORDERED: SODIUM CHLORIDE 0.9% 150 ML with VASOPRESSIN 60 UNIT IV SCH ×2 (08:00)
[2019-01-02] MEDS: NOREPINEPHRINE 8 MG in SODIUM CHLORIDE 0.9% 250 ML IV SCH (08:13)
[2019-01-02 08:20] VITALS: TEMP 96.6
[2019-01-02 09:36] VITALS: BP 86/58
[2019-01-02] MEDS ORDERED: MORPHINE SULFATE 4 MG/ML SYRINGE IV PRN (10:25)
[2019-01-02] MEDS ORDERED: LORazepam 2 MG/ML INJ IV PRN (10:25)
--- NOTE | 2019-01-02 10:30 | PN ---
PROGRESS NOTE Mrs. Beth Caballero is a lady with nonischemic cardiomyopathy, biventricular pacemaker, who has been admitted to the hospital with hypotension and sepsis with a lactic acid that was more than 3.0. She was hydrated. Lactic acid levels improved. However, she became progressively hypotensive yesterday had an episode of atrial fibrillation that was fast. She has underlying sinus rhythm with atrial sensed ventricular paced rate of 104 beats per minute. She is on 13 mcg of Levophed to support her blood pressure, which is in the 90s with the arterial line. S1, S2 heard normally. Short systolic murmur noted. Lungs reveal diminished air entry. Abdomen is soft. Lower extremities reveal diminished pulses and the extremities are cool. Patient is not very responsive or communicative. She is doing poorly progressively and patient and family are both here and they are seeking a DNR status. I am recommending that we will try dobutamine infusion because of possible low cardiac output state and repeat an echocardiogram. Prognosis remains poor and the patient and family considering DNR and comfort care. From a cardiac standpoint, I will recommend a dobutamine infusion to see if this will help her myocardial contractility and also obtain echocardiogram. Prognosis remains poor. MMODL / IJN: [id number] /
[2019-01-02] MEDS ORDERED: MORPHINE SULFATE (100 MG/2 ML) 100 MG in SODIUM CHLORIDE 0.9% 100 ML IV SCH (11:00)
[2019-01-02] MEDS: FAMOTIDINE 20 MG TAB PO SCH (11:44)
[2019-01-02] MEDS: AMIODARONE 200 MG TAB PO SCH (11:44)
[2019-01-02] MEDS: APIXABAN 5 MG TAB PO SCH (11:44)
[2019-01-02] MEDS: METOPROLOL TARTRATE 50 MG TAB PO SCH (11:45)
[2019-01-02] MEDS: THYROID, PORK 30 MG TAB PO SCH (11:45)
[2019-01-02] MEDS: LOSARTAN 25 MG TAB PO SCH (11:45)
[2019-01-02] MEDS: PROBENECID 500 MG TAB PO SCH (11:45)
[2019-01-02] MEDS: DEXTROSE 5% IN WATER 1,000 ML with SODIUM BICARB (1 MEQ/ML) 150 ML IV SCH (11:46)
[2019-01-02 11:51] VITALS: PULSE 99; RESP 15
--- NOTE | 2019-01-02 11:55 | P.PN ---
Subjective Progress Note Date: 01/02/19 Principal diagnosis: Acute cardiogenic shock, hypovolemia, possible sepsis, hypotension This 78-year-old white female patient with past medical history of nonischemic cardiomyopathy, baseline EF of 30-35% status post biventricular pacemaker implantation in September 2018, moderately severe pulmonary hypertension, mild coronary artery disease, chronic atrial fibrillation on Eliquis, previous history of CVA, chronic headaches for which patient follows with a neurologist, hypothyroidism, lifetime nonsmoker, who was brought into the emergency department on 12/31/2018 for evaluation of generalized weakness, lethargy, headaches and shortness of breath by a family member. Her states she normally ambulates around the house, but she has been increasingly weak, a has not had any appetite, she has lost 35-40 pounds over a period of 8 months. She has been having chest pains on and off, but no fever, no chills. She has had poor oral intake, she has had some nausea, dry heaving, no diarrhea, no abdominal pain. Patient apparently has seen 3 different neurologist for evalu ation of her headaches and was given no clear reason why she keeps having these headaches. In the ED, she was tachycardic on presentation, with a heart rate in the 130s, paced rhythm on the monitor, patient was given some IV Lopressor for rate control and subsequently her blood pressure did drop and patient was actually given a total of 2-1/2 L of fluid. Lactic acidosis was mild at 3.0, BNP was elevated 23,200. Cultures have been drawn and pending, broad-spectrum antibiotics have been started, chest x-ray showed bibasilar opacities resenting atelectasis versus scarring and mild pulmonary vascular congestion. Labs revealed normal white count of 9.2, hemoglobin of 13.7, INR was 1.4, sodium was 137, potassium of 5.4, chloride is 105, CO2 is 15, B1 is 38, creatinine is 2.03, lactic acid improved with fluid boluses and is down to 1.4, troponin was 0.081, proBNP as mentioned above was 23,200. Urinalysis showed moderate amount of leuks, and protein, a few WBCs and bacteria, and urine culture is pending. Patient was admitted in the intensive care unit where she is being seen this morning, she still a little drowsy, she mumbles, current blood pressure is 106/72, however patient does have intermittent hypotension with systolic in the 70s and 80s, mean is 68, she is currently on 2 L of oxygen with a pulse ox 99%, afebrile, still tachycardic on the monitor, the rate is 114 BPM, paced rhythm. Denies any acute distress, follow-up chest x-ray shows mild interstitial prominence. IV fluids infusing at a rate of 75 ML per hour, his labs showing improvement of renal function, and seems that the patient is responding to fluids. Reevaluated today in the ICU on 01/02/2019, patient is hypotensive in spite of being on high dose of norepinephrine 50 mcg/m, she is also on vasopressin, remains hypotensive, and in cardiogenic shock. Family is at bedside, apparently her CODE STATUS was changed yesterday to no code, and as soon as I walked in, discussed with the family her condition, and made them aware that she is not doing well, and her condition has deteriorated. Earlier today she was placed on dobutamine by cardiology, however she became tachycardic and hypotensive. Hence the dobutamine was discontinued. At any rate on family members at bedside including where made aware of her condition, and discussed comfort care measures. They seem to be quite relieved when they heard the comfort care measures, and they are very well aware that her condition is futile at this point. Then I have instructed the nurse to discontinue all her drips, and to start morphine for comfort. Family would like the patient to pass in peace comfort and dignity. And to be comfortable no matter what. Hence comfort care measures were initiated. And shortly after that, the patient passed peacefully. Objective - Vital Signs Vital signs: Vital Signs Temp 96.6 F L 01/02/19 08:11 Pulse 108 H 01/02/19 09:30 Resp 22 01/02/19 09:30 BP 86/58 01/02/19 09:30 Pulse Ox 94 L 01/02/19 09:30 Intake & Output 01/01/19 01/02/19 01/02/19 18:59 06:59 18:59 Intake Total 975 1230.499 930.843 Output Total 237 182 10 Balance 738 1048.499 920.843 Weight 67.4 kg Intake: IV 935 735 Dextrose 5% in Water 1, 825 225 000 ml @ 75 mls/hr IV . [id number] BEAN with Sodium Bicarb (1 Meq/ml) 150 ml Rx#:[id number] NS 110 510 Intake, IV Titration 725 245.499 195.843 Amount DOBUTamine DRIP 500 mg In 2.022 Dextrose/Water 1 250ml. bag @ 5 MCG/KG/MIN 10.11 mls/hr IV .Q24H BEAN Rx#: [id number] Dextrose 5% in Water 1, 725 75 000 ml @ 75 mls/hr IV . [id number] BEAN with Sodium Bicarb (1 Meq/ml) 150 ml Rx#:[id number] Norepinephrine 8 mg In 170.499 193.821 Sodium Chloride 0.9% 250 ml @ 0.05 MCG/KG/MIN 6. 405 mls/hr IV .Q24H BEAN Rx#:[id number] Oral 250 50 Output: Urine 237 182 10 Other: Voiding Method Indwelling Catheter Indwelling Catheter Indwelling Catheter ABP, PAP, CO, CI - Last Documented Arterial Blood Pressure 96/63 - Exam Physical Exam: Revealed a 78-year-old female lethargic, mumbling a few words, seems to be restless and agitated. Head: Atraumatic, normocephalic. Patient looks extremely pale, dry mucous membranes noted. HEENT:[Neck is supple.] [No neck masses.] [No thyromegaly.] [No JVD.] PERRLA, EOMI, dry mucous membranes. Chest: [Crackles bilaterally, diminished breath sounds at the bases no rhonchi no wheezes. Cardiac Exam: Tachycardic, paced rhythm, no S3 gallop. Abdomen: [Soft, nontender, no megaly, no rebound, no guarding, normal bowel sounds.] Extremities: [No clubbing, no edema, no cyanosis.] Neurological Exam: Patient is confused, lethargic, mumbling a few words, seems to be extremely restless and agitated. Does not follow any instructions. - Labs CBC & Chem 7: 01/02/19 04:45 01/02/19 04:45 Labs: Abnormal Lab Results - Last 24 Hours (Table) 01/01/19 01/01/19 01/01/19 Range/Units 12:39 21:55 22:00 WBC 21.2 H (3.8-10.6) k/uL MCHC 30.6 L (31.0-37.0) g/dL RDW 16.4 H (11.5-15.5) % ABG pH 7.32 L (7.35-7.45) ABG pCO2 31 L (35-45) mmHg ABG pO2 134 H (83-108) mmHg ABG HCO3 16 L (21-25) mmol/L ABG Total CO2 17 L (19-24) mmol/L ABG O2 Saturation 98.2 H (94-97) % Sodium (137-145) mmol/L Potassium (3.5-5.1) mmol/L Carbon Dioxide (22-30) mmol/L BUN (7-17) mg/dL Creatinine (0.52-1.04) mg/dL Glucose (74-99) mg/dL POC Glucose (mg/dL) 106 H (75-99) mg/dL Calcium (8.4-10.2) mg/dL Magnesium (1.6-2.3) mg/dL Total Bilirubin (0.2-1.3) mg/dL AST (14-36) U/L ALT (9-52) U/L Total Protein (6.3-8.2) g/dL Albumin (3.5-5.0) g/dL 01/01/19 01/02/19 01/02/19 Range/Units 22:00 04:45 04:45 WBC 21.8 H (3.8-10.6) k/uL MCHC (31.0-37.0) g/dL RDW 16.4 H (11.5-15.5) % ABG pH (7.35-7.45) ABG pCO2 (35-45) mmHg ABG pO2 (83-108) mmHg ABG HCO3 (21-25) mmol/L ABG Total CO2 (19-24) mmol/L ABG O2 Saturation (94-97) % Sodium 134 L (137-145) mmol/L Potassium 5.4 H 5.7 H (3.5-5.1) mmol/L Carbon Dioxide 15 L 11 L (22-30) mmol/L BUN 35 H 36 H (7-17) mg/dL Creatinine 2.05 H 2.11 H (0.52-1.04) mg/dL Glucose 144 H 130 H (74-99) mg/dL POC Glucose (mg/dL) (75-99) mg/dL Calcium 7.6 L (8.4-10.2) mg/dL Magnesium (1.6-2.3) mg/dL Total Bilirubin 1.4 H (0.2-1.3) mg/dL AST 2438 H (14-36) U/L ALT 1647 H (9-52) U/L Total Protein 6.2 L (6.3-8.2) g/dL Albumin 2.8 L (3.5-5.0) g/dL 01/02/19 Range/Units 04:45 WBC (3.8-10.6) k/uL MCHC (31.0-37.0) g/dL RDW (11.5-15.5) % ABG pH (7.35-7.45) ABG pCO2 (35-45) mmHg ABG pO2 (83-108) mmHg ABG HCO3 (21-25) mmol/L ABG Total CO2 (19-24) mmol/L ABG O2 Saturation (94-97) % Sodium (137-145) mmol/L Potassium (3.5-5.1) mmol/L Carbon Dioxide (22-30) mmol/L BUN (7-17) mg/dL Creatinine (0.52-1.04) mg/dL Glucose (74-99) mg/dL POC Glucose (mg/dL) (75-99) mg/dL Calcium (8.4-10.2) mg/dL Magnesium 1.5 L (1.6-2.3) mg/dL Total Bilirubin (0.2-1.3) mg/dL AST (14-36) U/L ALT (9-52) U/L Total Protein (6.3-8.2) g/dL Albumin (3.5-5.0) g/dL Microbiology - Last 24 Hours (Table) 12/31/18 18:30 Blood Culture - Preliminary Blood No Growth after 24 hours 12/31/18 18:30 Urine Culture - Final Urine,Voided Assessment and Plan Assessment: Impression: #1. Hypotension, with hypovolemia and cardiogenic shock, possible sepsis, #2. Anion gap metabolic acidosis related to lactic acidosis, and acute kidney injury #3. Acute kidney injury related to ATN #4. Nonischemic cardiomyopathy, with EF of 30-35%, status post biventricular pacemaker implantation in September 2018 #5. Chronic atrial fibrillation on Eliquis #6. Poor appetite, weight loss of 35-40 lbs over the last 8 months #7. Chronic congestive heart failure with systolic dysfunction #8. Hypothyroidism #9. Chronic headaches, has been following with a neurologist #10. Lifetime nonsmoker #11 shock liver. Based on liver enzymes this morning. And based on her profound hypotension with poor tissue perfusion. Recommendation: Condition discussed with the family at bedside, they seem to be relieved that I fully agree with comfort care measures, the prefers to see the passing with peace comfort and dignity. Hence comfort care measures will be initiated, pressors will be stopped, morphine will be started, and we will let the patient passed comfortably. Time with Patient: Greater than 30
--- NOTE | 2019-01-02 17:48 | ECHOF ---
Referral Reason:evaluate left ventricular function MEASUREMENTS -------- HEIGHT: 152.4 cm WEIGHT: 68.0 kg BP: RVIDd: 1.9 cm (< 3.3) IVSd: 1.1 cm (0.6 - 1.1) LVIDd: 4.3 cm (3.9 - 5.3) LVPWd: 1.2 cm (0.6 - 1.1) IVSs: 1.6 cm LVIDs: 3.3 cm LVPWs: 1.3 cm LAESV Index (A-L): 32.92 ml/m Ao Diam: 2.6 cm (2.0 - 3.7) AV Cusp: 1.6 cm (1.5 - 2.6) LA Diam: 4.5 cm (2.7 - 3.8) MV E Lebron: 1.43 m/s MV DecT: 184 ms MV A Lebron: 0.20 m/s MV E/A Ratio: 7.16 AR PHT: 383 ms RAP: 5.00 mmHg RVSP: 35.30 mmHg TAPSE: 13.19 mm FINDINGS -------- Pacerwire seen in RV and RA. Pacemaker This was a technically adequate study. The left ventricular size is normal. There is mild concentric left ventricular hypertrophy. There is severe global hypokinesis of LV . Overall left ventricular systolic function is severely impair ed with, an EF between 25 - 30 %. The right ventricle is normal in size. RV Systolic Dysfunction LA is midly dilated 29-33ml/m2. The right atrial size is normal. Aortic valve is trileaflet and is mildly thickened. There is mild aortic regurgitation. The mitral valve is normal. The mitral valve leaflets are mildly thickened. Mild mitral annular c alcification present. Sflhzxlr-[id number] mitral regurgitation is present. The tricuspid valve appears structurally normal. Moderate tricuspid regurgitation present. There is borderline pulmonary artery hypertension. Trace/mild (physiologic) pulmonic regurgitation. The aortic root size is normal. IVC Not well visulized. There is no pericardial effusion. CONCLUSIONS -------- 1. Pacerwire seen in RV and RA. 2. Pacemaker 3. This was a technically adequate study. 4. The left ventricular size is normal. 5. There is mild concentric left ventricular hypertrophy. 6. There is severe global hypokinesis of LV . 7. The right ventricle is normal in size. 8. RV Systolic Dysfunction 9. LA is midly dilated 29-33ml/m2. 10. The right atrial size is normal. 11. Aortic valve is trileaflet and is mildly thickened. 12. There is mild aortic regurgitation. 13. The mitral valve is normal. 14. The mitral valve leaflets are mildly thickened. 15. Mild mitral annular calcification present. 16. Nvgvkyek-[id number]-xkswcc mitral regurgitation is present. 17. The tricuspid valve appears structurally normal. 18. Moderate tricuspid regurgitation present. 19. There is borderline pulmonary artery hypertension. 20. Trace/mild (physiologic) pulmonic regurgitation. 21. The aortic root size is normal. 22. IVC Not well visulized. 23. There is no pericardial effusion. BUSINESS ASSOCIATE: Margo Vela RDCS
[2019-01-03] MEDS ORDERED: VANCOMYCIN 1,250 MG in SODIUM CHLORIDE 0.9% 250 ML IVPB ONE (06:00)
--- NOTE | 2019-02-18 13:19 | P.DS ---
Providers Date of admission: 12/31/18 19:27 Attending physician: Franck Alves Consults: 12/31/18 19:26 Consult Physician Stat Consulting Provider: Jacqui Navarro Consult Reason/Comments: icu patient Do you want consulting provider notified?: Yes 01/01/19 03:56 Consult Physician Routine Consulting Provider: [facility] Consult Reason/Comments: Pacemaker failure Do you want consulting provider notified?: Yes, Notify in am Primary care physician: Franck Alves - Discharge Diagnosis(es) (1) Generalized weakness Status: Acute (2) Heart failure Status: Acute (3) Hypotension Status: Acute (4) Chronic atrial fibrillation Status: Acute Hospital Course: This is a discharge summary on a 78-year-old white female essentially admitted for hypotension and respiratory failure. The patient was found to have significant sepsis with hypovolemic shock. The patient was placed on appropriate ICU protocol but even with this, the patient . Patient Condition at Discharge: Critical Plan - Discharge Summary Discharge Rx Participant: Yes New Discharge Prescriptions: No Action Famotidine [Pepcid] 20 mg PO DAILY Atorvastatin [Lipitor] 40 mg PO HS Apixaban [Eliquis] 5 mg PO BID #60 tab Spironolactone [Aldactone] 25 mg PO DAILY Probenecid [Benemid] 500 mg PO DAILY Amiodarone [Cordarone] 200 mg PO DAILY #90 tab Thyroid, Pork [[place] Thyroid] 120 mg PO DAILY Metoprolol Succinate (ER) [Toprol XL] 100 mg PO DAILY #12 tab Losartan Potassium [Cozaar] 25 mg PO DAILY Discharge Medication List Famotidine [Pepcid] 20 mg PO DAILY 08/20/13 [History] Atorvastatin [Lipitor] 40 mg PO HS 04/03/18 [History] Apixaban [Eliquis] 5 mg PO BID #60 tab 04/07/18 [Rx] Probenecid [Benemid] 500 mg PO DAILY 07/30/18 [History] Spironolactone [Aldactone] 25 mg PO DAILY 07/30/18 [History] Amiodarone [Cordarone] 200 mg PO DAILY #90 tab 10/06/18 [Rx] Metoprolol Succinate (ER) [Toprol XL] 100 mg PO DAILY #12 tab 12/03/18 [Rx] Thyroid, Pork [[place] Thyroid] 120 mg PO DAILY 12/03/18 [History] Losartan Potassium [Cozaar] 25 mg PO DAILY 12/31/18 [History] Follow up Appointment(s)/Referral(s): Franck Alves MD [Primary Care Provider] - 1-2 days Discharge Disposition: - Preliminary Cause of Preliminary Cause of : Septic shock and hypovolemia with infection
--- NOTE | 2019-03-02 12:50 | CDI ---
Documentation Clarification Form Date: 03/02/2019 12:32:00 PM From: Madelyn Bills RN, CCDS Email: [email or web address] Admit Date: 12/31/2018 7:27:00 PM Patient Name: Beth Caballero Visit Number: [id number] Discharge Date: 01/02/2019 10:30:00 AM ATTENTION: The Clinical Documentation Specialists (CDI) and [facility] Coding Staff appreciate your assistance in clarifying documentation. Please respond to the clarification below the line at the bottom and electronically sign. The CDI & [facility] Coding staff will review the response and follow-up if needed. Please note: Queries are made part of the Legal Health Record. If you have any questions, please contact the author of this message via ITS. Dr. Franck Alves The patient presented with weakness, dyspnea and shortness of breath. Respiratory failure is documented in the discharge summary dated 02/18. History/Risk Factor: Atrial fibrillation, CVA, pacemaker, thyroid disorder, cardiomyopathy with history of abnormal heart rates, CHF with systolic dysfunction, admitted with sepsis and UTI Clinical Indicators: dyspnea, Shortness of breath, hypotension Vital signs: HR 90-100's, RR 15-34, BP 60/30-130/119 Pulse oximetry: 66-100% Lung/Breathing assessment: crackles, diminished breath sounds ABG/CBG: pH 7.32 pO2 low of 70 pCO2 low 22 Lactate 3.0 Treatment: supplemental O2, IV Lasix O2: 2-6L NC In your professional opinion, can you please clarify if these findings signify one of the following conditions? Acute Respiratory Failure Other Diagnosis, please specify Unable to determine Specificity: If known, further specify (if known): With hypercapnia? (pCO2 >50 and pH <7.35) With hypoxia? (pO2 <60 mm Hg or SpO2 <91% on room air) The patient had acute respiratory failure with hypoxia. MTDD
== END 2019-01-02 10:30 | disposition expired | DRG 871 ==
LOC: EC 15:28 → 2SICU 19:27
PROVIDERS: ADMIT Family Medicine; ATTEND Family Medicine
PROC: 02HV33Z Insertion of Infusion Device into Superior Vena Cava, Percutaneous Approach (ICD-10-PCS; principal; 2018-12-31)
PROC: 4B02XSZ Measurement of Cardiac Pacemaker, External Approach (ICD-10-PCS; 2018-12-31)
DX: A41.9 Sepsis, unspecified organism (principal); R65.21 Severe sepsis with septic shock; K72.00 Acute and subacute hepatic failure without coma; N17.0 Acute kidney failure with tubular necrosis; J96.91 Respiratory failure, unspecified with hypoxia; E87.2 Acidosis; I42.8 Other cardiomyopathies; I50.22 Chronic systolic (congestive) heart failure; N39.0 Urinary tract infection, site not specified; I48.19 Other persistent atrial fibrillation; E89.0 Postprocedural hypothyroidism; I48.0 Paroxysmal atrial fibrillation; I25.10 Atherosclerotic heart disease of native coronary artery without angina pectoris; I27.20 Pulmonary hypertension, unspecified; I44.7 Left bundle-branch block, unspecified; Z79.01 Long term (current) use of anticoagulants; K21.9 Gastro-esophageal reflux disease without esophagitis; R57.0 Cardiogenic shock; Z51.5 Encounter for palliative care; Z66 Do not resuscitate; Z79.899 Other long term (current) drug therapy; Z82.49 Family history of ischemic heart disease and other diseases of the circulatory system; Z83.3 Family history of diabetes mellitus; Z86.73 Personal history of transient ischemic attack (TIA), and cerebral infarction without residual deficits; Z90.710 Acquired absence of both cervix and uterus; Z91.14 Patient's other noncompliance with medication regimen; Z45.010 Encounter for checking and testing of cardiac pacemaker pulse generator [battery]; R51 Headache; Z79.890 Hormone replacement therapy; Z98.42 Cataract extraction status, left eye; Z98.41 Cataract extraction status, right eye; Z80.9 Family history of malignant neoplasm, unspecified; R63.4 Abnormal weight loss; Z68.29 Body mass index [BMI] 29.0-29.9, adult; R57.1 Hypovolemic shock
CPT/HCPCS: 36415; 36556; 36600; 71045; 80048; 80053; 80202; 81001; 82805; 83605; 83735; 83880; 84443; 84484; 85025; 85027; 85610; 85730; 87040; 87086; 93005; 93306; 96361; 96365; 96374; 96375; 99291